=== PATIENT | male | born 1935 | race African-American/Black ===

== ENCOUNTER 2017-03-22 22:56 | Inpatient (IN) ==
[2017-03-22] MEDS ORDERED: CATAPRES PO ONE (23:13)
[2017-03-22 23:31] LABS: MANUAL DIFF NEEDED? NO
[2017-03-22 23:40] LABS: BASO% 0.6 % (0.0-0.8); EOS# 0.34 X1000 (0.0-0.7); EOS% 3.4 % (0.0-10.0); HEMATOCRIT 37.2 % (42.0-52.0); HEMOGLOBIN 11.3 g/dL (14.0-18.0); IMM GRAN# 0.06 X1000 (0.0-0.04); IMM GRAN% 0.6 % (0.0-0.5); LYMPH# 2.52 X1000 (1.2-3.4); LYMPH% 25.5 % (20.5-51.1); MCH 27.8 PG (27-31); MCHC 30.4 g/dL (33-37); MCV 91.4 FL (81-99); MONO# 0.71 X1000 (0.11-0.59); MONO% 7.2 % (1.7-9.3); MPV 11.6 FL (7.4-10.4); NEUT% 62.7 % (42.2-75.2); PLT 202 X1000 (130-400); RBC 4.07 XMIL (4.7-6.1)
[2017-03-23] MEDS ORDERED: TORADOL IV ONE (00:18)
[2017-03-23] MEDS ORDERED: LABETALOL IV ONE (00:25)
--- NOTE | 2017-03-23 01:37 | PROVIDER DOCUMENTATION ---
This chart was entered by Brooke Foster Scribe, acting as scribe for Arturo Rodriguez MD. HPI-General Adult - General Chief Complaint: Flank Pain Stated Complaint: LEFT FLANK PAIN Time Seen by Provider: 03/22/17 23:00 Source: patient Allergies/Adverse Reactions: Patient Allergies Allergy/AdvReac Type Severity Reaction Status Date / Time No Known Allergies Allergy Verified 03/22/17 23:07 Home Medications: Home Medication List Medication Instructions Recorded Confirmed Last Taken Type Clonidine HCl [Clonidine HCl] 1 tab PO DAILY 03/22/17 03/23/17 03/21/17 History - History of Present Illness -Gen Adult Nature of Presenting Problems: Patient is an 81 year old male with a history of CHF and renal failure who presents in the ED via EMS with complaints of "left kidney pain." He states he has had pain over his left kidney for the last month that has worsened the last two days, and states he has also had elevated blood pressure. He also states he has chronic lower extremity edema but has had worsening edema of his left leg recently. He reports he also has a history of renal failure, but refused dialysis. He denies urinary changes, fall, and any other symptoms. Location of Pain/Injury: reports: other ("left kidney") Pain Radiation: reports: no radiation Quality of Pain: reports: aching Severity: reports: moderate Onset/Duration: reports: gradual (x1 month) Timing: reports: still present, changing over time, getting worse (x2 days) Context/Activities at Onset: reports: none Modifying Factors: improves with: nothing Associated Symptoms: reports: other (hypertension, edema) Similar Symptoms Previously?: Yes Recently seen or treated by another doctor?: No Review of Systems - Adult - REVIEW OF SYSTEMS - ADULT Constitutional: reports: other (hypertension) Eyes: reports: no symptoms reported Ears, Nose, Mouth & Throat: reports: no symptoms reported Cardiovascular: reports: edema Respiratory: reports: no symptoms reported Gastrointestinal: reports: other ("left kidney pain") Genitourinary: reports: no symptoms reported. denies: see HPI, dysuria, discharge, frequency, flank pain, frequent UTI's, hematuria, hesitency, incontinence, urinary retention, urgency, other Musculoskeletal: reports: no symptoms reported Integumentary: reports: no symptoms reported Neurological: reports: no symptoms reported Psychiatric: reports: no symptoms reported Endocrine: reports: no symptoms reported Hematologic/Lymphatic: reports: no symptoms reported Allergic/Immunologic: reports: no symptoms reported All Other Systems: Reviewed and Negative Past History - Adult - PAST MEDICAL HISTORY-ADULT Review of Records: reports: Nursing Assessment Review, Medications Reviewed Major Childhood Illnesses: reports: denies history Cardiovascular: reports: CHF Respiratory: reports: denies history Obstetrical/Gynecological: reports: denies history Genitourinary: reports: kidney disease, kidney stones Musculoskeletal: reports: denies history Neurological: reports: denies history Psychiatric: reports: denies history Endocrine/Immune: reports: denies history Other Conditions: reports: denies history - PRIOR SURGERIES/PROCEDURES Surgical/Procedure History: reports: none - IMMUNIZATION STATUS Childhood Immunizations: See Nurse Assessment Flu Vaccine: See Nurse Assessment - FAMILY HISTORY Family History: reviewed, not pertinent - SOCIAL HISTORY Smoking: denies Substance Use: none/never Alcohol Use Frequency: never Physical Exam-General - PHYSICAL EXAM-ADULT Initial Vital Signs Reviewed: Yes - CONSTITUTIONAL General Appearance: alert, no apparent distress - EYES Eyes: PERRL/EOMI, pink conjunctivae - HEAD, EARS, NOSE, MOUTH & THROAT HENMT: normocephalic/atraumatic, moist mucous membranes - NECK Neck: non-tender, full range of motion, supple, normal inspection - RESPIRATORY Respiratory: chest non-tender, lungs clear, normal breath sounds, no pleuratic chest pain, no respiratory distress, no accessory muscle use - CARDIOVASCULAR Cardiovascular: normal peripheral pulses, regular rate, rhythm, no gallop, no JVD, no murmur - GASTROINTESTINAL (ABDOMEN) Abdominal Exam: soft, no organomegaly, no pulsatile mass - LYMPHATIC Lymphatic: no adenopathy - MUSCULOSKELETAL Back Exam: normal inspection, no CVA tenderness, no vertebral tenderness Extremity: normal range of motion, non-tender, no calf tenderness, normal capillary refill, pelvis stable, other (3+ edema of right lower extremity) - SKIN Integumentary: normal color, normal turgor, warm/dry - NEUROLOGIC Neurologic: grossly normal, no motor/sensory deficits - PSYCHIATRIC Psych/Mental Status: normal mood/affect, oriented x 3 Progress - PLAN OF CARE/RESULTS Progress/Plan/Lab Results: Vital Signs - 8 hr 03/22/17 22:57 03/22/17 23:03 Temperature 99 F Pulse Rate 90 87 Blood Pressure 241/156 O2 Sat by Pulse Oximetry 99 100 Laboratory Results - last 24 hr 03/22/17 03/22/17 23:27 23:27 WBC 9.90 RBC 4.07 L Hgb 11.3 L Hct 37.2 L MCV 91.4 MCH 27.8 MCHC 30.4 L RDW Std Deviation 14.5 Plt Count 202 MPV 11.6 H Immature Gran % (Auto) 0.6 H Neut % (Auto) 62.7 Lymph % (Auto) 25.5 [place] % (Auto) 7.2 Eos % (Auto) 3.4 Baso % (Auto) 0.6 Immature Gran # (Auto) 0.06 H Neut # (Auto) 6.21 Lymph # (Auto) 2.52 [place] # (Auto) 0.71 H Eos # (Auto) 0.34 Baso # (Auto) 0.06 Estimated GFR/1.73 m2 31 Orders Category Date Time Status NPO Diet 03/22/17 23:[address] ABDOMEN/PELVIS W/O CONTRAST [CT] Stat Exams 03/22/17 23:07 Ordered CBC WITH ELECTRONIC DIFF [HEME] Stat Lab 03/22/17 23:27 Completed COMPREHENSIVE METABOLIC PANEL [CHEM] Stat Lab 03/22/17 23:27 Results LIPASE [CHEM] Stat Lab 03/22/17 23:[address] W/POSS RFLX CULT [URINALYSIS] Stat Lab 03/22/17 23:08 Uncollected Clonidine [Catapres] Med 03/22/17 23:13 Discontinued 0.2 mg PO NOW ONE Ketorolac [Toradol] Med 03/23/17 00:18 Discontinued 30 mg IV NOW ONE Result Diagrams: 03/22/17 23:27 03/23/17 02:20 - CONSULTS/PCP/HOSPITALIST Notification #1 *Consult/PCP/Hospitalist*: [place] Time Discussed: 02:47 Consult Disposition: Admit Departure - Departure Date of Disposition Decision: 03/23/17 Time of Disposition Decision: 02:11 DIAGNOSIS: Flank pain, Renal insufficiency, Hyperkalemia, Uncontrolled hypertension Urinary tract infection Qualifiers: Urinary tract infection type: site unspecified Hematuria presence: with hematuria Qualified Code(s): N39.0 - Urinary tract infection, site not specified Disposition: ADMITTED INPATIENT 09 Certified Medical Emergency: Emergent Condition: Stable - Critical Care Note This patient required my direct & personal management of CC.: No Attestation - Physician/ HARJINDER Attestation Patient care was provided by Advanced Practice Provider:: No The physician spent face to face time with patient:: Yes Advanced Practice Provider documentation review:: Supervising physician onsite and consulted in the evaluation and care of this patient. The physician did have a face to face encounter with the patient. This chart was documented by the indicated scribe, (Brooke Foster Scribe) and accurately reflects the services I performed and decisions made by me, Arturo Rodriguez MD, as attested by the provider's signature.
[2017-03-23 01:43] LABS: ALBUMIN 3.7 g/dL (3.5-5.0); CALCIUM 8.6 mg/dL (8.8-10.2); TOTAL BILIRUBIN 0.3 mg/dL (0.20-1.00); TOTAL PROTEIN 7.9 g/dL (6.3-8.3)
[2017-03-23 01:48] LABS: POTASSIUM 6.9 mmol/L (3.5-5.1)
[2017-03-23] MEDS ORDERED: SODIUM BICARBONATE 8.4% IV PUSH ONE (01:49)
[2017-03-23] MEDS ORDERED: D50W SYRINGE IV ONE (01:51)
[2017-03-23] MEDS ORDERED: HUMULIN R IV ONE (01:52)
[2017-03-23 02:13] LABS: BILIRUBIN URINE NEGATIVE (NEGATIVE); COLOR YELLOW; GLUCOSE URINE NEGATIVE (NEGATIVE); LEUKOCYTES URINE 2+ (NEGATIVE); URINE SOURCE CLEAN CATCH
[2017-03-23 02:15] LABS: URINE CULTURE PL NEEDED? YES; URINE EPITHELIAL CELLS <10 /HPF (<10); URINE RBC 20-40 /HPF (<10); URINE WBC 20-40 /HPF (<10)
--- NOTE | 2017-03-23 02:18 | ED EKG INTERP ---
This chart was entered by Brooke Foster Scribe, acting as scribe for Arturo Rodriguez MD. EKG Interpretation - EKG Time of EKG reading by physician:: 01:53 EKG Read and Signed by:: Arturo Rodriguez (no STEMI) EKG Interpretation (*Must complete 3 of following elements*): Abnormal Rate: 53 Rhythm: sinus bradycardia [place]: normal QRS: normal [place] Interval: normal ST Wave: non-specific ST changes (ST & T wave abnormality, consider lateral ischemia) Comments: poss. left atrial enlargement Attestation - Physician/ HARJINDER Attestation Patient care was provided by Advanced Practice Provider:: No The physician spent face to face time with patient:: Yes Advanced Practice Provider documentation review:: Supervising physician onsite and consulted in the evaluation and care of this patient. The physician did have a face to face encounter with the patient. This chart was documented by the indicated scribe, (Brooke Foster Scribe) and accurately reflects the services I performed and decisions made by me, Arturo Rodriguez MD, as attested by the provider's signature.
[2017-03-23] MEDS ORDERED: ROCEPHIN 1 GM in NS 50 ML IV ONE (02:43)
[2017-03-23 02:45] LABS: CALCIUM 8.1 mg/dL (8.8-10.2)
[2017-03-23 02:47] LABS: POTASSIUM 6.6 mmol/L (3.5-5.1)
[2017-03-23] MEDS ORDERED: NS 1,000 ML IV ONE (02:53)
[2017-03-23] MEDS: KAYEXALATE PO SCH ×5 (04:52→22:03)
--- NOTE | 2017-03-23 05:33 | EKG Report ---
Test Performed on : 03/23/2017 01:53:38 AM Test Reason : pain Blood Pressure : / mmHG Vent. Rate : 053 BPM Atrial Rate : 053 BPM P-R Int : 172 ms QRS Dur : 082 ms QT Int : 434 ms P-R-T Axes : 044 033 146 degrees QTc Int : 407 ms Sinus bradycardia. Possible Left atrial enlargement ST \T\ T wave abnormality, consider lateral ischemia Abnormal ECG No previous ECGs available Unconfirmed Result
[2017-03-23 05:50] LABS: BLOOD URINE 3+ (NEGATIVE); CLARITY SL. CLOUDY (CLEAR); NITRITE URINE NEGATIVE (NEGATIVE); PROTEIN URINE 2+(100 mg/dL) mg/dL (NEGATIVE); SP GRAVITY URINE 1.005; UROBILINOGEN URINE NORMAL
[2017-03-23] MEDS ORDERED: DILAUDID IV ONE (05:54)
--- NOTE | 2017-03-23 07:40 | Diag Imaging Result Doc PS360 ---
EXAM: CT ABDOMEN/PELVIS W/O CONTRAST - 03/22/2017 HISTORY: left flank pain TECHNIQUE: Without contrast CT renal stone search. Dose reduction protocol. COMPARISON: None. FINDINGS: There is no hydronephrosis or perinephric edema identified. There is no renal stone identified. There is a 4.7 cm left renal cyst. The urinary bladder is moderately distended. There is no evidence of bowel obstruction. There is uncomplicated colonic diverticulosis which is most extensive at the sigmoid. The appendix is unremarkable. There is no free air. There are multiple calcified granulomas from old granulomatous disease of the liver and spleen. There is a 1.7 cm hepatic cysts. The adrenal glands, pancreas, and gallbladder are unremarkable. There are some scattered borderline retroperitoneal and inguinal lymph nodes. There are nonspecific hazy mild opacities at the lung bases. There are substantial lumbar spine degenerative changes noted, including apparent spinal stenosis at several levels. Images of pelvis otherwise show enlarged prostate. There is heterotopic bone formation near the anterior left hip. IMPRESSION: No evidence of renal stone or hydronephrosis. Distended urinary bladder. No bowel obstruction. Unremarkable appendix. Uncomplicated colonic diverticulosis. Scattered borderline retroperitoneal and inguinal lymph nodes. Lumbar spine degenerative changes, including apparent multilevel spinal stenosis. The construction project assistant radiologist provided primary results at 1:27 AM on 03/23/2017. Electronically signed by Madhu Clinton 03/23/2017 7:37 AM
[2017-03-23 07:44] LABS: HEMATOCRIT 31.9 % (42.0-52.0); HEMOGLOBIN 9.6 g/dL (14.0-18.0); MCH 27.7 PG (27-31); MCHC 30.1 g/dL (33-37); MCV 92.2 FL (81-99); MPV 11.2 FL (7.4-10.4); RBC 3.46 XMIL (4.7-6.1)
[2017-03-23 08:03] LABS: ALBUMIN 3.4 g/dL (3.5-5.0); CALCIUM 8.1 mg/dL (8.8-10.2); TOTAL BILIRUBIN 0.3 mg/dL (0.20-1.00); TOTAL PROTEIN 6.9 g/dL (6.3-8.3)
[2017-03-23 08:05] LABS: POTASSIUM 6.3 mmol/L (3.5-5.1)
[2017-03-23] MEDS: CATAPRES PO SCH (12:28)
[2017-03-23] MEDS ORDERED: DILAUDID IV PRN (13:15)
[2017-03-23] MEDS ORDERED: SODIUM CHLORIDE 0.9% INJ ONE (13:57)
[2017-03-23] MEDS ORDERED: PHENERGAN IV ONE (13:57)
[2017-03-23] MEDS ORDERED: PHENERGAN IV PRN (14:00)
[2017-03-23] MEDS ORDERED: SODIUM CHLORIDE 0.9% INJ PRN (14:00)
--- NOTE | 2017-03-23 15:50 | HISTORY AND PHYSICAL ---
PRIMARY CARE PHYSICIAN: Dr. Mooney. CHIEF COMPLAINT: Left kidney pain x1 month but worse over the last 2 days. HISTORY OF PRESENTING ILLNESS: This is an 81-year-old male who presents to [facility] ER with complaints of left kidney pain for 1 month that has progressively worsened over the last 2 days. States he has chronic kidney disease. His workup in the ER showed a potassium of 6.9, a creatinine of 2.1 with a BUN of 29. Urinalysis showed 3+ blood, 20-40 microscopic red blood cells, 2+ white blood cells, and 2+ bacteria. An abdomen and pelvis CT was obtained that showed no evidence of a renal stone or hydronephrosis. No bowel obstruction. So, he was admitted to the medical unit for further evaluation and treatment. PAST MEDICAL HISTORY: Congestive heart failure, chronic kidney disease, and hypertension. PAST SURGICAL HISTORY: None. FAMILY HISTORY: Noncontributory. SOCIAL HISTORY: He lives with family. Denies any tobacco, alcohol, or illicit drug use. ALLERGIES: He has no known drug allergies. HOME MEDICATIONS: He takes clonidine 0.1 mg p.o. daily. LABORATORY DATA: White blood cells of 9.90, hemoglobin 11.3, hematocrit 37.2, platelets 202,000. Sodium 137, potassium 6.9, chloride 108, CO2 21, BUN of 29, creatinine 2.1, glucose 97. Lipase of 25. Urinalysis showed 3+ blood, negative nitrites, 2+ white blood cells, 20-40 microscopic red blood cells, and 2+ bacteria. A CT of the abdomen and pelvis showed no evidence of a renal stone or hydronephrosis. No bowel obstruction. An unremarkable appendix. Uncomplicated colonic diverticulosis. REVIEW OF SYSTEMS: He denied any fever, chills, blurred vision, dizziness, chest pain, coughing, shortness of breath. He was positive for left flank pain. Denied any constipation, diarrhea. PHYSICAL EXAMINATION: VITAL SIGNS: On arrival, he had a temperature of 99 degrees, pulse 90, respirations 20, blood pressure 241/156, saturating 100% on room air. He was given clonidine 2 mg x1 dose and labetalol 10 mg IV x1 dose in the emergency room. Currently blood pressure is 166/86. GENERAL: This is an 81-year-old male who is lying in the bed and answers questions appropriately. HEENT: Normocephalic, atraumatic. Pupils are equal, round, reactive to light. Extraocular movements are intact. Oropharynx and nares are clear. NECK: Supple. LUNGS: Clear to auscultation bilaterally with equal lung expansion and chest wall movement. HEART: With regular rate and rhythm. No murmurs, rubs, or gallops. ABDOMEN: Soft, nontender, nondistended. Bowel sounds are present x4 quadrants. EXTREMITIES: No clubbing, cyanosis, or edema. NEUROLOGICAL: The cranial nerves 2 through 12 are grossly intact. ASSESSMENT: 1. Left flank pain. 2. Urinary tract infection with hematuria. 3. Hyperkalemia. 4. Chronic kidney disease stage 3. PLAN: He was admitted to the medical unit at [place]. Placed on telemetry, O2 per protocol, healthy heart diet. We are obtaining a urine culture. Normal saline at 75 mL an hour, Rocephin 1 gram IV q.24. Giving Kayexalate 15 g p.o. q.6 hours. We will recheck a CBC and BMP in the a.m. Dictated by GWENDOLYN Guillory for Matthieu Martin MD cc: GWENDOLYN Guillory MD Dr. Powell
[2017-03-23] MEDS: DILAUDID IV PRN (22:27)
[2017-03-23] MEDS: ZOFRAN IV PRN (22:28)
[2017-03-24] MEDS: DILAUDID IV PRN ×3 (03:30→16:46)
[2017-03-24] MEDS: ROCEPHIN 1 GM in NS 50 ML IV SCH (03:56)
[2017-03-24] MEDS: KAYEXALATE PO SCH ×2 (03:56→08:46)
[2017-03-24] MEDS: ZOFRAN IV PRN ×2 (03:59→08:46)
[2017-03-24 06:16] LABS: MANUAL DIFF NEEDED? NO
[2017-03-24 06:47] LABS: BASO% 0.3 % (0.0-0.8); EOS# 0.14 X1000 (0.0-0.7); EOS% 1.1 % (0.0-10.0); HEMATOCRIT 37.1 % (42.0-52.0); HEMOGLOBIN 11.1 g/dL (14.0-18.0); IMM GRAN# 0.04 X1000 (0.0-0.04); IMM GRAN% 0.3 % (0.0-0.5); LYMPH# 2.73 X1000 (1.2-3.4); LYMPH% 21.4 % (20.5-51.1); MCHC 29.9 g/dL (33-37); MCV 93.7 FL (81-99); MONO# 1.71 X1000 (0.11-0.59); MONO% 13.4 % (1.7-9.3); MPV 11.5 FL (7.4-10.4); NEUT% 63.5 % (42.2-75.2); PLT 167 X1000 (130-400); RBC 3.96 XMIL (4.7-6.1)
[2017-03-24 07:04] LABS: CALCIUM 8.1 mg/dL (8.8-10.2)
[2017-03-24 07:08] LABS: POTASSIUM 6.7 mmol/L (3.5-5.1)
[2017-03-24] MEDS: CATAPRES PO SCH (08:46)
[2017-03-24] MEDS ORDERED: CALCIUM GLUCONATE 4.65 MEQ in NS 50 ML IV ONE (10:40)
[2017-03-24] MEDS ORDERED: VELTASSA PO ONE (10:41)
[2017-03-24] MEDS ORDERED: ALBUTEROL NEB INH ONE ×2 (10:42→11:02)
[2017-03-24] MEDS ORDERED: HUMULIN R (PARKWAY) SUBQ ONE ×2 (10:46→14:30)
[2017-03-24] MEDS ORDERED: D50W SYRINGE IV ONE ×2 (10:47→14:30)
[2017-03-24] MEDS ORDERED: NS 1,000 ML IV ONE ×2 (11:04→15:00)
[2017-03-24] MEDS ORDERED: NS 250 ML ONE (11:42)
--- NOTE | 2017-03-24 12:05 | PROGRESS NOTE ---
DATE: 03/24/2017 SUBJECTIVE: The patient has no focal complaints except he is not happy about the diarrhea he is getting, and we had not been able to maintain IV access, and he is upset about that. He wanted to go home. We had a long discussion about those issues. OBJECTIVE: Blood pressure 165/67, heart rate of 83, respiratory rate 18, temperature 97.5 degrees, 97 2 L. Cardiovascular: Regular rate and rhythm. Pulmonary: Bilateral breath sounds clear to auscultation. GI: Soft, nontender, nondistended. Bowel sounds are positive. LABORATORY DATA: White count 12, hemoglobin and hematocrit 11 and 37. Platelets 167,000. Potassium 6.7. BUN and creatinine of 33 and 2.4. PROBLEM LIST: 1. Acute kidney failure. I think he probably has chronic kidney failure. His GFR is around 26, so I think that puts him right at stage 4, G4, it looks like, although he came in at 31, so he was round about stage 3 at that time; but, in any case, we will give fluids. I suspect he has chronic renal failure. He has got lower extremity edema which may be related to his hypertensive nephropathy. He does have significant proteinuria. We will do a 24-hour urine to evaluate for nephrotic syndrome. 2. Hyperkalemia persists. I do not think he has been taking the Kayexalate as ordered. We will start Veltassa. I do think he needs to take a dose of Kayexalate this morning though, and we discussed that this was really the only treatment he had because he does not want to pursue dialysis we also instituted other measures to get his potassium level down. We will repeat his level this afternoon and follow. I do think he probably needs renal consultation because he needs chronic management of this but, again, he is very adamant about not wanting dialysis. 3. Urinary tract infection. Continue empiric antibiotics. Urine culture is no growth thus far. DISPOSITION: Pending resolution of his renal issues specially his hyperkalemia. cc: Magdy Long MD
--- NOTE | 2017-03-24 13:42 | Diag Imaging Result Doc PS360 ---
EXAM: CHEST-PORTABLE - 03/24/2017 HISTORY: picc TECHNIQUE: Portable chest 12:37 PM with additional image at 12:46 PM COMPARISON: None. FINDINGS: There is a PICC line which enters from the right. On the first image, the tip of the PICC line is at the right atrium. On the second image, the PICC line has been withdrawn mildly, with its tip at the mid superior vena cava. There is mild cardiomegaly. There is mild subsegmental atelectasis at the lung bases. There is no consolidation, pleural effusion, or pneumothorax identified. IMPRESSION: Tip of PICC line at mid superior vena cava. Mild cardiomegaly. Electronically signed by Madhu Clinton 03/24/2017 1:39 PM
--- NOTE | 2017-03-24 17:35 | CONSULTATION ---
DATE OF CONSULTATION: 03/24/2017 REASON FOR CONSULTATION: Chronic kidney disease and hyperkalemia. HISTORY OF PRESENT ILLNESS: Mr. Torres is an 81-year-old man with history of congestive heart failure and hypertension. He says he has been aware of kidney disease for about a year when Dr. Mooney recommended that he come to see us. He declined and has not sought attention for his kidney disease. Otherwise, he came to the hospital because he was having pain in the left flank. This has been going on for probably a month but was more bothersome over the weekend. The pain is in the left flank and was worse with certain changes in position. Not colicky. No nausea or vomiting, chills, fevers, anorexia, change in bowel habits, etc. He came for evaluation and was seen in the emergency room where he was noted to have a creatinine of 2.1. We had no old data in the system. Potassium was 6.9 with a normal anion gap. CT of the abdomen did not demonstrate any kidney abnormalities. He has been treated with Kayexalate and Veltassa to try and manage his potassium. Otherwise, he states he feels fine. He does have lower extremity swelling but this has been a very stable problem. Does have some shortness of breath which he attributes to asbestosis. No change in those symptoms. PAST MEDICAL HISTORY: As above. HOME MEDICATION: Was clonidine 0.1 mg daily. Currently he is receiving Veltassa, ceftriaxone, promethazine, ondansetron, hydromorphone, heparin, clonidine, normal saline. ALLERGIES: None. SOCIAL HISTORY: He lives in [place] with his family. No alcohol or tobacco. FAMILY HISTORY: Negative for renal disease, otherwise noncontributory. REVIEW OF SYSTEMS: Otherwise noncontributory. PHYSICAL EXAMINATION: Vital Signs: Blood pressure 165/67, heart rate 83, respiration 18, afebrile. Generally: He is in no acute distress. Skin: Warm and dry. HEENT: Conjunctivae are pink. Pupils are equal. Oropharynx is clear. Normal tongue, normal dentition. Neck: Supple. Trachea is midline. No jugular venous distention. Heart: Regular with a gallop. No rubs or murmurs. Lungs: Have equal excursion. Equal breath sounds. No dullness, crackles, wheezes, accessory muscle use or retractions. Abdomen: Soft, nontender. Bowel sounds present. Extremities: Have 2+ edema extending to the knee. No clubbing or cyanosis. LABORATORY DATA: Sodium 137, potassium 6.7, chloride 107, bicarbonate 17, BUN 33, creatinine 2.4. Hemoglobin 11.1. IMPRESSION: 1. Chronic kidney disease. Likely he is at his historical baseline. Will complete evaluation with 24 hour urine. 2. Hyperkalemia. He has type 4 renal tubular acidosis pattern. It is likely that he has been living with significant hyperkalemia for extended time. He is tolerating it rather well. I agree with the use of Veltassa and we can continue that as an outpatient if appropriate. Low potassium diet and addition of sodium bicarbonate may also help. cc: Lopez Alcaraz MD
[2017-03-24 19:45] LABS: POTASSIUM 5.5 mmol/L (3.5-5.1)
[2017-03-24] MEDS: HEPARIN SUBQ SCH (20:59)
[2017-03-24] MEDS: SODIUM BICARBONATE PO SCH (21:00)
[2017-03-24] MEDS: APRESOLINE IV PRN (22:20)
[2017-03-25] MEDS ORDERED: NS 1,000 ML ONE (02:31)
[2017-03-25] MEDS: APRESOLINE IV PRN (05:00)
[2017-03-25] MEDS: ROCEPHIN 1 GM in NS 50 ML IV SCH (05:25)
[2017-03-25 06:06] LABS: HEMATOCRIT 34.8 % (42.0-52.0); HEMOGLOBIN 10.3 g/dL (14.0-18.0); MCH 27.5 PG (27-31); MCHC 29.6 g/dL (33-37); MCV 92.8 FL (81-99); MPV 11.8 FL (7.4-10.4); RBC 3.75 XMIL (4.7-6.1)
[2017-03-25 06:35] LABS: CALCIUM 8.3 mg/dL (8.8-10.2); POTASSIUM 4.7 mmol/L (3.5-5.1)
[2017-03-25] MEDS: HEPARIN SUBQ SCH ×2 (08:23→22:24)
[2017-03-25] MEDS: CATAPRES PO SCH ×2 (08:23→22:25)
[2017-03-25] MEDS: SODIUM BICARBONATE PO SCH ×2 (08:24→22:25)
[2017-03-25] MEDS: VELTASSA PO SCH (10:10)
[2017-03-25] MEDS ORDERED: NS 1,000 ML IV SCH (16:50)
[2017-03-25] MEDS ORDERED: ZOFRAN IV PRN (17:31)
[2017-03-25] MEDS ORDERED: LACTULOSE PO PRN (17:44)
[2017-03-25] MEDS ORDERED: LACTULOSE PO ONE (17:44)
[2017-03-25 20:08] LABS: UR CREATININE 90.1 mg/dL (14-26); UR PROTEIN 70.8 mg/dL
[2017-03-25 20:23] LABS: UR CREATININE TOTAL 1351.5 mg/24 (800-1800)
[2017-03-26] MEDS: ROCEPHIN 1 GM in NS 50 ML IV SCH (02:52)
[2017-03-26] MEDS: APRESOLINE IV PRN (03:55)
--- NOTE | 2017-03-26 04:00 | ECHO REPORT ---
ORDER DATE: 03/24/2017 MEASUREMENTS: Left ventricular end-diastolic diameter 4.1, end-systolic diameter 2.5, septal thickness 1.6, posterior wall thickness 1.6, left atrium 4.2, aortic root 3.5. SUMMARY: 1. Technically difficult study due to limited acoustic window quality. 2. Mild sclerosis of trileaflet aortic valve demonstrated with adequate aortic valve opening evident. Peak gradient across the aortic valve is less than 15 mmHg. Mitral, tricuspid, and pulmonic valves are without evidence of structural abnormality. There is trace tricuspid regurgitation. The aortic root is normal in size. 3. Normal left ventricular chamber size with moderate concentric left hypertrophy is demonstrated. Estimated left ejection fraction appears to be at least 70%. No regional wall motion abnormalities are evident. Doppler suggests grade 1 left ventricular diastolic dysfunction. Left atrium is mildly enlarged. Right atrium and right ventricle are normal in size with normal right ventricular systolic function. 4. No pericardial effusion. 5. Appearance of the inferior vena cava suggests normal central venous pressure. CONCLUSIONS: 1. Technically difficult study. 2. Mild aortic valve sclerosis without stenosis. 3. Moderate concentric left hypertrophy with estimated left ejection fraction greater than 70%. 4. Mild left atrial enlargement. 5. Grade 1 left ventricular diastolic dysfunction. cc: MD Magdy Isabel MD
[2017-03-26 06:25] LABS: HEMATOCRIT 32.4 % (42.0-52.0); HEMOGLOBIN 9.7 g/dL (14.0-18.0); MCH 27.4 PG (27-31); MCHC 29.9 g/dL (33-37); MCV 91.5 FL (81-99); RBC 3.54 XMIL (4.7-6.1)
[2017-03-26 06:44] LABS: ALBUMIN 3.3 g/dL (3.5-5.0); CALCIUM 7.9 mg/dL (8.8-10.2); POTASSIUM 4.3 mmol/L (3.5-5.1)
[2017-03-26] MEDS: SODIUM BICARBONATE PO SCH (09:27)
[2017-03-26] MEDS: HEPARIN SUBQ SCH (09:27)
[2017-03-26] MEDS: CATAPRES PO SCH (09:28)
[2017-03-26] MEDS: VELTASSA PO SCH (11:06)
[2017-03-26] MEDS ORDERED: APRESOLINE PO ONE (15:28)
[2017-03-26 16:08] VITALS: BP 208/93
--- NOTE | 2017-03-27 10:21 | DISCHARGE SUMMARY ---
ADMISSION DATE: 03/23/2017 DISCHARGE DATE: 03/26/2017 DISCHARGE DIAGNOSES: 1. Acute kidney injury. 2. Accelerated hypertension, uncontrolled, malignant. 3. Persistent hyperkalemia. 4. Chronic renal failure, stage 3. 5. Urinary tract infection with nonspecific culture. HOSPITAL COURSE: Briefly, this is an 81-year-old male presenting with left flank pain. He had a creatinine of 2.1 and a potassium of 6.9. Abdominal pelvic CT did not show renal stone or hydronephrosis. He was placed on O2, IV fluids, Rocephin, and he was given Kayexalate every 6 hours. On 03/24/2017, he got a little bit upset about the amount of diarrhea he was having, various complaints. We explained that we needed to watch him until his potassium level at least stabilized and we knew how his kidney function was going to progress. We did a 24-hour urine and 24-hour creatinine. He was placed on veltassa in addition to Kayexalate. The following day, his potassium improved. It went down to 5.5, then 4.7, on the day of discharge 4.3. His creatinine has stayed stable for 3 days, 2.2, and his hemoglobin and hematocrit has hovered between 9 and 32 and up to 10 and 34. Clinically, he stabilized and his urine test did not show significant proteinuria. GFR has hovered around 29-30. Dr. Alcaraz was consulted and made some recommendations that he would need to be followed as an outpatient, but I think his normal level of renal function creatinine is around 2.2. hyperkalemia, Dr. Alcaraz felt was related to possible RTA, type 4. Recommended a low potassium diet and sodium bicarbonate. He has been stable here. My plan was not to necessarily discharge him on veltassa or sodium bicarbonate. We will touch base with Dr. Alcaraz. DISCHARGE MEDICATIONS: 1. Clonidine 0.1 b.i.d., it has been a medication before for him and I encouraged compliance. 2. Hydralazine 25 t.i.d., because his blood pressures have been 180s, sometimes down to the 160s, but I think he has longstanding hypertension. DISCHARGE CONDITION: Stable. PLAN: Please follow up with Dr. Mooney and Dr. Alcaraz. He was given WALDEMAR hose for his lower extremity edema. We will continue to follow. Greater than 32 minute discharge. cc: Magdy Long MD
== END 2017-03-26 18:05 | disposition home or self-care (01) ==
LOC: P.ED 22:56 → SUATTDRO 03-23 02:59 → P.MEDSURG 03-23 02:59
PROVIDERS: ATTEND Internal Medicine

== ENCOUNTER 2018-12-01 12:46 | Inpatient (IN) ==
[2018-12-01] MEDS ORDERED: LASIX IV ONE (13:24)
[2018-12-01] MEDS ORDERED: LABETALOL IV ONE (13:24)
[2018-12-01] MEDS ORDERED: DUONEB (A & A) INH ONE (13:25)
[2018-12-01] MEDS ORDERED: LABETALOL ONE (13:41)
--- NOTE | 2018-12-01 13:55 | Diag Imaging Result Doc PS360 ---
EXAM: CHEST-PORTABLE HISTORY: DYSPNEA TECHNIQUE: Portable chest single view COMPARISON: 03/24/2017 FINDINGS: The lungs are well expanded. The heart is mildly enlarged. The vessels are not distended. There are no infiltrates. No effusion identified. Prominent arthritis to each shoulder. IMPRESSION: Cardiomegaly, but no definite congestive failure. Electronically signed by Brandon Childs 12/01/2018 1:53 PM
[2018-12-01 14:16] LABS: BASO# 0.04 X1000 (0.0-0.2); BASO% 0.4 % (0.0-0.8); EOS% 3.8 % (0.0-10.0); HEMATOCRIT 37.9 % (42.0-52.0); HEMOGLOBIN 11.7 g/dL (14.0-18.0); IMM GRAN# 0.03 X1000 (0.0-0.04); IMM GRAN% 0.3 % (0.0-0.5); LYMPH# 3.56 X1000 (1.2-3.4); LYMPH% 33.6 % (20.5-51.1); MCH 28.9 PG (27-31); MCHC 30.9 g/dL (33-37); MCV 93.6 FL (81-99); MONO% 7.5 % (1.7-9.3); MPV 11.4 FL (7.4-10.4); NEUT# 5.78 X1000 (1.4-6.5); NEUT% 54.4 % (42.2-75.2); PLT 211 X1000 (130-400); RBC 4.05 XMIL (4.7-6.1); WBC 10.61 X1000 (4.8-10.8)
[2018-12-01 14:23] LABS: BILIRUBIN URINE NEGATIVE (NEGATIVE); BLOOD URINE 3+ (NEGATIVE); CLARITY VERY CLOUDY (CLEAR); COLOR YELLOW; GLUCOSE URINE NEGATIVE (NEGATIVE); KETONE URINE NEGATIVE (NEGATIVE); LEUKOCYTES URINE 2+ (NEGATIVE); NITRITE URINE NEGATIVE (NEGATIVE); PROTEIN URINE 2+(100 mg/dL) mg/dL (NEGATIVE); SP GRAVITY URINE 1.005; UROBILINOGEN URINE NORMAL
[2018-12-01 14:26] LABS: URINE SOURCE CLEAN CATCH
[2018-12-01 14:29] LABS: ALBUMIN 3.8 g/dL (3.5-5.0); CALCIUM 7.9 mg/dL (8.8-10.2); POTASSIUM 5.6 mmol/L (3.5-5.1); TOTAL BILIRUBIN 0.2 mg/dL (0.20-1.00); TOTAL PROTEIN 7.5 g/dL (6.3-8.3)
[2018-12-01 14:29] LABS: URINE EPITHELIAL CELLS <10 /HPF (<10); URINE WBC TNTC /HPF (<10)
[2018-12-01 14:30] LABS: URINE BACTERIA 4+ /HFP; URINE CAST NONE SEEN /LPF; URINE CRYSTAL NONE SEEN /HPF; URINE YEAST NONE SEEN /HPF
[2018-12-01 14:59] LABS: BE -7.1 mmoll (-3.0-3.0); BLOOD TYPE ARTERIAL; HCO3-(ACT) 19.3 mmoll (20.0-26.0); METHB 1.3 % (0.0-1.5); O2(CT) 15.8 mL/dL (15.0-23.0); O2HB 93.9 % (95.0-99.0); PCO2(98.6) 38 mmHg (35-45); PO2(98.6) 77 mmHg (60-100); SAMPLE BLOOD; SAO2 97.1 % (95.0-100.0); THB 11.9 g/dL (11.5-17.4)
[2018-12-01 15:30] LABS: ALLEN TEST YES; MODALITY ROOM AIR
[2018-12-01] MEDS ORDERED: ZOSYN 2.25 GM in NS 50 ML IV ONE (15:34)
--- NOTE | 2018-12-01 16:34 | Extremity Venous Study ---
EXAM: Venous U/S Bilateral Legs - 12/01/2018 HISTORY: DYSPNEA/CP LOWER EXTREMITY EDEMA RT>LT TECHNIQUE: Bilateral lower extremity Doppler venous ultrasound COMPARISON: None. FINDINGS: The deep veins of the bilateral lower extremities demonstrate flow and compressibility. There are no filling defects identified. IMPRESSION: No evidence of deep venous thrombosis in either lower extremity. Electronically signed by Madhu Clinton 12/01/2018 4:31 PM
--- NOTE | 2018-12-01 16:54 | EKG Report ---
Test Performed on : 12/01/2018 2:58:42 PM Test Reason : CP Blood Pressure : / mmHG Vent. Rate : 077 BPM Atrial Rate : 077 BPM P-R Int : 168 ms QRS Dur : 086 ms QT Int : 388 ms P-R-T Axes : 041 018 165 degrees QTc Int : 439 ms Normal sinus rhythm. Possible Left atrial enlargement ST & T wave abnormality, consider inferolateral ischemia Abnormal ECG When compared with ECG of 01-DEC-2018 13:11, (Unconfirmed) No significant change was found Unconfirmed Result
[2018-12-01] MEDS ORDERED: APRESOLINE IV ONE (17:23)
[2018-12-01] MEDS ORDERED: ZOFRAN IV PRN (18:35)
[2018-12-01] MEDS ORDERED: KAYEXALATE PO ONE (18:40)
[2018-12-01] MEDS ORDERED: DUONEB (A & A) INH PRN (18:43)
[2018-12-01] MEDS ORDERED: NITROGLYCERIN 50 MG/D5W 50 MG/250 ML IV.SOLN ONE (18:47)
--- NOTE | 2018-12-01 19:05 | PROVIDER DOCUMENTATION ---
This chart was entered by Samantha Carr Scribe, acting as scribe for Walter Duvall DO. HPI-Respiratory General - General Chief Complaint: Shortness of Breath Stated Complaint: SOB Time Seen by Provider: 12/01/18 13:17 Source: patient Allergies/Adverse Reactions: Patient Allergies Allergy/AdvReac Type Severity Reaction Status Date / Time No Known Allergies Allergy Verified 03/22/17 23:07 Home Medications: Home Medication List Medication Instructions Recorded Confirmed Last Taken Type Clonidine [Catapres] 0.1 mg PO BID #60 tablet 03/26/17 Unknown Rx Hydralazine [Apresoline] 25 mg PO TID #90 tablet 03/26/17 Unknown Rx - History of Present Illness-Resp Nature of Presenting Problem: Patient is a 82 year old male who presents with shortness of breath and chest tightness. Patient states history of HTN and pulmonary fibrosis. Reports he ran out of HTN medication months ago. Denies fever. Quality of Pain: reports: tightness Severity in ED: reports: mild Onset/Duration: reports: gradual Timing: reports: still present, getting worse Current Respiratory Medication Therapy: Initiated see nurses note Associated Symptoms: reports: chest pain/soreness (chest tightness), shortness of breath Similar Symptoms Previously?: Yes Recently seen or treated by another doctor?: No Review of Systems - Adult - REVIEW OF SYSTEMS - ADULT Constitutional: reports: no symptoms reported. denies: chills, fever, fatique Eyes: reports: no symptoms reported Ears, Nose, Mouth & Throat: reports: no symptoms reported Cardiovascular: reports: see HPI, chest pain (tightness). denies: heart murmur, orthopnea Respiratory: reports: see HPI, shortness of breath. denies: cough, wheezing Gastrointestinal: reports: no symptoms reported Genitourinary: reports: no symptoms reported Musculoskeletal: reports: no symptoms reported Integumentary: reports: no symptoms reported Neurological: reports: no symptoms reported Psychiatric: reports: no symptoms reported Endocrine: reports: no symptoms reported Hematologic/Lymphatic: reports: no symptoms reported Allergic/Immunologic: reports: no symptoms reported All Other Systems: Reviewed and Negative Past History - Adult - PAST MEDICAL HISTORY-ADULT Review of Records: reports: Nursing Assessment Review, Medications Reviewed, Social history reviewed & non-contributory. Major Childhood Illnesses: reports: denies history Cardiovascular: reports: CHF, HTN Respiratory: reports: denies history Gastrointestinal: reports: denies history Obstetrical/Gynecological: reports: denies history Genitourinary: reports: kidney disease, kidney stones Musculoskeletal: reports: denies history Neurological: reports: denies history Psychiatric: reports: denies history Endocrine/Immune: reports: denies history Other Conditions: reports: denies history - PRIOR SURGERIES/PROCEDURES Surgical/Procedure History: reports: none - IMMUNIZATION STATUS Childhood Immunizations: See Nurse Assessment Flu Vaccine: See Nurse Assessment - FAMILY HISTORY Family History: reviewed, not pertinent - SOCIAL HISTORY Smoking: denies Substance Use: denies Living Situation: family Physical Exam-General - PHYSICAL EXAM-ADULT Initial Vital Signs Reviewed: Yes - CONSTITUTIONAL General Appearance: alert, no apparent distress. negative: lethargic, slow to respond - EYES Eyes: PERRL/EOMI, pink conjunctivae. negative: sclera injected - HEAD, EARS, NOSE, MOUTH & THROAT HENMT: TMs normal, pharynx normal, other (upper dentures present. poor lower dentition. mallampati score 4.). negative: pharyngeal erythema - NECK Neck: other (degenerative changes present to c spine. decreased ROM to c spine.) . negative: lymphadenopathy, tender midline - RESPIRATORY Respiratory: chest non-tender, decreased breath sounds (bilateral), crackles (bilateral bases.), wheezing. negative: respiratory distress - CARDIOVASCULAR Cardiovascular: JVD, tachycardia, PMI displaced laterally, other (distant heart sounds.). negative: systolic murmur - GASTROINTESTINAL (ABDOMEN) Abdominal Exam: normal bowel sounds, soft, tenderness (epigastric and LLQ), hepatomegaly. negative: guarding, rigid, hernia - MUSCULOSKELETAL Back Exam: vertebral tenderness (L4, L5 and S1.). negative: lordosis, swelling Extremity: non-tender, calf tenderness, tenderness (bilateral SI joints.), other (2 + pitting edema to bilateral lower extremities. calf measurements of 47 cm on right and 45 cm on left. decreased ROM to bilateral lower extremities due to degenerative changes to large joints.). negative: deformity, erythema - SKIN Integumentary: normal color, normal turgor, warm/dry. negative: diaphoresis, ecchymosis, erythema, jaundice, rash - NEUROLOGIC Neurologic: grossly normal, no motor/sensory deficits. negative: aphasia, facial droop - PSYCHIATRIC Psych/Mental Status: normal mood/affect, oriented x 3. negative: anxious - HEART Score HEART Score: History: Highly Suspicious HEART Score: ECG: Significant ST-Deviation HEART Score: Age: > or = 65 Years HEART Score: Risk Factors for Atherosclerotic Disease: 1 or 2 Risk Factors HEART Score: Troponin: 1-3x Normal Limit Total HEART Score:: 8 Progress - PLAN OF CARE/RESULTS Progress/Plan/Lab Results: Vital Signs - 8 hr 12/01/18 13:35 12/01/18 14:27 12/01/18 16:14 Temperature Pulse Rate 88 78 99 H Respiratory Rate 22 17 Blood Pressure 189/91 208/93 O2 Sat by Pulse Oximetry 97 94 L 12/01/18 17:09 12/01/18 17:48 12/01/18 19:43 Temperature Pulse Rate 102 H 79 66 Respiratory Rate 18 11 L Blood Pressure 184/90 197/102 211/107 O2 Sat by Pulse Oximetry 95 97 99 12/01/18 20:06 12/01/18 20:07 Temperature 98.5 F Pulse Rate 67 78 Respiratory Rate 20 23 Blood Pressure 216/95 163/90 O2 Sat by Pulse Oximetry 97 97 Laboratory Results - last 24 hr 12/01/18 12/01/18 12/01/18 13:45 14:00 14:00 WBC 10.61 RBC 4.05 L Hgb 11.7 L Hct 37.9 L MCV 93.6 MCH 28.9 MCHC 30.9 L RDW Std Deviation 13.0 Plt Count 211 MPV 11.4 H Immature Gran % (Auto) 0.3 Neut % (Auto) 54.4 Lymph % (Auto) 33.6 [place] % (Auto) 7.5 Eos % (Auto) 3.8 Baso % (Auto) 0.4 Immature Gran # (Auto) 0.03 Neut # (Auto) 5.78 Lymph # (Auto) 3.56 H [place] # (Auto) 0.80 H Eos # (Auto) 0.40 Baso # (Auto) 0.04 D-Dimer, Quantitative Specimen Type Sample Site pH pCO2 pO2 HCO3 Base Excess Oxyhemoglobin ABG O2 Sat (Calculated) ABG O2 Saturation ABG Carboxyhemoglobin ABG Methemoglobin Stephen Test A-a O2 Difference Total Hemoglobin Lactate Blood Gas Modality FiO2 % Sodium Potassium Chloride Carbon Dioxide Anion Gap BUN Creatinine Estimated GFR/1.73 m2 BUN/Creatinine Ratio Glucose Calculated Osmolality Calcium Total Bilirubin AST ALT Alkaline Phosphatase Creatine Kinase 134 Troponin T Lqg-L-Ismiunahmbl Pept Total Protein Albumin Globulin Albumin/Globulin Ratio Urine Source CLEAN CATCH Urine Color YELLOW Urine Clarity VERY CLOUDY A Urine pH 7.0 Ur Specific [place] 1.005 Urine Protein 2+(100 mg/dL) A Urine Ketones NEGATIVE Urine Blood 3+ A Urine Nitrite NEGATIVE Urine Bilirubin NEGATIVE Urine Urobilinogen NORMAL Urine Microscopic RBC 10-20 A Urine WBC 2+ A Urine Microscopic WBC TNTC A Ur Epithelial Cells <10 Urine Crystals NONE SEEN Urine Bacteria 4+ Urine Casts NONE SEEN Urine Yeast NONE SEEN Urine Glucose NEGATIVE 12/01/18 12/01/18 12/01/18 14:00 14:00 14:00 WBC RBC Hgb Hct MCV MCH MCHC RDW Std Deviation Plt Count MPV Immature Gran % (Auto) Neut % (Auto) Lymph % (Auto) [place] % (Auto) Eos % (Auto) Baso % (Auto) Immature Gran # (Auto) Neut # (Auto) Lymph # (Auto) [place] # (Auto) Eos # (Auto) Baso # (Auto) D-Dimer, Quantitative 1.34 H Specimen Type Sample Site pH pCO2 pO2 HCO3 Base Excess Oxyhemoglobin ABG O2 Sat (Calculated) ABG O2 Saturation ABG Carboxyhemoglobin ABG Methemoglobin Stephen Test A-a O2 Difference Total Hemoglobin Lactate Blood Gas Modality FiO2 % Sodium 139 Potassium 5.6 H Chloride 109 H Carbon Dioxide 18 L Anion Gap 12 BUN 32 H Creatinine 3.0 H Estimated GFR/1.73 m2 20 BUN/Creatinine Ratio 11 Glucose 120 H Calculated Osmolality 286 Calcium 7.9 L Total Bilirubin 0.20 AST 12 ALT 7 L Alkaline Phosphatase 89 Creatine Kinase Troponin T 0.069 Jpe-N-Ritdjfmjlis Pept Total Protein 7.5 Albumin 3.8 Globulin 4.0 Albumin/Globulin Ratio 1.0 Urine Source Urine Color Urine Clarity Urine pH Ur Specific [place] Urine Protein Urine Ketones Urine Blood Urine Nitrite Urine Bilirubin Urine Urobilinogen Urine Microscopic RBC Urine WBC Urine Microscopic WBC Ur Epithelial Cells Urine Crystals Urine Bacteria Urine Casts Urine Yeast Urine Glucose 12/01/18 12/01/18 12/01/18 14:00 14:44 16:12 WBC RBC Hgb Hct MCV MCH MCHC RDW Std Deviation Plt Count MPV Immature Gran % (Auto) Neut % (Auto) Lymph % (Auto) [place] % (Auto) Eos % (Auto) Baso % (Auto) Immature Gran # (Auto) Neut # (Auto) Lymph # (Auto) [place] # (Auto) Eos # (Auto) Baso # (Auto) D-Dimer, Quantitative Specimen Type ARTERIAL Sample Site R RADIAL pH 7.30 L pCO2 38 pO2 77 HCO3 19.3 L Base Excess -7.1 L Oxyhemoglobin 93.9 L ABG O2 Sat (Calculated) 15.8 ABG O2 Saturation 97.1 ABG Carboxyhemoglobin 1.90 ABG Methemoglobin 1.3 Stephen Test YES A-a O2 Difference 25.0 Total Hemoglobin 11.9 Lactate 1.30 Blood Gas Modality ROOM AIR FiO2 % 21.0 Sodium Potassium Chloride Carbon Dioxide Anion Gap BUN Creatinine Estimated GFR/1.73 m2 BUN/Creatinine Ratio Glucose Calculated Osmolality Calcium Total Bilirubin AST ALT Alkaline Phosphatase Creatine Kinase Troponin T 0.102 H Zej-I-Gvbbejxsqee Pept 6 Total Protein Albumin Globulin Albumin/Globulin Ratio Urine Source Urine Color Urine Clarity Urine pH Ur Specific [place] Urine Protein Urine Ketones Urine Blood Urine Nitrite Urine Bilirubin Urine Urobilinogen Urine Microscopic RBC Urine WBC Urine Microscopic WBC Ur Epithelial Cells Urine Crystals Urine Bacteria Urine Casts Urine Yeast Urine Glucose 12/01/18 18:57 WBC RBC Hgb Hct MCV MCH MCHC RDW Std Deviation Plt Count MPV Immature Gran % (Auto) Neut % (Auto) Lymph % (Auto) [place] % (Auto) Eos % (Auto) Baso % (Auto) Immature Gran # (Auto) Neut # (Auto) Lymph # (Auto) [place] # (Auto) Eos # (Auto) Baso # (Auto) D-Dimer, Quantitative Specimen Type Sample Site pH pCO2 pO2 HCO3 Base Excess Oxyhemoglobin ABG O2 Sat (Calculated) ABG O2 Saturation ABG Carboxyhemoglobin ABG Methemoglobin Stephen Test A-a O2 Difference Total Hemoglobin Lactate Blood Gas Modality FiO2 % Sodium Potassium Chloride Carbon Dioxide Anion Gap BUN Creatinine Estimated GFR/1.73 m2 BUN/Creatinine Ratio Glucose Calculated Osmolality Calcium Total Bilirubin AST ALT Alkaline Phosphatase Creatine Kinase Troponin T 0.159 H D Txn-O-Dhqjfhhxgbb Pept Total Protein Albumin Globulin Albumin/Globulin Ratio Urine Source Urine Color Urine Clarity Urine pH Ur Specific [place] Urine Protein Urine Ketones Urine Blood Urine Nitrite Urine Bilirubin Urine Urobilinogen Urine Microscopic RBC Urine WBC Urine Microscopic WBC Ur Epithelial Cells Urine Crystals Urine Bacteria Urine Casts Urine Yeast Urine Glucose Orders Category Date Time Status Admit - [facility] Routine AdmDCTranf 12/01/18 18:34 Active Activity - Up with Assistance ORDERED Care 12/01/18 18:35 Active Cardiac Monitoring DIRECTED Care 12/01/18 13:26 Active DVT/PE Risk Assess/Protocol [QM] ORDERED Care 12/01/18 18:35 Active Intake and Output-Strict ORDERED Care 12/01/18 18:35 Active Resuscitation Status Routine Care 12/01/18 18:04 Ordered Vital Signs Order Q 4-HR ASSESS Care 12/01/18 18:36 Active Z-Document. for Tele Applied ORDERED Care 12/01/18 18:35 Active Renal Diet Diet 12/01/18 18:36 Active CHEST-PORTABLE [RAD] Stat Exams 12/01/18 13:[address] THORAX W/O CONTRAST [CT] Routine Exams 12/01/18 19:05 Completed ABG [RESP] Routine Lab 12/01/18 14:44 Completed ABG [RESP] Routine Lab 12/02/18 06:00 Uncollected BLOOD CULTURE [BLDCUL] Stat Lab 12/01/18 16:39 Ordered CBC WITH DIFF [HEME] DAILY Lab 12/02/18 06:00 Ordered CBC WITH DIFF [HEME] DAILY Lab 12/03/18 06:00 Ordered CBC WITH DIFF [HEME] DAILY Lab 12/04/18 06:00 Ordered CBC WITH DIFF [HEME] DAILY Lab 12/05/18 06:00 Ordered CBC WITH ELECTRONIC DIFF [HEME] Stat Lab 12/01/18 14:00 Completed CK PROFILE [SP CHEM] Stat Lab 12/01/18 14:00 Completed COMPREHENSIVE METABOLIC PANEL [CHEM] Stat Lab 12/01/18 14:00 Completed D-DIMER [COAG] Stat Lab 12/01/18 14:00 Completed PRO B-NATRIURETIC PEPTIDE Stat Lab 12/01/18 14:00 Completed RENAL PROFILE [CHEM] DAILY Lab 12/02/18 06:00 Ordered RENAL PROFILE [CHEM] DAILY Lab 12/03/18 06:00 Ordered RENAL PROFILE [CHEM] DAILY Lab 12/04/18 06:00 Ordered RENAL PROFILE [CHEM] DAILY Lab 12/05/18 06:00 Ordered TROPONIN T Q4H Lab 12/01/18 18:57 Completed TROPONIN T Q4H Lab 12/01/18 22:35 Ordered TROPONIN T Q4H Lab 12/02/18 02:35 Ordered TROPONIN T Stat Lab 12/01/18 14:00 Completed TROPONIN T Stat Lab 12/01/18 16:12 Completed UA NIMS W/REFLEX CULT PL [URINALYSIS] Stat Lab 12/01/18 13:45 Completed URINE CULTURE [RM] Routine Lab 12/01/18 14:30 Ordered 0.9% Sodium Chloride Inj [Ns] 500 ml Med 12/01/18 19:57 Discontinued .ROUTE As directed 0.9% Sodium Chloride Inj [Ns] 500 ml Med 12/01/18 19:58 Active IV 40 mls/hr Acetaminophen [Tylenol] Med 12/01/18 18:35 Active 650 mg PO Q6H PRN PRN Albuterol 2.5MG/Ipratrop 0.5MG [Duoneb (A & A)] Med 12/01/18 13:25 Discontinued 3 ml INH NOW ONE Albuterol 2.5MG/Ipratrop 0.5MG [Duoneb (A & A)] Med 12/01/18 18:43 Active 3 ml INH Q2H PRN PRN Albuterol 2.5MG/Ipratrop 0.5MG [Duoneb (A & A)] Med 12/01/18 19:30 Active 3 ml INH RTQ4H Furosemide [Lasix] Med 12/01/18 13:24 Discontinued 40 mg IV NOW ONE Heparin Med 12/01/18 19:00 Active 5,000 unit SUBQ Q12H Hydralazine [Apresoline] Med 12/01/18 17:23 Discontinued 10 mg IV NOW ONE Labetalol Med 12/01/18 13:41 Discontinued 100 mg .ROUTE .STK-MED ONE Labetalol Med 12/01/18 13:24 Discontinued 20 mg IV NOW ONE Nitroglycerin 50 mg/D5w Med 12/01/18 18:47 Discontinued 50 mg in 250 ml .ROUTE As directed Nitroglycerin 50 mg/D5w Med 12/01/18 18:00 Active 50 mg in 250 ml IV 10 microgm/min Omeprazole [Prilosec] Med 12/02/18 07:00 Active 40 mg PO DAILY@0700 Ondansetron [Zofran] Med 12/01/18 18:35 Active 4 mg IV Q4H PRN PRN Piperacillin/Tazobactam [Zosyn] 2.25 gm Med 12/01/18 15:34 Discontinued 0.9% Sodium Chloride Inj [Ns] 50 ml IV NOW Piperacillin/Tazobactam [Zosyn] 2.25 gm Med 12/01/18 18:30 Active 0.9% Sodium Chloride Inj [Ns] 50 ml IV Q6H Sodium Polystyrene [Kayexalate] Med 12/01/18 18:40 Discontinued 30 gm PO NOW ONE Aerosol Treatments Routine Oth 12/01/18 13:25 Completed Aerosol Treatments Routine Oth 12/01/18 18:43 Active Aerosol Treatments Stat Oth 12/01/18 13:25 Completed Aerosol Treatments Stat Oth 12/01/18 18:43 Active Telemetry [OM.EQ] Routine Oth 12/01/18 18:35 Active EKG [EKG] Stat Ther 12/01/18 14:36 Draft Echo Spec/Color Doppler Routine Ther 12/01/18 18:35 Ordered Venous U/S Bilateral Legs Stat Ther 12/01/18 14:45 Completed Transfer/Admit Order [TRANSFER] Routine Transfer 12/01/18 18:03 Ordered Result Diagrams: 12/01/18 14:00 12/01/18 14:00 - REASSESSMENT Reassessment #1 Status: improving (W/O CP /P AT THIS TIME) - EKG 1 Time of EKG reading by physician:: 13:11 EKG Read and Signed by:: Walter Duvall EKG Interpretation (*Must complete 3 of following elements*): Abnormal (ST & T wave abnormality, consider inferolateral ischemia) Rate: 98 Rhythm: normal sinus rhythm [place] Interval: normal Comments: possible left atrial enlargement; 2 Time of EKG reading by physician:: 14:58 EKG Read and Signed by:: Walter Duvall EKG Interpretation (*Must complete 3 of following elements*): Abnormal (ST & T wave abnormality, consider inferolateral ischemia) Rate: 77 Rhythm: normal sinus rhythm FL Interval: normal Comments: possible left atrial enlargement; - XRAY 1 XRAY Study: Chest Impression: See EMR Report ( EXAM: CHEST-PORTABLE HISTORY: DYSPNEA TECHNIQUE: Portable chest single view COMPARISON: 03/24/2017 FINDINGS: The lungs are well expanded. The heart is mildly enlarged. The vessels are not distended. There are no infiltrates. No effusion identified. Prominent arthritis to each shoulder. IMPRESSION: Cardiomegaly, but no definite congestive failure. Electronically signed by Brandon Childs 12/01/2018 1:53 PM 12/01/18 1353 Interpreting Physician: Brandon Childs MD Dictated Date/Time: 12/01/18 1352 cc: Walter Duvall DO; Hebert Doe MD) - ULTRASOUND (By Radiology) 1 US Study: Lower Ext (bilateral) Impression: Normal (per US tech), See EMR Report Departure - Departure Date of Disposition Decision: 12/01/18 Time of Disposition Decision: 17:52 DIAGNOSIS: Hypertensive crisis without congestive heart failure, Hyperkalemia, Edema, peripheral Renal failure (ARF), acute on chronic Qualifiers: Acute renal failure type: unspecified Chronic kidney disease stage: stage 3 (moderate) Qualified Code(s): N17.9 - Acute kidney failure, unspecified; N18.3 - Chronic kidney disease, stage 3 (moderate) Chest pain due to myocardial ischemia Qualifiers: Ischemic chest pain type: stable angina pectoris Qualified Code(s): I20.8 - Other forms of angina pectoris UTI (urinary tract infection) Qualifiers: Urinary tract infection type: acute cystitis Disposition: ADMITTED INPATIENT 09 Certified Medical Emergency: Emergent Condition: Stable - Critical Care Note This patient required my direct & personal management of CC.: Yes Total Time (mins): 120 (EVAL/TREATMENT/ADMISSION) Critical Care Statement: This patient required my direct personal management to treat or rule out processes, the absence of which, could potentiallly result in sudden, clinically significant life or limb threatening deterioration. Attestation - Physician/ HARJINDER Attestation Patient care was provided by Advanced Practice Provider:: No The physician spent face to face time with patient:: Yes Advanced Practice Provider documentation review:: Supervising physician onsite and consulted in the evaluation and care of this patient. The physician did have a face to face encounter with the patient. This chart was documented by the indicated scribe, (Samantha Carr Scribe) and accurately reflects the services I performed and decisions made by me, Wlater Duvall DO, as attested by the provider's signature.
[2018-12-01] MEDS: HEPARIN SUBQ SCH (19:51)
[2018-12-01] MEDS: NITROGLYCERIN 50 MG/D5W 50 MG/250 ML IV.SOLN IV SCH ×4 (19:53→22:04)
--- NOTE | 2018-12-01 19:53 | Diag Imaging Result Doc PS360 ---
EXAM: CT THORAX W/O CONTRAST - 12/01/2018 HISTORY: chest pain TECHNIQUE: CT thorax without contrast. No contrast administered per request the referring provider. COMPARISON: 11/01/2013 CT thorax with contrast FINDINGS: Lungs appear clear. There is no pleural effusion or pneumothorax identified. There is stable borderline cardiomegaly. There are calcified mediastinal lymph nodes from old granulomatous disease similar to prior. There are mildly prominent bilateral axillary lymph nodes similar to prior. Included sections of upper abdomen show calcified granulomas in the liver and spleen from old granulomatous disease similar to prior. There is thoracic spondylosis noted. IMPRESSION: No discrete evidence of acute disease. This exam was performed using automated exposure control, adjustment of mA or kV according to patient size, and/or use of iterative reconstruction technique. Electronically signed by Madhu Clinton 12/01/2018 7:51 PM
[2018-12-01] MEDS ORDERED: NS 500 ML ONE (19:57)
[2018-12-01] MEDS ORDERED: NS 500 ML IV ONE (19:58)
[2018-12-01] MEDS: DUONEB (A & A) INH SCH ×2 (20:10→23:09)
[2018-12-01] MEDS: ZOSYN 2.25 GM in NS 50 ML IV SCH (20:10)
--- NOTE | 2018-12-01 22:06 | ED EKG INTERP ---
This chart was entered by Petrona Jimenez Scribe, acting as scribe for Ranjith Almanza MD. EKG Interpretation - EKG Time of EKG reading by physician:: 20:36 EKG Read and Signed by:: Ranjith Almanza EKG Interpretation (*Must complete 3 of following elements*): Abnormal Rate: 84 Rhythm: NSR [place]: normal QRS: other (possible L atrial enlargement) [place] Interval: normal ST Wave: non-specific ST changes (consider inferolateral ischemia) Attestation - Physician/ HARJINDER Attestation Patient care was provided by Advanced Practice Provider:: No The physician spent face to face time with patient:: Yes Advanced Practice Provider documentation review:: Supervising physician onsite and consulted in the evaluation and care of this patient. The physician did have a face to face encounter with the patient. This chart was documented by the indicated scribe, (Petrona Jimenez Scribe) and accurately reflects the services I performed and decisions made by me, Ranjith Almanza MD, as attested by the provider's signature.
[2018-12-01] MEDS ORDERED: DUONEB (A & A) INH SCH (23:54)
[2018-12-01] MEDS ORDERED: NS 1,000 ML IV ONE (23:54)
[2018-12-01] MEDS ORDERED: CATAPRES PO SCH (23:54)
[2018-12-02] MEDS: ZOSYN 2.25 GM in NS 50 ML IV SCH (01:34)
[2018-12-02] MEDS ORDERED: ROCEPHIN 1 GM in NS 50 ML IV SCH (02:30)
[2018-12-02] MEDS ORDERED: ASPIRIN PO ONE (02:41)
[2018-12-02] MEDS ORDERED: APRESOLINE PO SCH ×2 (02:45→09:00)
--- NOTE | 2018-12-02 03:16 | HISTORY AND PHYSICAL ---
ADDENDUM The patient is an 82-year-old male with past medical history of hypertensive heart and kidney disease. He comes in primarily because of chest pain today and states that he also wants to get imaging studies done of his chest to see if he has asbestosis, which he believes he has been exposed to. Admits to having chronic history of dyspnea, which he thinks may be due to asbestosis. His blood pressure was greater than 200 systolic, and he was started on nitroglycerin and labetalol at [facility], where he was initially seen. However, his troponin levels were mildly positive and continued to slowly increase and as a result of that, he was transferred here for cardiology followup. Currently, the patient is chest pain-free. He says he only sees physicians when he needs to see them, when he has any symptoms, and he does admit that he is not compliant with his medication. Otherwise, no other cardiorespiratory complaints. PHYSICAL EXAMINATION: VITAL SIGNS: His blood pressure at this time is 158/108 heart rate 93, respirations 19, temp is 98.3. HEENT: Notable for periorbital edema. No JVD. CARDIORESPIRATORY: Normal. 1+ pitting edema. LABS AND IMAGING: The patient's lab work does confirm that he does have BUN and creatinine of 332 and 3.0, consistent with CKD stage 4. His urinalysis, however, confirms a urinary tract infection even though he is asymptomatic, per the patient. CT scan her chest was done and did not show any evidence of findings suggestive of asbestosis, although some granulomas were noted, ? beryllium exposure. Doppler studies were done, and these were also negative. For now, patient will be started on hydralazine. Continue with nitroglycerin and Norvasc for blood pressure control. Echocardiogram will be ordered to assess LV function. The patient would benefit from both Cardiology and Nephrology consultations. Goal will be to wean the patient off IV nitroglycerin, probably transition to p.o. long-acting nitroglycerin. cc: Renae Mike MD
[2018-12-02] MEDS: LASIX IV SCH ×2 (04:40→15:09)
[2018-12-02 05:07] LABS: ALLEN TEST YES; BE -6.1 mmoll (-3.0-3.0); BLOOD TYPE ARTERIAL; HCO3-(ACT) 20.2 mmoll (20.0-26.0); O2(CT) 14.2 mL/dL (15.0-23.0); O2HB 96.4 % (95.0-99.0); PCO2(98.6) 34 mmHg (35-45); PO2(98.6) 98 mmHg (60-100); SAMPLE BLOOD; SAO2 98.5 % (95.0-100.0); THB 10.4 g/dL (11.5-17.4); pH(98.6) 7.35 (7.35-7.45)
[2018-12-02] MEDS: NORVASC PO SCH ×2 (05:09→20:01)
[2018-12-02 05:13] LABS: MODALITY ROOM AIR
[2018-12-02 06:16] LABS: BASO# 0.03 X1000 (0.0-0.2); BASO% 0.3 % (0.0-0.8); HEMATOCRIT 32.8 % (42.0-52.0); HEMOGLOBIN 10.1 g/dL (14.0-18.0); IMM GRAN# 0.03 X1000 (0.0-0.04); IMM GRAN% 0.3 % (0.0-0.5); LYMPH# 2.69 X1000 (1.2-3.4); LYMPH% 25.9 % (20.5-51.1); MCH 28.4 PG (27-31); MCHC 30.8 g/dL (33-37); MCV 92.1 FL (81-99); MONO# 0.99 X1000 (0.11-0.59); MONO% 9.5 % (1.7-9.3); MPV 11.7 FL (7.4-10.4); NEUT# 6.56 X1000 (1.4-6.5); PLT 214 X1000 (130-400); RBC 3.56 XMIL (4.7-6.1)
[2018-12-02] MEDS: HEPARIN SUBQ SCH ×2 (06:18→18:41)
[2018-12-02] MEDS: PRILOSEC PO SCH (06:19)
[2018-12-02 07:14] LABS: ALBUMIN 3.1 g/dL (3.5-5.0); CALCIUM 7.9 mg/dL (8.8-10.2); PHOSPHORUS 3.6 mg/dL (2.7-4.5)
--- NOTE | 2018-12-02 07:57 | EKG Report ---
Test Performed on : 12/01/2018 10:14:23 PM Test Reason : Elevated Troponin Blood Pressure : / mmHG Vent. Rate : 093 BPM Atrial Rate : 093 BPM P-R Int : 168 ms QRS Dur : 086 ms QT Int : 360 ms P-R-T Axes : 050 015 126 degrees QTc Int : 447 ms Normal sinus rhythm. Possible Left atrial enlargement ST & T wave abnormality, consider lateral ischemia Abnormal ECG When compared with ECG of 01-DEC-2018 20:36, (Unconfirmed) No significant change was found Confirmed by Ranjith Almanza MD ([id number]) on 12/09/2018 10:32:49 AM
--- NOTE | 2018-12-02 08:01 | EKG Report ---
Test Performed on : 12/02/2018 07:46:39 AM Test Reason : chest pain,elveated troponin Blood Pressure : / mmHG Vent. Rate : 078 BPM Atrial Rate : 078 BPM P-R Int : 180 ms QRS Dur : 088 ms QT Int : 368 ms P-R-T Axes : 057 041 169 degrees QTc Int : 419 ms Normal sinus rhythm. Possible Left atrial enlargement ST & T wave abnormality, consider inferolateral ischemia Abnormal ECG When compared with ECG of 01-DEC-2018 22:14, (Unconfirmed) Inverted T waves have replaced nonspecific T wave abnormality in Inferior leads Confirmed by Easton CEJA, Gamal Resendiz ([id number]) on 12/03/2018 9:05:48 AM
[2018-12-02] MEDS ORDERED: ALBUTEROL NEB INH ONE (09:13)
[2018-12-02] MEDS ORDERED: SODIUM BICARBONATE 8.4% IV PUSH ONE (09:14)
[2018-12-02 09:15] LABS: INR 1.02; PROTIME 14.2 Seconds (11.0-16.0)
[2018-12-02] MEDS ORDERED: D50W SYRINGE IV ONE (09:15)
[2018-12-02] MEDS ORDERED: HUMULIN R IV ONE (09:15)
[2018-12-02 09:16] LABS: PTT 32.3 Seconds (22.3-41.8)
[2018-12-02] MEDS ORDERED: KAYEXALATE PO ONE (09:16)
--- NOTE | 2018-12-02 09:16 | EKG Report ---
Test Performed on : 12/01/2018 1:11:57 PM Test Reason : ER Blood Pressure : / mmHG Vent. Rate : 098 BPM Atrial Rate : 098 BPM P-R Int : 176 ms QRS Dur : 088 ms QT Int : 354 ms P-R-T Axes : 051 023 170 degrees QTc Int : 451 ms Normal sinus rhythm. Possible Left atrial enlargement ST & T wave abnormality, consider inferolateral ischemia Abnormal ECG When compared with ECG of 23-MAR-2017 01:53, Vent. rate has increased BY 45 BPM Unconfirmed Result
--- NOTE | 2018-12-02 09:36 | EKG Report ---
Test Performed on : 12/01/2018 8:36:39 PM Test Reason : CP Blood Pressure : / mmHG Vent. Rate : 084 BPM Atrial Rate : 084 BPM P-R Int : 178 ms QRS Dur : 078 ms QT Int : 384 ms P-R-T Axes : 054 035 154 degrees QTc Int : 453 ms Normal sinus rhythm. Possible Left atrial enlargement ST & T wave abnormality, consider inferolateral ischemia Abnormal ECG When compared with ECG of 01-DEC-2018 14:58, (Unconfirmed) No significant change was found Confirmed by Ranjith Almanza MD ([id number]) on 12/09/2018 10:33:01 AM
--- NOTE | 2018-12-02 09:46 | HISTORY AND PHYSICAL ---
PRIMARY CARE PROVIDER: Dr. Hebert Doe, though the patient states he has not seen him in several months. CHIEF COMPLAINT: Predominantly chest pain but the patient also reports shortness of breath. HISTORY OF PRESENT ILLNESS: Mr. Torres is an 82-year-old, male with a past medical history of hypertensive heart and kidney disease. He presented to the ER today for chest pain and shortness of breath. The patient states that he has been chronically short of breath for quite some time. 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 He believes that he has been exposed to this and this is the cause of some of his chronic history of dyspnea. He states that over the past few days, his shortness of breath did worsen. He also reported that yesterday, he began having chest pain that was tight in nature. It was in his left chest and nonradiating. He did report that this came on at rest and did worsen with exertion. Other than the dyspnea, he denied any other symptoms associated with his chest pain. The patient also reports chronic edema in his bilateral lower extremities, though states this is actually better than what it normally is at this time. He denies any headache, dizziness, cough, abdominal pain, or worsening abdominal swelling. He denies any nausea, vomiting, diarrhea, or constipation. He denies any dysuria. Other than the edema as previously mentioned in his bilateral lower extremities, he denies any other pain, numbness, or tingling. The patient does state that he has not seen Dr. Hebert Doe in several months. He reports that he has never seen a medical front desk coordinator or project manager finance outpatient, only while he has been in the hospital what I assume was February 2018 which was his previous admission at our facility. He states that he has been noncompliant with medications and has not taken his previously prescribed clonidine and hydralazine in a few months. Upon evaluation at [facility] initially in the ER, the patient did have initial vital signs of temperature 98.3 degrees, heart rate 105, respirations 20, blood pressure is 235/102, and oxygen saturation was 98% on room air. They did attempt to improve his blood pressure initially with medications of Apresoline, and labetalol IV push, though did ultimately place the patient on a nitroglycerin drip. Chemistry did reveal some hyperkalemia with potassium of 5.6. He also did have elevated creatinine of 3.0 with what looks to be a previous baseline of 2.2. He has a GFR of 20. He also did have elevated troponins which did increase with repeat draws, though looking at the patient's EKGs when compared with previous from his admission in 2017, there does not appear to be any acute EKG changes at this time. He does have findings of a urinary tract infection. The patient is asymptomatic. His D-dimer was elevated at 1.34. They did perform a CT of the thorax without contrast which showed no discrete evidence of acute disease. They did perform a venous ultrasound of bilateral lower extremities which showed no evidence of deep venous thrombosis in either lower extremity. Given that the patient's enzymes were increasing and that he would benefit from a nephrology consult as well, he was transferred to [facility] for admission. REVIEW OF SYSTEMS: A 14 point review of systems was conducted with the patient. All were negative except for pertinent positives mentioned above the HPI. PAST MEDICAL HISTORY: 1. Hypertensive heart disease. 2. Chronic kidney disease. PAST SURGICAL HISTORY: The patient denied any previous surgeries. FAMILY HISTORY: His mother had a history of diabetes mellitus. He does not know of his father having any medical problems. He does have 3 sisters who had diabetes mellitus and a brother who had lung disease, though was a smoker. SOCIAL HISTORY: The patient lives alone but does have family close by that can help him when needed. He denies any past or present tobacco, alcohol, or illicit drug use. 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 The patient does, at this time, believe that he has lung disease secondary to asbestos exposure. ALLERGIES: The patient has no known allergies. HOME MEDICATIONS: The patient states he has not taken his previously prescribed medicines in a few months ago, though he previously took clonidine and hydralazine. DIAGNOSTIC DATA/LABORATORY RESULTS: White blood cell count 10.61, hemoglobin 11.5, hematocrit 37.9, platelet count is 211,000. D-dimer 1.34. Sodium 139, potassium 5.6, chloride 109, serum bicarb is 18, BUN 32, creatinine 3.0, with a GFR of 20, glucose 120, calcium 7.9. Liver function tests within normal limits. CK 134, troponin 0.069 with subsequent repeats that were elevated, lastly being 0.159. ProBNP is 6. ABGs: PH 7.3, pCO2 38, PO2 77, HC03 is 19.3, with a base excess of -7.1, oxyhemoglobin of 93.9, and O2 saturation of 97.1. This was drawn on room air. Urinalysis obtained via clean catch was positive for protein, blood, 2+ white blood cells, and too numerous to count microscopic white blood cells, and 4+ bacteria. It was negative for ketones, nitrites, and yeast. Chest x-ray showed cardiomegaly but no definite congestive heart failure. CT of thorax without contrast showed no discrete evidence of acute disease. There were mildly prominent bilateral axillary lymph nodes, similar to prior, included in sections of the upper abdomen. It showed calcified granulomas in the liver and spleen from other granulomatous disease, similar to prior. There were also calcified mediastinal lymph nodes from old granulomatous disease, similar to prior as well. EKG showed a normal sinus rhythm with possible left atrial enlargement. No ST and T-wave abnormality. At a rate of 77 with a QTc of 439, though when compared to EKG in February of 2017, there did not appear to be any acute ST changes noted. Bilateral lower extremity venous ultrasound showed no evidence of deep venous thrombosis in either lower extremity. PHYSICAL EXAMINATION: VITAL SIGNS: Temperature 98.9 degrees, heart rate 91, respirations 22, blood pressure is 201/96, with an oxygen saturation of 97%. GENERAL: Mr. Torres is an 82-year-old, male who was resting in the inpatient bed. He was in no acute distress. He was awake, alert, and able to answer questions appropriately. HEENT: Head is atraumatic, normocephalic. Pupils are equal, round, reactive to light, were 3 mm bilaterally and brisk. Oral mucosa is moist. Oropharynx is clear. NECK: Supple. Trachea midline. No overt JVD noted. CARDIOVASCULAR: Patient has S1-S2 present. No murmurs, gallops, rubs appreciated, with a regular rate and rhythm. PULMONARY: Patient has symmetrical chest expansion bilaterally. Lung sounds are clear to auscultation in bilateral full lugo. ABDOMEN: Slightly protuberant, though was soft, nontender upon palpation. Bowel sounds are present in all 4 quadrants, were normoactive. EXTREMITIES: No cyanosis noted. The patient does have edema noted to bilateral lower extremities from the knees down. This is approximately 1 to 2+ pitting edema noted. Pulse, motor, and sensory are intact in all extremities. Radial and pedal pulses were 2+ bilaterally. INTEGUMENTARY: The patient's skin color is normal for his race. It is dry and intact. NEUROLOGICAL: The patient is alert and oriented to person, place, time, and situation. He is able to move all extremities. There are no focal neurological deficits noted at this time. ASSESSMENT: 1. Hypertensive urgency. For this, the patient was previously placed on a nitroglycerin drip at [facility]. We are going to go ahead and implement oral antihypertensives now of hydralazine and Norvasc. We will try to wean him off the nitroglycerin drip. His blood pressure upon arrival to [facility] looked as though it had increased some from the last few previous readings before transfer, though it is beginning to come back down with readings in the 170s and high 160s at this time. We will continue to monitor closely. 2. Chest pain. At this time, the patient is not reporting any active chest pain. He states this subsided in the emergency room at [facility] after being given medications. He states he has not had any further episodes. The patient does not have any acute electrocardiogram changes. He does have troponins that are elevated and have increased in subsequent draws. We will continue with further orders of serial cardiac enzymes. Repeat electrocardiogram as well as an echocardiogram. He did receive an aspirin upon arrival to [facility]. We have placed a cardiology consult Dr. Rubio, and we will await their evaluation and further recommendations for management. 3. Dyspnea. The patient states this has been ongoing for quite some time, though over the last few days, he states this did worsen. CT of the thorax without contrast did not show any acute findings, though his D-dimer was slightly elevated at 1.34. According to the Wells score for pulmonary embolism, his risk score was 1.5 which gives him a low probability for pulmonary embolism. The patient is not able to receive a contrasted study due to his renal function, though if further suspicion exists, possibly a V/Q scan could be performed. As previously mentioned, his venous Doppler of bilateral lower extremities was negative for any deep venous thromboses. At this time, the patient does not appear to be in any acute distress. He is maintaining adequate oxygen saturation on room air. We will continue to follow. 4. Acute on chronic kidney disease. The patient previously had a baseline of what appeared to be a creatinine of 2.2. This is increased at this time at 3. He also does have some hyperkalemia noted as well. He was given Lasix as well as Kayexalate in the emergency room at [facility] previously. We are going to repeat some labs this morning to re- evaluate his potassium level as well as renal function. We have placed a consult with Dr. Alcaraz. We will await his evaluation and further recommendations for management. We will avoid nephrotoxic medications and renally dose medicines as necessary. 5. Urinary tract infection. The patient is asymptomatic, though given his acute kidney injury, we will go ahead and place him with coverage of Rocephin 1 g intravenous every 24 hours. We have placed orders for a urine culture and we are awaiting those results at this time. 6. Deep vein thrombosis prophylaxis will be provided with heparin 5000 units subcutaneously every 12 hours. Further orders and recommendations pending hospital course, diagnostic studies, and physician evaluation. Dictated by GWENDOLYN Allen for Renae Mike MD cc: Renae Mike [facility]
[2018-12-02 09:52] LABS: CK INDEX 4.2 (0.0-2.5); CK-MB 8.67 ng/mL (0.0-5.0)
[2018-12-02] MEDS ORDERED: LABETALOL IV PRN (10:39)
--- NOTE | 2018-12-02 11:32 | EKG Report ---
Test Performed on : 12/02/2018 09:43:39 AM Test Reason : TACHYCARDIA Blood Pressure : / mmHG Vent. Rate : 110 BPM Atrial Rate : 110 BPM P-R Int : 164 ms QRS Dur : 090 ms QT Int : 378 ms P-R-T Axes : 054 023 130 degrees QTc Int : 511 ms Sinus tachycardia. Possible Left atrial enlargement Marked ST abnormality, possible inferolateral subendocardial injury Abnormal ECG When compared with ECG of 02-DEC-2018 07:46, (Unconfirmed) ST now depressed in Anterior leads T wave inversion no longer evident in Inferior leads QT has lengthened Confirmed by Easton CEJA, Gamal Resendiz ([id number]) on 12/03/2018 9:05:56 AM
[2018-12-02] MEDS ORDERED: LOPRESSOR PO SCH (11:45)
[2018-12-02] MEDS: APRESOLINE PO SCH ×2 (12:16→18:37)
--- NOTE | 2018-12-02 12:21 | CARDIOLOGY CONSULTATION ---
DATE: 12/02/2018 REASON FOR CONSULTATION: Cardiology was consulted for chest pain, abnormal cardiac enzymes, has accelerated hypertension, chronic venous insufficiency. HISTORY OF PRESENT ILLNESS: Mr. Torres is an 82-year-old, Afro-Malawian gentleman, who has been noncompliant with his medications. He has not been taking any medicines for the last 2 to 3 months. He had been diagnosed to have asbestosis many years back. He comes with complaints of having chest pain, which he describes as tightness in his upper chest. However, this has been going off and on for the last 3 to 4 months. He initially attributed his chest pain to asbestosis, and he says he ran out of his medications. For the last few months, he has not been taking his medications. Again, as far as history is concerned, he says he is not sure as to how many months he has not been taking his medicines. Does not complain of palpitations. When he came to the emergency room, he was having shortness of breath as well. Denies any palpitations denies syncope. When he came in, he was noted to have a blood pressure of 235/102, was given labetalol, Apresoline, and started on IV nitroglycerin drip. He has hyperkalemia with potassium of 6, BUN was elevated with a creatinine of 3.0, proBNP was 6. At the time of my examination, patient does not complain of any chest pain. REVIEW OF SYSTEM: General: A 14-point review of systems was done. GI system: There is no history of nausea. There is no vomiting. There is no history of hematemesis or melena. Central nervous system: No focal weakness to suggest a CVA or TIA. system: There is no dysuria or hematuria. PAST MEDICAL HISTORY: 1. Hypertension. 2. Chronic renal insufficiency. 3. History of asbestosis. PAST SURGICAL HISTORY: No significant surgery in the past. SOCIAL HISTORY: Patient lives alone. Has family. There is no history of alcohol abuse. Does not smoke. HOME MEDICATIONS: The patient has not been taking any medications in the last 2 to 3 months. PHYSICAL EXAMINATION: Vital Signs: On examination, currently his blood pressure was 175/67. First and second heart sounds were heard. There was no murmur. Respiratory System: Normal air entry. There are no crepitations. Abdomen: Soft, nontender. There was no guarding or rigidity. Bowel sounds were heard. Extremities: Examination of his extremities revealed bilateral pedal edema, worse on the right than left. LABORATORY EXAMINATION: Revealed sodium 139, potassium 6.0. BUN 34, creatinine 3.0. Cardiac enzymes: Troponin 0.243, 0.208. CK-MB of 8.67. IMAGING STUDIES: 1. Chest CT revealed cardiomegaly, calcified granuloma. 2. EKG revealed normal sinus rhythm, left ventricular hypertrophy with nonspecific ST-T changes. ASSESSMENT AND PLAN: Mr. Francisco J Torres is an 82-year-old, Afro-[place]ian gentleman with history of hypertension, chronic renal insufficiency. Has been noncompliant with medications. Comes in with complaints of chest pain and shortness of breath and, as noted, to have accelerated hypertension. We will make the following medication changes: 1. He has not been taking his medicines for at least 2 to 3 months. We will increase his hydralazine to 100 mg 3 times a day and add beta-blockers 50 mg twice a day. In addition to aspirin 81 mg a day, he has also been started on Norvasc 5 mg twice a day. Would recommend continuing the same. We will discontinue the IV nitroglycerin drip. We will get an echocardiogram to assess cardiac and valvular function. We will get serial cardiac enzymes as far as cardiac enzymes are abnormal; however, he has chronic renal insufficiency and accelerated hypertension. This could be related to the renal insufficiency as well. Thank you for the consult. We will follow hospital course. cc: Quique Teixeira MD
[2018-12-02 12:27] LABS: CALCIUM 8.4 mg/dL (8.8-10.2); CREATININE 3.2 mg/dL (0.7-1.2); POTASSIUM 4.8 mmol/L (3.5-5.1)
--- NOTE | 2018-12-02 13:31 | PROGRESS NOTE ---
DATE: 12/02/2018 SUBJECTIVE: Patient has no major complaints. OBJECTIVE: Blood pressure 178/98, heart rate 96, respiratory rate of 22, temperature 99.1 degrees, 98% on room air. Cardiovascular: Regular rate and rhythm. Pulmonary: Bilateral breath sounds clear to auscultation. GI: Soft, nontender, nondistended. Bowel sounds were positive. Laboratory Data: White count 10, hemoglobin and hematocrit 10 and 32, platelets 214,000. PH 7.35, pCO2 34, PaO2 98. BUN and creatinine of 34 and 3.2. Troponin is up to 0.208. PROBLEM LIST: 1. Malignant hypertension with elevated troponin. We are adjusting his antihypertensives. He is on Norvasc. Cardiology beat me to it but they put him on Lopressor and then hydralazine, and he is getting Lasix for diuresis. 2. Pulmonary edema in the setting of renal insufficiency. We will continue diuretics and follow closely. Unable to get a Poe due to prostate issues. 3. Elevated troponins which may be related to demand ischemia, renal failure versus true coronary artery disease. Cardiology is following. He has got renal insufficiency which will make intervention and catheterization difficult. He is also noncompliant with his medications so echocardiogram will be obtained, noninvasive imaging per cardiology. 4. Putative urinary tract infection. He is on Rocephin. We will continue that for the time- being. 5. Acute on chronic renal failure, which his kidney function right now is at stage IV. We will continue to monitor. Nephrology actually has already been consulted. Waiting on their input. Because of urinary retention issues, we are going to get an opinion from urology as well. cc: Magdy Long MD
[2018-12-02] MEDS ORDERED: XYLOCAINE 2% VISCOUS MISC ONE (14:03)
[2018-12-02] MEDS ORDERED: LOPRESSOR PO ONE (14:07)
[2018-12-02] MEDS ORDERED: XYLOCAINE 2% JELLY UROJECT TOP ONE (14:12)
[2018-12-02] MEDS: TYLENOL PO PRN (15:18)
[2018-12-02] MEDS ORDERED: STERILE WATER INJ. ONE (15:48)
[2018-12-02] MEDS ORDERED: DIPRIVAN 1% ONE (16:10)
[2018-12-02] MEDS ORDERED: VANCOMYCIN IV PER PHARMACY MISC SCH (16:15)
[2018-12-02] MEDS ORDERED: FENTANYL ONE (16:38)
[2018-12-02] MEDS: MAXIPIME 1 GM in NS 50 ML IV SCH (16:50)
[2018-12-02 17:30] LABS: CK INDEX 3.1 (0.0-2.5); CK-MB 8.98 ng/mL (0.0-5.0)
[2018-12-02] MEDS ORDERED: DILAUDID ONE (17:58)
[2018-12-02] MEDS ORDERED: DECADRON ONE (18:37)
[2018-12-02] MEDS ORDERED: ZOFRAN ONE (18:37)
[2018-12-02 18:43] LABS: URINE SOURCE CATH
[2018-12-02 18:51] LABS: BILIRUBIN URINE NEGATIVE (NEGATIVE); BLOOD URINE MODERATE (NEGATIVE); COLOR ORANGE; GLUCOSE URINE NEGATIVE (NEGATIVE); KETONE URINE NEGATIVE (NEGATIVE); LEUKOCYTES URINE LARGE (NEGATIVE); NITRITE URINE NEGATIVE (NEGATIVE); PH URINE 6.5; PROTEIN URINE 30 mg/dL (NEGATIVE); TURBIDITY URINE TURBID (CLEAR); UROBILINOGEN URINE NORMAL (NORMAL)
--- NOTE | 2018-12-02 18:51 | NEPHROLOGY CONSULTATION ---
DATE: 12/02/2018 REASON FOR CONSULTATION: Chronic kidney disease. HISTORY OF PRESENT ILLNESS: Mr. Torres is an 82-year-old man with known chronic kidney disease. Baseline creatinine approximately 2.5 in 2017. He has not seen nephrology as an outpatient. He states he went to the emergency room because of left-sided chest discomfort and shortness of breath that he attributes to asbestosis. 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 Ultimately, he went to the ER to have x-rayed, again stating he had chest discomfort. He was evaluated and examined and ultimately admitted to the hospital. He required ICU care because his blood pressure was markedly elevated on admission. He was treated with Lopressor and hydralazine with improvement. In this context, his creatinine was elevated at 3.2. He had no thrombocytopenia. He does have anemia, but no other findings consistent with microangiopathic hemolytic anemia. LVH has not been checked. He is feeling well. Shortness of breath is improved. PAST MEDICAL HISTORY: As above. HOME MEDICATIONS: Include hydralazine, clonidine. ALLERGIES: None. SOCIAL HISTORY: Denies current alcohol or tobacco. Lives alone. FAMILY HISTORY: Otherwise noncontributory. REVIEW OF SYSTEMS: Noncontributory. PHYSICAL EXAMINATION: Vital Signs: Blood pressure 189/73, heart rate 98, respiration 18, afebrile. General: Elderly man, in no acute distress. Skin: Warm and dry. HEENT: Conjunctivae are pink. Pupils are equal. Oropharynx is clear. Tongue is somewhat enlarged. Neck: Supple. Trachea is midline. Neck veins are not appreciated. No hepatojugular reflux. Heart: Regular. PMI is nondisplaced. Lungs: Have equal breath sounds. A few scattered crackles. Abdomen: Soft, nontender. Bowel sounds present. Extremities: Minimal edema. No clubbing or cyanosis. IMPRESSION AND PLAN: Kidney failure, likely chronic kidney disease. We will have him undergo a renal ultrasound. Urine electrolytes and urine protein will be repeated. He did have blood and protein and white cells and bacteriuria on his initial urine. Otherwise, we will check LDH. cc: Lopez Alcaraz MD
[2018-12-02 18:52] LABS: UR EPITHELIAL CELLS >10 /HPF (<10); URINE BACTERIA NEGATIVE /HPF; URINE RBC 20-40 /HPF (<10); URINE WBC TNTC /HPF (<10)
[2018-12-02 18:57] LABS: URINE CASTS NONE SEEN; URINE YEAST NONE SEEN
[2018-12-02 19:09] LABS: UR CREAT RANDOM 30.6 mg/dL (14-26); UR PROT RANDOM 69.8 mg/dL
[2018-12-02] MEDS ORDERED: VANCOMYCIN 2,000 MG in NS 500 ML IV ONE (20:00)
[2018-12-02] MEDS: LOPRESSOR PO SCH (20:00)
--- NOTE | 2018-12-02 20:18 | CONSULTATION ---
DATE OF CONSULTATION: 12/02/2018 ATTENDING PHYSICIAN: Jacquelin. REFERRING PHYSICIAN: Jaceyist. HISTORY OF PRESENT ILLNESS: This 82-year-old male was admitted with chest pains and increasing shortness of breath. He states he has a history of exposure to asbestos. The patient has accelerated hypertension and is being monitored in the intensive care unit. He had significant peripheral edema, and Lasix was started. His bladder scans showed residuals of 500 to 1000 mL. Several attempts were made by the ICU staff to place a Poe catheter without success. PAST MEDICAL HISTORY: Hypertension, chronic kidney disease, history of congestive heart failure, and asbestos exposure. CURRENT MEDICATIONS: Documented on the chart. PAST SURGICAL HISTORY: Negative. SOCIAL HISTORY: He denies tobacco or alcohol use. He lives by himself. ALLERGIES: No known drug allergies. REVIEW OF SYSTEMS: He denies any history of kidney stones, problems with infections, previous urologic surgery, or hematuria while at home. He states he has blood coming from his penis at this time. PHYSICAL EXAMINATION: General: An obese, age apparent, normally developed black male, oriented in all ways and cooperative. HEENT: Normal for age. Lungs: Clear. Cardiovascular: Regular rate and rhythm. Abdomen: Obese, soft. The bladder appears palpable in the suprapubic area. Genitourinary: Uncircumcised male with blood at the meatus. Both testes are down. Scrotal exam is normal. Foreskin retracts. Rectal: Deferred. Extremities: There is 2+ pitting edema from the mid thighs to his feet. LABORATORIES: Laboratory evaluation has a white count of 10.4, hemoglobin of 10.1, hematocrit 32.8 and platelets of 214,000. Serum electrolytes have a sodium of 143, a potassium of 4.8, chloride 108, bicarb 21, BUN 34, creatinine 3.2. 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 PLAN: The patient was prepped and draped sterilely for Poe catheter insertion, and 20 mL of 2% viscous lidocaine was placed in the urethra. The lidocaine was held for 5 minutes. A 16-Dominican coude catheter was then passed through the patient's urethra but would not advance. The coude catheter was removed, and a 0.035 ZIPwire was passed through the patient's urethra but did not feel like it went into the bladder. A 16-Dominican Councill tip catheter was passed over the Glidewire and would not advance through the prostate. The Poe catheter and wire were removed. The patient will need a cystoscopic exam under sedation in an attempt to incise the stricture and place a Poe catheter. The planned procedure, benefits versus risks, possible complications, including, but not limited to, bleeding, infection, not being able to place the catheter through the urethra, and need for further surgery were discussed. He seems to understand and desires to proceed. cc: Joe Rose MD
--- NOTE | 2018-12-02 20:24 | OPERATIVE NOTE ---
PROCEDURE DATE: 12/02/2018 SURGEON: Joe Rose MD. PREOPERATIVE DIAGNOSIS: Inability to place a Poe catheter at bedside, probably due urethral stricture. POSTOPERATIVE DIAGNOSES: 1. Inability to place a Poe catheter at bedside, probably due urethral stricture. 2. Complete obstruction of the proximal bulbar urethra with probable false passage. ANESTHESIA: IV sedation initially, changed to general endotracheal. FINDINGS: Cystoscopic exam: Urethra greater than 21-Croatian to the proximal bulb area. There was complete obstruction at this area with blood clot. Rectal exam reveals a prostate of about 80 to 90 g, firm, but smooth and symmetric. INDICATION FOR PROCEDURE: This 82-year-old male was admitted with probable congestive heart failure and chest pains, with inability to place a Poe catheter at bedside. DESCRIPTION OF PROCEDURE: After informed consent was obtained from the patient and him receiving his routine IV antibiotics, he was taken to the main OR cystoscopy room and placed in the supine position. IV sedation was achieved. He was then prepped and draped in the usual sterile fashion for cystoscopic exam. The patient had some emesis, and a general endotracheal tube was placed. He was then prepped and draped in the usual sterile fashion for cystoscopic exam. A 21-Croatian cystoscope was passed through the patient's urethra but could not be advanced through the prostate. A 0.038 Dequan-coated guidewire was passed through the cystoscope, and attempts were made to probe the proximal bulbar area to see if the wire would advance into the bladder. This was attempted for over 30 minutes. It was decided that a suprapubic tube had to be placed. The top part of the drape was removed, and the area between the umbilicus and the pubic bone was prepped with DuraPrep. A 20-gauge spinal needle was then passed through the patient's skin 2 fingerbreadths above the pubic bone just to the right of midline and easily found the bladder. This was left in place. A stab incision was made in the midline with an 11-blade. The Klaudia suprapubic tube introducer was then passed through this stab incision parallel to the spinal needle and right into the bladder. When the trocar was removed, a large amount of fluid returned, and a 16-Croatian Poe catheter was passed through the sheath and into the bladder. There was 10 mL of sterile water placed in the balloon. The sheath and the Poe were pulled back. The sheath was removed. The Poe continued to drain a large amount of yellow urine. The Poe was sutured to the skin with 0 silk. The Poe was placed to gravity drain. He tolerated the procedure well. Estimated blood loss 3 mL. He was extubated and taken to the recovery room in good condition. cc: Joe Rose MD
[2018-12-02 21:46] LABS: CK-MB 8.05 ng/mL (0.0-5.0)
[2018-12-03] MEDS: LASIX IV SCH (03:19)
[2018-12-03] MEDS: MAXIPIME 1 GM in NS 50 ML IV SCH ×2 (03:19→15:15)
[2018-12-03 04:53] LABS: BASO# 0.01 X1000 (0.0-0.2); BASO% 0.1 % (0.0-0.8); HEMATOCRIT 35.3 % (42.0-52.0); HEMOGLOBIN 10.9 g/dL (14.0-18.0); IMM GRAN# 0.04 X1000 (0.0-0.04); IMM GRAN% 0.2 % (0.0-0.5); MCH 28.8 PG (27-31); MCHC 30.9 g/dL (33-37); MCV 93.4 FL (81-99); MONO# 0.68 X1000 (0.11-0.59); MPV 10.9 FL (7.4-10.4); NEUT# 15.28 X1000 (1.4-6.5); NEUT% 88.7 % (42.2-75.2); PLT 198 X1000 (130-400); RBC 3.78 XMIL (4.7-6.1); RDW 13.2 % (11.5-14.5); WBC 17.21 X1000 (4.8-10.8)
[2018-12-03 06:13] LABS: ALBUMIN 3.3 g/dL (3.5-5.0); CALCIUM 7.5 mg/dL (8.8-10.2); CREATININE 3.4 mg/dL (0.7-1.2); PHOSPHORUS 5.5 mg/dL (2.7-4.5); POTASSIUM 6.2 mmol/L (3.5-5.1)
[2018-12-03] MEDS: PRILOSEC PO SCH (06:13)
[2018-12-03] MEDS: HEPARIN SUBQ SCH ×2 (06:13→18:15)
[2018-12-03 06:22] LABS: LYMPHS 10 % (21-51); MONO 4 % (1-9); SEGS 86 % (42-75)
[2018-12-03] MEDS ORDERED: HUMULIN R IV ONE (06:26)
[2018-12-03] MEDS ORDERED: SODIUM BICARBONATE 8.4% IV PUSH ONE (06:26)
[2018-12-03] MEDS ORDERED: CALCIUM GLUCONATE 1 GM in NS 50 ML IV ONE (06:26)
[2018-12-03] MEDS ORDERED: D50W SYRINGE IV ONE (06:26)
[2018-12-03] MEDS ORDERED: ALBUTEROL 0.5% INH CONC FOR HYPERKALEMIA INH ONE (06:26)
--- NOTE | 2018-12-03 07:56 | ECHO REPORT ---
ORDER DATE: 12/02/2018 INTERPRETING PHYSICIAN: Dr. Hull CLINICAL INDICATIONS: 82-year-old male with chest pain, elevation of troponin, possible myocardial infarction. M-MODE MEASUREMENTS: Left ventricle end diastole: 4.4 cm. Left ventricle end systole: 2.4 cm. Posterior wall: 1.9 cm. Interventricular septum: 2.0 cm. Left atrium: 3.7 cm. Aortic diameter: 3.6 cm. SUMMARY OF 2-DIMENSIONAL IMAGING: The left ventricular function is normal. Ejection fraction 70%. There is moderate to severe concentric LVH. The aortic valve shows a mild degree of sclerosis of the cusp. There is no stenosis. Maximum gradient 11 mmHg. Mean gradient is 6 mmHg. The mitral valve opens normally. Color flow mapping of the mitral valve indicates trivial degree of regurgitation. Pulse wave Doppler of mitral inflow shows reversal of the E/A ratio. Tissue Doppler of septal and lateral mitral annulus averages 6 cm per second. There is impaired left ventricular relaxation. The pulmonic valve shows no significant abnormality. The tricuspid valve shows a mild degree of regurgitation. The pulmonary systolic pressure is estimated at 25 mmHg. The pulmonary venous flow is normal. There is no pericardial effusion. There is no mass and no thrombus. SUMMARY: 1. This echocardiographic study was difficult. The parasternal views were limited. The wall thickness of the left ventricle is increased moderately. I believe the degree of hypertrophy of the left ventricle is probably moderate to severe. The wall thickness is about 1.8 cm on most of the measurements. 2. Preserved left ventricular systolic function, ejection fraction 70%. 3. Suspect diastolic dysfunction. 4. Normal pulmonary pressure. This study would be consistent with long-term hypertension or chronic renal disease. Clinical correction recommended. cc: True Hull MD [facility]
[2018-12-03] MEDS: NORVASC PO SCH ×2 (08:28→21:31)
[2018-12-03] MEDS: LOPRESSOR PO SCH ×2 (08:28→21:31)
[2018-12-03] MEDS: ASPIRIN PO SCH (08:28)
[2018-12-03] MEDS: APRESOLINE PO SCH ×3 (08:28→16:52)
[2018-12-03] MEDS ORDERED: LOKELMA POWDER PACKET PO SCH (09:00)
[2018-12-03 09:33] LABS: UR CREAT RANDOM 61.4 mg/dL (14-26)
[2018-12-03] MEDS: LOKELMA POWDER PACKET PO SCH ×2 (10:36→15:11)
--- NOTE | 2018-12-03 13:09 | PROGRESS NOTE ---
DATE: 12/03/2018 SUBJECTIVE: The patient has no major complaints. He feels better. He has been having obstructive symptoms previously. OBJECTIVE: Vital Signs: His last blood pressure says 88/68, prior to that it was 156/61, heart rate is 78, respiratory rate is 20, temperature is 99.8 degrees, his T-max was 101.3 degrees. Cardiovascular: Regular rate and rhythm. Pulmonary: Bilateral breath sounds clear to auscultation. Gastrointestinal: Soft, nontender, and nondistended. Bowel sounds are positive. LABORATORY DATA: White count is up to 17, hemoglobin and hematocrit 10 and 35, platelets 198,000. Creatinine at 3.4. PROBLEM LIST: 1. Malignant hypertension. He is on multiple antihypertensives. There has been some issues with compliance. His blood pressure is improved. Cardiology is following. He is on hydralazine and metoprolol and seems to be doing better. 2. Gram-negative renee urinary tract infection. We will continue treatment. We him on cefepime and vancomycin, which the vancomycin we will have to be careful with because of his renal insufficiency, but I think we could consider stopping it because we have a probably clear etiology for his fevers, which is urinary tract infection with urinary retention. 3. Acute on chronic renal failure. We are going to continue to follow. I do not see that we have done imaging of his kidneys, so we will continue to follow closely. 4. Stage IV kidney dysfunction, but he had severe urinary retention which may be contributing. That may start to improve as he is getting better. I think he is probably stable for the floor. We will continue to monitor. DISPOSITION: I think he is stable for step-down. We will continue to follow. cc: Magdy Long MD
--- NOTE | 2018-12-03 13:15 | NEPHROLOGY PROGRESS NOTE ---
DATE: 12/03/2018 SUBJECTIVE: He states he feels much better after his suprapubic catheter was placed. No shortness of breath, nausea or vomiting. OBJECTIVE: Vital Signs: Blood pressure 185/73, heart rate 92, respirations 27, temperature 99.0 degrees. Intake 1.7 L; output 3.3 L. General: On physical examination, no acute distress. Skin: Warm and dry. Neck: Neck veins are flat. No hepatojugular reflux. Heart: Regular. No gallops. Lungs: Equal. No crackles or wheezes. Abdomen: Soft, nontender. Bowel sounds present. Extremities: No edema, clubbing or cyanosis. IMPRESSION: 1. Chronic kidney disease. Creatinine is 3.4 today. Minimal change. Excellent urine output following suprapubic catheter placement. Observe. He may actually be dry and need fluids. 2. Hyperkalemia. Potassium 6.2 today. Will dose with Lokelma. cc: Lopez Alcaraz MD
--- NOTE | 2018-12-03 16:47 | Diag Imaging Result Doc PS360 ---
EXAM: US RENAL 2 (RETROPER) COMPLETE INDICATION: kinjal/arf TECHNIQUE: COMPARISON: None. FINDINGS: The renal echotexture is increased bilaterally, which is a nonspecific indicator of medical renal disease. No hydronephrosis is appreciated. No solid renal mass is identified. There is a 5.1 cm simple cyst associated with the left kidney. The right kidney measures 11.2 cm and the left kidney measures 12.6 cm in the greatest longitudinal axes. Right renal cortex measures 1 cm in the left renal cortex measures 1.1 cm in thickness. The patient has a suprapubic catheter and the bladder is nondistended. IMPRESSION: Bilateral increased renal cortical echotexture, which is a nonspecific indicator of medical renal disease and a simple left renal cyst. Electronically signed by Uzair Fortune 12/03/2018 4:44 PM
[2018-12-04] MEDS: MAXIPIME 1 GM in NS 50 ML IV SCH ×2 (04:30→16:29)
[2018-12-04 05:45] LABS: BASO# 0.03 X1000 (0.0-0.2); BASO% 0.2 % (0.0-0.8); EOS# 0.26 X1000 (0.0-0.7); EOS% 1.9 % (0.0-10.0); HEMOGLOBIN 10.6 g/dL (14.0-18.0); IMM GRAN# 0.05 X1000 (0.0-0.04); IMM GRAN% 0.4 % (0.0-0.5); LYMPH# 2.58 X1000 (1.2-3.4); MCH 28.7 PG (27-31); MCHC 30.3 g/dL (33-37); MCV 94.9 FL (81-99); MONO# 1.53 X1000 (0.11-0.59); MONO% 11.3 % (1.7-9.3); MPV 10.8 FL (7.4-10.4); NEUT# 9.13 X1000 (1.4-6.5); NEUT% 67.2 % (42.2-75.2); PLT 213 X1000 (130-400); RBC 3.69 XMIL (4.7-6.1); RDW 13.5 % (11.5-14.5); WBC 13.58 X1000 (4.8-10.8)
[2018-12-04] MEDS: PRILOSEC PO SCH (06:15)
[2018-12-04 06:16] LABS: ALBUMIN 3.1 g/dL (3.5-5.0); CALCIUM 7.6 mg/dL (8.8-10.2); CREATININE 3.7 mg/dL (0.7-1.2); PHOSPHORUS 5.6 mg/dL (2.7-4.5)
[2018-12-04] MEDS: LOPRESSOR PO SCH ×2 (08:24→21:16)
[2018-12-04] MEDS: NORVASC PO SCH ×2 (08:24→21:16)
[2018-12-04] MEDS: ASPIRIN PO SCH (08:24)
[2018-12-04] MEDS: HEPARIN SUBQ SCH ×2 (08:25→21:16)
[2018-12-04] MEDS: APRESOLINE PO SCH ×3 (08:25→16:28)
[2018-12-04] MEDS ORDERED: LASIX IV SCH (09:00)
--- NOTE | 2018-12-04 14:36 | PROGRESS NOTE ---
DATE: 12/04/2018 SUBJECTIVE: Patient has no major complaints. He is sitting up in bed. He is smiling and feels pretty well. OBJECTIVE: Blood pressure 149/80, heart rate of 55, respiratory rate of 17, temperature 97.6 degrees, 100% on 2 L.Cardiovascular: Regular rate and rhythm. Pulmonary: Bilateral breath sounds. Clear to auscultation, somewhat diminished at the bases. GI: Soft, nontender, nondistended. Bowel sounds are positive. LABORATORY DATA: White count 13 which is down from 17, hemoglobin and hematocrit 10, 35, platelets 213,000. Creatinine at 3.7, BUN of 44, which is a bit of a rise. PROBLEM LIST: 1. Malignant hypertension. That is improved on current medications. Continue to follow. 2. Klebsiella oxytoca urinary tract infection associated with urinary retention. He is on cefepime and that seems to be stable. It is sensitive to Rocephin, Levaquin, it is resistant to cefazolin so he will need a 3rd generation cephalosporin. Bactrim is a possibility but I am reluctant to use that with his renal insufficiency and potential for hyperkalemia. 3. Acute on chronic renal failure, renal is following. He is getting a 24 hour urine. Continue to monitor. 4. Severe urinary retention. His renal ultrasound I do not think there was any hydronephrosis which is good but he does have chronic renal disease based on that, the thinning of the cortices. DISPOSITION: Pending his clinical status. He is status post a suprapubic catheter. Unsure if we could try to switch his Lasix to p.o. and see what, he has got lower extremity swelling but I am not entirely sure that may not be related to his kidney dysfunction and various other things. Disposition pending clinical status, probably okay to go to the floor soon. cc: Magdy Long MD
--- NOTE | 2018-12-04 20:17 | NEPHROLOGY PROGRESS NOTE ---
DATE: 12/04/2018 SUBJECTIVE: No new complaints today. No nausea, vomiting, shortness of breath etc. OBJECTIVE: Vital Signs: Blood pressure 149/80, heart rate 55, respirations 17, afebrile. Intake 1.6 L, output 1.4 L. General: No acute distress. Skin: Warm and dry. Conjunctivae are pink. Neck: Veins are not appreciated. Heart: Regular. Lungs: Equal. No crackles. Abdomen: Soft, nontender. Bowel sounds present. Extremities: No edema, clubbing or cyanosis. IMPRESSION: Chronic kidney disease stage 4. No improvement following suprapubic catheter placement, in fact his creatinine is rising modestly. He is not receiving any overtly nephrotoxic medications. He appeared euvolemic so I will stop his furosemide today and observe his renal function over the next 48 hours. cc: Lopez Alcaraz MD
[2018-12-05] MEDS: MAXIPIME 1 GM in NS 50 ML IV SCH ×2 (04:46→16:39)
[2018-12-05 05:43] LABS: BASO# 0.03 X1000 (0.0-0.2); BASO% 0.3 % (0.0-0.8); EOS# 0.34 X1000 (0.0-0.7); EOS% 2.9 % (0.0-10.0); HEMATOCRIT 35.5 % (42.0-52.0); HEMOGLOBIN 10.8 g/dL (14.0-18.0); IMM GRAN# 0.04 X1000 (0.0-0.04); IMM GRAN% 0.3 % (0.0-0.5); LYMPH# 2.29 X1000 (1.2-3.4); LYMPH% 19.4 % (20.5-51.1); MCH 28.4 PG (27-31); MCHC 30.4 g/dL (33-37); MCV 93.4 FL (81-99); MONO# 1.47 X1000 (0.11-0.59); MONO% 12.5 % (1.7-9.3); MPV 11.2 FL (7.4-10.4); NEUT# 7.61 X1000 (1.4-6.5); NEUT% 64.6 % (42.2-75.2); PLT 218 X1000 (130-400); RDW 13.3 % (11.5-14.5); WBC 11.78 X1000 (4.8-10.8)
[2018-12-05 06:15] LABS: ALBUMIN 3.1 g/dL (3.5-5.0); CALCIUM 7.6 mg/dL (8.8-10.2); CREATININE 3.5 mg/dL (0.7-1.2); PHOSPHORUS 3.9 mg/dL (2.7-4.5); POTASSIUM 4.8 mmol/L (3.5-5.1)
[2018-12-05] MEDS: PRILOSEC PO SCH (06:37)
[2018-12-05] MEDS: HEPARIN SUBQ SCH ×2 (08:22→21:43)
[2018-12-05] MEDS: APRESOLINE PO SCH ×3 (08:22→16:38)
[2018-12-05] MEDS: ASPIRIN PO SCH (08:22)
[2018-12-05] MEDS: LOPRESSOR PO SCH ×2 (08:22→21:42)
[2018-12-05] MEDS: NORVASC PO SCH ×2 (08:22→21:42)
[2018-12-05] MEDS ORDERED: LASIX PO SCH (09:00)
--- NOTE | 2018-12-05 13:32 | PROGRESS NOTE ---
DATE: 12/05/2018 SUBJECTIVE: He looks well. He is sitting up in bed. No major complaints, although he is weak. Per the nursing staff, he has difficulty getting up and around. We discussed about his catheter. It was suprapubic, which is a more permanent catheter that he would go home with, and I do not think he understood that, so I am going to communicate with him a bit about that, and he was aware, or he understood that this would likely be more permanent until the swelling in his urethra had diminished, and Dr. Rose would have to work with him as an outpatient to get that coordinated. OBJECTIVE: Vital Signs: Blood pressure 151/59, heart rate 62, respiratory 23, temperature 99.6 degrees. Cardiovascular: Regular rate and rhythm. Pulmonary: Bilateral breath sounds, clear to auscultation. GI: Soft, nontender, nondistended. Bowel sounds were positive. Extremity: No clubbing or cyanosis. Lymphatic: No peripheral edema. Neurological: Nonfocal. His peripheral edema was 1+. LABORATORY DATA: White count is 11, hemoglobin and hematocrit 10 and 35, platelets 218,000. Creatinine at 3.5, which has kind of fluctuated. With his GFR, from my standpoint, he is a stage 4 and that is kind of where he is at. I do not think it is going to improve very much from where it is at. There was some hope, I think, that once the obstructive uropathy had resolved, but I think at this point this is likely his new baseline. ASSESSMENT: 1. Malignant hypertension. He is controlled on his current regimen. 2. Klebsiella oxytoca urinary tract infection. He is on cefepime, which I think we can probably switch him to Rocephin or something in that genre. His Klebsiella here is sensitive to multiple oral options. 3. Stage 4 kidney disease. Nephrology is following. We are stopping Lasix and we are going to continue to monitor. 4. Severe urinary retention with possible urethral false lumen. We will continue to monitor. Urology has placed a suprapubic catheter, and they will continue to follow and decide about long-term usage of the Poe. DISPOSITION: Pending clinical status, but I think he should be okay for the floor. We will start to work with physical therapy as well. cc: Magdy Long MD
[2018-12-05] MEDS: LACTULOSE PO SCH ×2 (13:40→21:43)
[2018-12-05] MEDS: MIRALAX PO SCH (13:41)
--- NOTE | 2018-12-05 15:20 | Diag Imaging Result Doc PS360 ---
EXAM: KUB ABDOMEN INDICATION: swelling TECHNIQUE: 2 views COMPARISON: None. FINDINGS: There is a fair amount stool throughout the colon, especially in the ascending colon suggesting possible constipation. There are nonspecific colonic gas patterns. There is no obstructive pattern. There is no evidence of large volume free abdominal gas. IMPRESSION: Suggestion of constipation. Electronically signed by Uzair Fortune 12/05/2018 3:17 PM
[2018-12-05] MEDS ORDERED: VANCOMYCIN 1,600 MG in NS 250 ML IV SCH (20:00)
[2018-12-05] MEDS: TYLENOL PO PRN (21:42)
[2018-12-06] MEDS ORDERED: NORCO-7.5 PO ONE (04:03)
[2018-12-06] MEDS: MAXIPIME 1 GM in NS 50 ML IV SCH ×2 (06:26→16:59)
[2018-12-06] MEDS: PRILOSEC PO SCH (06:26)
[2018-12-06 07:56] LABS: BASO# 0.04 X1000 (0.0-0.2); BASO% 0.3 % (0.0-0.8); EOS# 0.11 X1000 (0.0-0.7); EOS% 0.8 % (0.0-10.0); HEMATOCRIT 35.2 % (42.0-52.0); HEMOGLOBIN 10.9 g/dL (14.0-18.0); IMM GRAN# 0.05 X1000 (0.0-0.04); IMM GRAN% 0.4 % (0.0-0.5); LYMPH# 2.57 X1000 (1.2-3.4); LYMPH% 19.1 % (20.5-51.1); MCH 28.8 PG (27-31); MCV 92.9 FL (81-99); MONO# 1.94 X1000 (0.11-0.59); MONO% 14.4 % (1.7-9.3); MPV 10.8 FL (7.4-10.4); NEUT# 8.72 X1000 (1.4-6.5); PLT 215 X1000 (130-400); RBC 3.79 XMIL (4.7-6.1); RDW 13.4 % (11.5-14.5); WBC 13.43 X1000 (4.8-10.8)
[2018-12-06 08:07] LABS: CALCIUM 7.7 mg/dL (8.8-10.2); CREATININE 2.9 mg/dL (0.7-1.2); POTASSIUM 4.6 mmol/L (3.5-5.1)
[2018-12-06] MEDS: ASPIRIN PO SCH (08:59)
[2018-12-06] MEDS: HEPARIN SUBQ SCH ×2 (08:59→20:55)
[2018-12-06] MEDS: LACTULOSE PO SCH ×2 (08:59→20:55)
[2018-12-06] MEDS: NORVASC PO SCH ×2 (08:59→20:55)
[2018-12-06] MEDS: LOPRESSOR PO SCH ×3 (08:59→21:16)
[2018-12-06] MEDS: APRESOLINE PO SCH ×3 (09:00→16:59)
[2018-12-06] MEDS: MIRALAX PO SCH ×2 (09:00→20:59)
[2018-12-06] MEDS ORDERED: FLEET MINERAL OIL ENEMA PR ONE (12:19)
--- NOTE | 2018-12-06 12:31 | NEPHROLOGY PROGRESS NOTE ---
DATE: 12/06/2018 TIME SEEN: 0740. SUBJECTIVE: Mr. Torres is resting quietly in bed. Head of the bed is elevated. He states that he is hurting all over, feels that he is having" kidney pain". OBJECTIVE: His most recent vital signs, his temperature 98.1, blood pressure 160/62, heart rate 52, respirations are 17. He is on room air. Last recorded saturation 98%. He has had 720 in. He has had 1900 out to his suprapubic catheter. Labs: His sodium is 136, potassium 4.6, chloride is 105, CO2 20, BUN 49, creatinine 2.9, glucose is 93, his anion gap is 11, his calcium is 7.7. Previous hemoglobin 10.8. White count 13.43, hemoglobin 10.9, hematocrit 35.2, with a platelet count of 215,000. Physical Examination: General: This is an 82-year-old, white male. He is resting quietly in bed. Head of the bed is elevated. He appears in no acute distress, though he is uncomfortable. HEENT: Normocephalic and atraumatic. Conjunctivae are pale. He has ABDON. Mucous membranes are dry. Neck: Supple. Trachea midline. Unable to appreciate any JVD in the upright position. Cardiovascular: Regular rate and rhythm without gallop. Lungs: Diminished breath sounds with poor inspiratory effort. He remains on room air. Abdomen: Large, round, soft, nontender. Positive bowel sounds. Genitourinary: Patient has a suprapubic catheter currently in place. He has a dressing that is dry and intact. Adequate urine output to Poe catheter. Extremities: Have no edema. No clubbing or cyanosis. ASSESSMENT AND PLAN: 1. Chronic kidney disease stage 4. Patient is actually at his routine historical baseline of 2.5 to 2.9. This has improved over the weekend. Adequate urine output is documented. No indications for intervention. Suprapubic catheter remains in place. Lasix remains on hold. 2. Electrolytes and acid-base balance. These are acceptable. 3. Anemia. This is in target. 4. Elevated white blood cells with leukocytosis. Patient remains on Maxipime renally dosed. I would like to thank you for allowing us to follow with this patient. Dictated by GWENDOLYN Bender for Lopez Alcaraz MD Face to face encounter, data reviewed, discussed with Randall Jenkins on 12/06/18. I agree with the above assessment and plan of care. cc: GWENDOLYN Bender MD [facility]
[2018-12-06] MEDS: SENOKOT PO SCH (12:50)
[2018-12-06] MEDS: NORCO-7.5 PO PRN ×2 (12:50→21:19)
--- NOTE | 2018-12-06 12:53 | PROGRESS NOTE ---
DATE: 12/06/2018 SUBJECTIVE: Patient has no major complaints. OBJECTIVE: Vitals: Blood pressure is 157/62, heart rate of 56, respiratory rate of 18, temperature 97.9 degrees. General: He is complaining of pain in his back. He said he had a bowel movement yesterday, but nothing was recorded. Cardiovascular: Regular rate and rhythm. Pulmonary: Decreased at the bases. GI: Soft. He was distended from my standpoint. Bowel sounds positive though. Lymphatics: He still has some trace peripheral edema. LABORATORY DATA: White count is 13, hemoglobin and hematocrit 10 and 35, platelets 215,000. Basic was normal, except for creatinine of 2.9, BUN of 49, but that is an improvement. PROBLEM LIST: 1. Malignant hypertension is controlled on his current medications. 2. Klebsiella oxytoca urinary tract infection. He is on cefepime, renally dosed. 3. Acute on chronic renal failure. His kidney function has improved with the cessation of Lasix. We will continue to follow. Dr. Alcaraz is following. 4. Constipation. We will continue medications and follow closely. 5. Severe urinary retention status post suprapubic catheter. Appreciate Dr. Rose input. We will continue to monitor urine function. DISPOSITION: I think he probably will need rehab, so we will continue to follow closely. He is not too excited about it, but I do not think he has much option. He did not do too well with physical therapy. So hopefully should be ready in the next day or two. cc: Magdy Long MD
[2018-12-07] MEDS: PRILOSEC PO SCH (06:00)
[2018-12-07] MEDS: NORCO-7.5 PO PRN (06:01)
[2018-12-07] MEDS: MAXIPIME 1 GM in NS 50 ML IV SCH ×2 (06:02→17:17)
[2018-12-07 07:37] LABS: CALCIUM 8.6 mg/dL (8.8-10.2); CREATININE 2.9 mg/dL (0.7-1.2); PHOSPHORUS 4.4 mg/dL (2.7-4.5); POTASSIUM 5.1 mmol/L (3.5-5.1)
[2018-12-07 08:49] LABS: BASO# 0.05 X1000 (0.0-0.2); BASO% 0.3 % (0.0-0.8); EOS# 0.08 X1000 (0.0-0.7); EOS% 0.5 % (0.0-10.0); HEMATOCRIT 38.8 % (42.0-52.0); IMM GRAN# 0.07 X1000 (0.0-0.04); IMM GRAN% 0.5 % (0.0-0.5); LYMPH# 2.69 X1000 (1.2-3.4); LYMPH% 18.4 % (20.5-51.1); MCH 29.1 PG (27-31); MCHC 30.9 g/dL (33-37); MCV 93.9 FL (81-99); MONO% 11.6 % (1.7-9.3); MPV 10.9 FL (7.4-10.4); NEUT# 10.05 X1000 (1.4-6.5); NEUT% 68.7 % (42.2-75.2); PLT 263 X1000 (130-400); RBC 4.13 XMIL (4.7-6.1); RDW 13.5 % (11.5-14.5); WBC 14.64 X1000 (4.8-10.8)
[2018-12-07 08:57] LABS: EOS 1 % (1-10); LYMPHS 19 % (21-51); MONO 10 % (1-9); SEGS 70 % (42-75)
[2018-12-07 08:58] LABS: LARGE PLATELETS 1+
[2018-12-07] MEDS: MIRALAX PO SCH ×2 (09:51→22:46)
[2018-12-07] MEDS: LACTULOSE PO SCH ×2 (09:52→22:46)
[2018-12-07] MEDS: NORVASC PO SCH ×2 (09:52→22:47)
[2018-12-07] MEDS: SENOKOT PO SCH (09:52)
[2018-12-07] MEDS: HEPARIN SUBQ SCH ×2 (09:52→22:46)
[2018-12-07] MEDS: LOPRESSOR PO SCH ×2 (09:52→22:46)
[2018-12-07] MEDS: ASPIRIN PO SCH (09:52)
[2018-12-07] MEDS: APRESOLINE PO SCH ×4 (09:52→18:20)
[2018-12-07] MEDS ORDERED: DULCOLAX PR ONE (13:30)
[2018-12-07] MEDS ORDERED: SORBITOL PO ONE (13:30)
--- NOTE | 2018-12-07 14:37 | Diag Imaging Result Doc PS360 ---
EXAM: ABDOMEN FLAT/UPRIGHT HISTORY: constipation/abdominal pain TECHNIQUE: Portable flat and upright, two views COMPARISON: 12/05/2018 FINDINGS: No bowel obstruction. Significant decrease in the amount of stool in colon. Mild scoliosis with degenerative spine changes. No organomegaly. IMPRESSION: No constipation on the current study. Electronically signed by Brandon Childs 12/07/2018 2:35 PM
[2018-12-07 16:10] LABS: URINE SOURCE CATH
[2018-12-07 16:22] LABS: BILIRUBIN URINE NEGATIVE (NEGATIVE); BLOOD URINE MODERATE (NEGATIVE); COLOR YELLOW; GLUCOSE URINE NEGATIVE (NEGATIVE); KETONE URINE TRACE mg/dL (NEGATIVE); LEUKOCYTES URINE SMALL (NEGATIVE); NITRITE URINE NEGATIVE (NEGATIVE); PROTEIN URINE 300 mg/dL (NEGATIVE); SP GRAVITY URINE 1.015; TURBIDITY URINE HAZY (CLEAR); UROBILINOGEN URINE NORMAL (NORMAL)
[2018-12-07 16:24] LABS: UR EPITHELIAL CELLS >10 /HPF (<10); URINE BACTERIA NEGATIVE /HPF; URINE RBC TNTC /HPF (<10); URINE WBC 20-40 /HPF (<10)
[2018-12-07 16:34] LABS: URINE YEAST NONE SEEN
--- NOTE | 2018-12-07 18:17 | PROGRESS NOTE ---
DATE: 12/07/2018 SUBJECTIVE: The patient states that he has been having abdominal pain. He states that he has not had a bowel movement in 3 days. OBJECTIVE: Vital Signs: Temperature 98.1, blood pressure 149/53, heart rate 53, respirations 18. O2 sats 98% on room air. Urine output 2 L. General: This is a chronically ill-appearing elderly male lying in bed in no acute distress. Heart: S1, S2 normal. Bradycardic. Lungs: Clear to auscultation bilaterally. Abdomen: Positive bowel sounds. Soft, nontender, nondistended. Extremities: 2-3+ edema. Neurologic: The patient is alert and oriented x 4. LABS: White blood cell count 14.6, hemoglobin 12, hematocrit 38, platelets 263,000. Sodium 136, potassium 5.1, chloride 105, CO2 15, BUN 50, creatinine 2.9, glucose 94, calcium 8.6. ASSESSMENT AND PLAN: 1. Urinary tract infection secondary to Klebsiella oxytoca. Will continue on cefepime. The urinalysis done today shows some mild improvement. 2. Acute kidney injury on chronic kidney disease. The patient's urine immunoelectrophoresis indicates that there is a Bence Blanca protein present. The patient will be seen by Dr. Gamboa today. 3. Constipation. Will start the patient on scheduled laxative therapy. 4. Leukocytosis. We will continue to monitor for improvement. Continue with IV cefepime. 5. Metabolic acidosis. Management as per the notched blade loader. 6. Protein calorie malnutrition. We will continue to encourage the patient to eat more. 7. Hypertension. Continue on the current antihypertensive regimen. 8. DVT prophylaxis. Continue on heparin. 9. Disposition. Continue with physical therapy. cc: Dora Tadeo MD [facility]
--- NOTE | 2018-12-07 20:34 | NEPHROLOGY PROGRESS NOTE ---
DATE: 12/07/2018 DATE AND TIME: Date seen 12/07/2018. Time seen is 0625. SUBJECTIVE: Mr. Torres is resting quietly in bed. He is on the side of the bed. Complains of some abdominal discomfort. States that he is constipated. OBJECTIVE: Vital Signs: His most recent vital signs: Temperature 98.5, blood pressure 165/60, heart rate 64, respirations 18. He is on room air. Last recorded saturation 97%. He has had 780 in. He has had 2 L out to Poe catheter. LABORATORY DATA: Sodium 136, potassium 5.1, chloride 105, CO2 15, BUN 50, creatinine 2.9, glucose 94, anion gap is 16, calcium 8.6, phosphorus 4.4, albumin is 3. White count 4.64, hemoglobin 12, hematocrit 38.8, with a platelet count of 263,000. Patient has an immunoelectrophoresis showing that he has positive monoclonal bands present in the beta region consistent with paraprotein. 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 Blood cultures are negative after 5 days. Urine indicates Klebsiella oxytoca. PHYSICAL EXAMINATION: General: This is an 82-year-old male who appears in moderate distress secondary to abdominal discomfort due to constipation. HEENT: Normocephalic, atraumatic. Conjunctiva is pale pink. He has ABDON. Mucous membranes are dry. Neck: Supple. Trachea midline. No evidence of JVD. Cardiovascular: He is regular rate and rhythm. He is without murmur or gallop. Lungs: Clear to auscultation bilaterally. Equal excursion. He is on room air. Abdomen: Slightly tender to palpation. Suprapubic catheter remains dry and intact with Poe catheter attached. Adequate urine out. Extremities: He has trace pretibial edema. No clubbing or cyanosis. Neurologic: Alert and oriented x 3. ASSESSMENT AND PLAN: 1. Chronic kidney disease stage 4. Patient's creatinine remains stable at his historical baseline of 2.5 to 2.9, 2.9 today with adequate urine output documented. 2. Electrolytes and acid-base balance. These are acceptable. 3. Anemia. This is close to target. 4. Elevated white count with leukocytosis. Patient remains on renal dosed Maxipime. 5. Positive SPEP for monoclonal bands. We will consult Dr. Cristel Evangelista who is on-call today to follow and monitor, to evaluate and treat. I would like to thank you for allowing us to follow with this patient. Dictated by GWENDOLYN Bender for Lopez Alcaraz MD Face to face encounter, data reviewed, discussed with Randall Jenkins on 12/07/18. I agree with the above assessment and plan of care. cc: GWENDOLYN Bender MD [facility]
--- NOTE | 2018-12-07 21:50 | HEMO/ONC CONSULTATION ---
DATE: 12/07/2018 REQUESTING PHYSICIAN: Hospitalist Service REASON FOR CONSULTATION: Positive Bence protein on SIRISHA. HISTORY OF PRESENT ILLNESS: Mr. Torres is an 82-year-old, male who initially presented with a hypertensive urgency and was admitted to the hospital for further evaluation and treatment. He also had chest pain, dyspnea on admission. During his workup, immunoelectrophoresis was completed which does show him to have monoclonal band of the lambda specificity present consistent with a Bence-Blanca protein. He has also had a serum immunoelectrophoresis completed, which shows an M spike of 0.24 and also a monoclonal band of IgA lambda specificity present. We have been asked to evaluate the patient further. PAST MEDICAL HISTORY: 1. Hypertensive heart disease. 2. Chronic kidney disease. PAST SURGICAL HISTORY: Patient has denied any previous surgeries. FAMILY HISTORY: Negative for any multiple myeloma. Positive for diabetes mellitus and lung disease. SOCIAL HISTORY: Patient lives alone but has family support. He denies any past or present tobacco, alcohol or illicit drug use. REVIEW OF SYSTEMS: As per HPI. All else is negative or noncontributory. Twelve-point review of systems has been completed. PHYSICAL EXAMINATION: Vital Signs: Temperature 97.6 degrees, heart rate 56, respirations 18, blood pressure 168/94, O2 saturation 98% on room air. General: This is an male, resting comfortably in his hospital bed. There is no one at bedside. He is in no acute distress. Head: Normocephalic, atraumatic. Eyes: Pupils equal, round, reactive. Ears, nose, throat, neck, mouth: Oral mucosa is normal. Cardiovascular: S1, S2 heard. Bradycardia but regular rhythm. Respiratory: Chest is essentially clear with no respiratory effort. Gastrointestinal: Abdomen is soft. Positive bowel sounds. Musculoskeletal: No bony abnormalities. Extremities: Patient has trace bilateral lower extremity edema. Neurologic: Patient is alert. LABS AND STUDIES: White blood cells today are 14.64, hemoglobin 12.0, hematocrit 38.8, platelet count 263,000, sodium 136, potassium 5.1, chloride 105, CO2 15, BUN 50, creatinine 2.9, glucose 94, urine immunoelectrophoresis and serum immunoelectrophoresis as per HPI. ASSESSMENT AND PLAN: 1. Monoclonal gammopathy of undetermined significance. 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 Creatinine though up some is still close to his baseline. Calcium is not elevated. We reviewed the labs as per above. Recommend repeat MGUS panel in 6 months. 2. Malignant hypertension with elevated troponin. Management per Cardiology and Dr. Long's team. 3. Pulmonary edema in the setting of renal insufficiency. He is on diuretics, and the primary team continues to follow closely. 4. Urinary tract infection. Also he has a Poe in. Urology is involved now. He is on IV antibiotics. 5. Acute on chronic renal failure. He is followed by Dr. Alcaraz. Nephrology has been consulted. Thank you for consulting us on Mr. Torres. We will continue to follow along and adjust our treatment plan per his hospital course. Dictated by BRITANY Zhang for Cristel Evangelista MD cc: Cristel Evangelista MD I have seen and examined the patient and the above note reflects my history, physical examination, assessment and plan. Cristel Evangelista MD [facility]ITALClarence
[2018-12-08] MEDS: MAXIPIME 1 GM in NS 50 ML IV SCH ×2 (04:49→17:43)
[2018-12-08] MEDS: PRILOSEC PO SCH (06:25)
[2018-12-08] MEDS: NORCO-7.5 PO PRN (06:30)
[2018-12-08 08:01] LABS: BASO# 0.03 X1000 (0.0-0.2); BASO% 0.2 % (0.0-0.8); EOS# 0.19 X1000 (0.0-0.7); EOS% 1.5 % (0.0-10.0); HEMATOCRIT 35.5 % (42.0-52.0); HEMOGLOBIN 10.8 g/dL (14.0-18.0); IMM GRAN# 0.07 X1000 (0.0-0.04); IMM GRAN% 0.6 % (0.0-0.5); LYMPH# 2.42 X1000 (1.2-3.4); LYMPH% 19.6 % (20.5-51.1); MCH 28.3 PG (27-31); MCHC 30.4 g/dL (33-37); MCV 93.2 FL (81-99); MONO# 1.31 X1000 (0.11-0.59); MONO% 10.6 % (1.7-9.3); MPV 11.1 FL (7.4-10.4); NEUT# 8.31 X1000 (1.4-6.5); NEUT% 67.5 % (42.2-75.2); PLT 272 X1000 (130-400); RBC 3.81 XMIL (4.7-6.1); RDW 13.5 % (11.5-14.5); WBC 12.33 X1000 (4.8-10.8)
--- NOTE | 2018-12-08 08:08 | Diag Imaging Result Doc PS360 ---
EXAM: CHEST-PORTABLE INDICATION: dyspnea TECHNIQUE: One view COMPARISON: 12/01/2018 FINDINGS: The lungs are grossly clear. There is no discrete pleural fluid collection or pneumothorax. The heart is mildly prominent similar to the previous study. Central vasculature is unremarkable. IMPRESSION: Mild cardiomegaly. No definite acute pathology by plain radiograph. Electronically signed by Uzair Fortune 12/08/2018 8:06 AM
[2018-12-08 08:20] LABS: ALBUMIN 2.8 g/dL (3.5-5.0); CALCIUM 8.4 mg/dL (8.8-10.2); CREATININE 2.8 mg/dL (0.7-1.2); PHOSPHORUS 3.9 mg/dL (2.7-4.5)
[2018-12-08] MEDS: LACTULOSE PO SCH ×2 (09:34→22:12)
[2018-12-08] MEDS: MIRALAX PO SCH ×2 (09:34→22:12)
[2018-12-08] MEDS: NORVASC PO SCH ×2 (09:35→22:12)
[2018-12-08] MEDS: ASPIRIN PO SCH (09:35)
[2018-12-08] MEDS: HEPARIN SUBQ SCH ×3 (09:35→22:12)
[2018-12-08] MEDS: APRESOLINE PO SCH ×3 (09:35→17:43)
[2018-12-08] MEDS: LOPRESSOR PO SCH ×2 (09:36→22:12)
[2018-12-08] MEDS: SENOKOT PO SCH (09:36)
--- NOTE | 2018-12-08 14:59 | NEPHROLOGY PROGRESS NOTE ---
DATE: 12/08/2018 DATE AND TIME OF EXAM: 12/08/2018 at 0850 hours. SUBJECTIVE: Mr. Torres is sitting up on the side of the bed. States that he is having some abdominal discomfort. He states that his constipation is feeling slightly better. Denies chest pain or increased work of breathing. OBJECTIVE: His most recent vital signs: Temperature 98.3 degrees, blood pressure 155/59, heart rate 55, respirations 18. He is on room air. Last recorded saturation 96%. He has had 350 in;he has had 1700 out to his suprapubic Poe catheter. General: This is an 82-year-old male. He is resting quietly on the side of the bed. He is in no acute distress, although he appears chronically ill. Skin: Warm and dry. HEENT: Normocephalic, atraumatic. Conjunctiva is pale pink. He has ABDON. Mucous membranes are moist. Neck: Supple. Trachea midline. No evidence of JVD in the upright position. Cardiovascular: Regular rate and rhythm. He is without murmur or gallop. Lungs: Clear to auscultation anterior. Equal excursion on room air. Abdomen: Soft, slightly tender on palpation. Suprapubic catheter remains in place. Dressing around this insertion site is dry and intact. Adequate urine out to Poe bag. Extremities: Have trace pretibial edema. No clubbing or cyanosis. Neurological: Alert and oriented x3. LABS: His most recent labs: Sodium is 138, potassium 5, chloride 107, CO2 18. BUN is 55, creatinine is 2.8, glucose is 96. The patient's anion gap is 13. Previous calcium of 8.4, phosphorus of 3.9 with an albumin of 2.8. White count 12.33, hemoglobin 10.8, hematocrit 35.5 with a platelet count of 272. ASSESSMENT AND PLAN: 1. Chronic kidney disease stage IV. Patient is close to his baseline creatinine of 2.5. He is at 2.8 today. Adequate urine output noted. 2. Electrolytes and acid-base balance: These are acceptable. 3. Anemia: This is close to target. 4. Elevated white count with leukocytosis. He remains on renal dosed Maxipime. 5. Positive SPEP for monoclonal bands indicating positive Bence Blanca protein on immunofixation electrophoresis. Dr. Evangelista has been consulted. Positive monoclonal gammopathy of undetermined significance. Patient did have an MGUS spike, along with a spike in his renal status. We have discussed following the patient in 2 weeks after discharge with possible renal biopsy. I would like to thank you for allowing us to follow with this patient. Dictated by GWENDOLYN Bender for Lopez Alcaraz MD cc: GWENDOLYN Bender MD
--- NOTE | 2018-12-08 15:14 | INFECTIOUS DISEASE CONSULT REP ---
DATE: 12/08/2018 CONCLUSION: The patient has a Klebsiella urinary tract infection. I think this is responsible for the patient's bilateral costovertebral angle pain, and also it may have contributed to worsening of his renal function. RECOMMENDATIONS: I agree with treating the patient with cefepime. The dose has been reduced because of the patient's end-stage renal disease. When the patient is discharged, I think he could be sent home on Levaquin. I plan on treating the patient for 2 weeks for his urinary tract infection. I am also going to order a repeat urine culture now to see if the Klebsiella is still present in the urine or not. DISCUSSION: The patient about 8 days ago started having bilateral costovertebral angle pain. He also was short of breath, and he was having difficulty passing his stool. He had difficulty passing his urine. An attempt was made to put a Poe catheter in, but that did not go in, and subsequently he had a suprapubic catheter put in. Laboratory studies thus far show a CBC with a white count of 12,330, hemoglobin 10.8 and platelet count 272,000. Creatinine is 2.8. GFR is 26. The renal ultrasound showed findings compatible with medical renal disease. PAST MEDICAL HISTORY/REVIEW OF SYSTEMS: Eyes and ears: He denies trouble hearing or seeing. Neck: No stiffness. Respiratory: The patient has been short of breath in the past 8 days, but before that he was not complaining of shortness of breath. 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 GI: Since he has been ill for the past 8 days, he has had a decreased frequency of passing his stool. Bones/joints/muscles: No joint swelling or muscle aching. Neurologic: No seizures. No recent loss of motor or sensory function. PREVIOUS HOSPITALIZATIONS AND OPERATIONS: The patient was admitted once for hypertension and another time because of a urinary tract infection. MEDICAL DISEASES: Positive for obesity, hypertension, and now for end-stage renal disease. Infectious disease history is positive for urinary tract infection, but not pneumonia. FAMILY HISTORY: Positive for diabetes mellitus, hypertension and myocardial infarction. SOCIAL HISTORY: [place] He is . He lives alone. Does not have any pets at home. He does not smoke cigarettes, drink alcoholic beverages or abuse drugs. ALLERGIES: Has no known drug allergies. HOME MEDICATIONS: The only 2 listed are Catapres and Apresoline. PHYSICAL EXAMINATION: Vital Signs: Temperature is 98.3 degrees, pulse 65, respirations 22, blood pressure 183/64. Patient weighs 238 pounds. General: This is an obese, elderly male. He is in no acute distress. Head/eyes/ears/nose/throat: He can hear my spoken words and see near objects. Does not have any white coating on his tongue. Neck: No meningismus. Lungs: Clear to auscultation. Cardiovascular: Heart rate is regular. Abdomen: Soft and nontender. The patient has a suprapubic catheter in place. There is no drainage coming from around the catheter. Neurologic: The patient is awake. He can move his extremities. There is no tremor. No seizures. No recent loss of motor or sensory function. cc: Sandip Marquez MD
--- NOTE | 2018-12-08 18:18 | PROGRESS NOTE ---
DATE: 12/08/2018 SUBJECTIVE: The patient is resting comfortably in bed. He states that he finally had a bowel movement today. He states that he is willing to work with physical therapy today. OBJECTIVE: Vital Signs: Temperature 98 degrees, blood pressure 146/54, heart rate 54, respirations 20, O2 saturation is 99% on room air. Urine output 1.7 L. General: This is a chronically ill-appearing, elderly male lying in bed, in no acute distress. Heart: S1, S2 normal. Regular rate and rhythm. Lungs: Clear to auscultation bilaterally. No wheezing. No rales. No rhonchi. Abdomen: Positive bowel sounds. Slightly distended, soft, nontender. Extremities: There is 3+ edema. Neurologic: The patient is alert and oriented x4. LABS: White blood cell count 12, hemoglobin 10, hematocrit 35, platelets 272,000. Sodium 138, potassium 5, chloride 107, CO2 18, BUN 55, creatinine 2.8, glucose 96, albumin 2.9. Chest x-ray shows mild cardiomegaly. ASSESSMENT AND PLAN: 1. Urinary tract infection secondary to Klebsiella oxytoca. The patient has been seen by Dr. Marquez. We will continue with cefepime. A repeat urine culture is currently pending. 2. Acute kidney injury on chronic kidney disease. This appears to be stable. Nephrology is following. 3. Urinary retention, status post suprapubic catheter placement. Stable. 4. Monoclonal gammopathy of undetermined significance. The patient will be following up with Dr. Evangelista in 6 months for repeat blood work. 5. Hypertension. Continue on the current antihypertensive regimen. 6. Constipation. Improved. Continue with scheduled laxative therapy. 7. Chronic diastolic CHF. Stable. 8. Deep vein thrombosis prophylaxis. Continue on heparin. 9. Disposition. Will likely be able to discharge the patient home in the next 24 to 48 hours. cc: Dora Tadeo MD MTDD
[2018-12-09] MEDS: PRILOSEC PO SCH (06:46)
[2018-12-09] MEDS: MAXIPIME 1 GM in NS 50 ML IV SCH ×2 (06:46→14:30)
[2018-12-09 08:05] LABS: BASO# 0.04 X1000 (0.0-0.2); BASO% 0.3 % (0.0-0.8); EOS# 0.25 X1000 (0.0-0.7); EOS% 2.1 % (0.0-10.0); HEMATOCRIT 34.7 % (42.0-52.0); HEMOGLOBIN 10.6 g/dL (14.0-18.0); IMM GRAN# 0.07 X1000 (0.0-0.04); IMM GRAN% 0.6 % (0.0-0.5); LYMPH# 2.32 X1000 (1.2-3.4); LYMPH% 19.4 % (20.5-51.1); MCH 28.2 PG (27-31); MCHC 30.5 g/dL (33-37); MCV 92.3 FL (81-99); MONO# 1.35 X1000 (0.11-0.59); MONO% 11.3 % (1.7-9.3); MPV 10.8 FL (7.4-10.4); NEUT# 7.94 X1000 (1.4-6.5); NEUT% 66.3 % (42.2-75.2); PLT 300 X1000 (130-400); RBC 3.76 XMIL (4.7-6.1); RDW 13.3 % (11.5-14.5); WBC 11.97 X1000 (4.8-10.8)
[2018-12-09 08:46] LABS: ALBUMIN 2.9 g/dL (3.5-5.0); CREATININE 2.9 mg/dL (0.7-1.2); PHOSPHORUS 3.8 mg/dL (2.7-4.5); POTASSIUM 5.1 mmol/L (3.5-5.1)
[2018-12-09] MEDS: APRESOLINE PO SCH ×3 (08:50→20:04)
[2018-12-09] MEDS: ASPIRIN PO SCH (08:51)
[2018-12-09] MEDS: LOPRESSOR PO SCH ×2 (08:51→22:06)
[2018-12-09] MEDS: NORVASC PO SCH ×2 (08:52→22:06)
[2018-12-09] MEDS: SENOKOT PO SCH (08:52)
[2018-12-09] MEDS: LACTULOSE PO SCH ×2 (08:57→22:05)
[2018-12-09] MEDS: MIRALAX PO SCH ×2 (08:58→22:06)
[2018-12-09] MEDS: HEPARIN SUBQ SCH ×2 (09:00→22:05)
--- NOTE | 2018-12-09 12:45 | Diag Imaging Result Doc PS360 ---
EXAM: CT ABDOMEN/PELVIS W/O CONTRAST HISTORY: abdominal pain TECHNIQUE: CT abdomen and pelvis without contrast COMPARISON: 03/23/2017 FINDINGS: There are large calcified subcarinal lymph nodes. No pleural effusions. There are many scattered hepatic and splenic granuloma. Small hepatic cyst. Spleen is not enlarged. There is sludge within the gallbladder. No calcified stones. No adjacent inflammation. Normal pancreas and adrenal glands. There is cortical thinning to each kidney and there is a 5.0 cm left renal cyst. No renal stones. No hydronephrosis. No aortic aneurysm. Moderate atherosclerosis. There is scoliosis with severe degenerative spine changes. No bowel obstruction. The prostate is enlarged measuring 6.3 cm in transverse diameter. There is a suprapubic catheter. Urinary bladder wall is thickened. The urinary bladder is not distended. Mildly enlarged pelvic lymph nodes. No ascites. Old injury to the left pelvis. IMPRESSION: 1.There is at least sludge within the gallbladder 2.Left renal cyst and there is renal cortical thinning 3.Suprapubic catheter with thickening of the wall of urinary bladder 4.Enlarged prostate 5.Mildly prominent pelvic nodes similar to the prior study This exam was performed using automated exposure control, adjustment of mA or kV according to patient size, and/or use of iterative reconstruction technique. Electronically signed by Bradnon Childs 12/09/2018 12:43 PM
--- NOTE | 2018-12-09 13:51 | PROGRESS NOTE ---
DATE: 12/09/2018 SUBJECTIVE: The patient continues to complain of abdominal bloating. He states that he had a bowel movement yesterday, but he is still complaining of pain. OBJECTIVE: Vital Signs: Temperature 98.1 degrees, blood pressure 151/63, heart rate 54, respirations 20, O2 saturation 97% on room air. General: This is a chronically ill-appearing, elderly male, lying in bed in no acute distress. Heart: S1, S2. Normal. Regular rate and rhythm. Lungs: Equal air entry bilaterally. No wheezing. No rales. No rhonchi. Abdomen: Positive bowel sounds. Soft. Mildly distended, nontender. Extremities: 2+ to 3+ edema. Neurologic: The patient is alert and oriented x3. No focal neurologic deficits noted. LABS: Creatinine 2.9. Sodium 138, potassium 5.1, chloride 108, CO2 18, glucose 106, phosphorus 3.8. White blood cell count 11, hemoglobin 10, hematocrit 34, platelets 300. ASSESSMENT AND PLAN: 1. Urinary tract infection secondary to Klebsiella. The repeat urine culture is showing no growth. Will defer to Dr. Marquez regarding antibiotic discontinuation. 2. Acute kidney injury on chronic kidney disease. Stable. The patient will follow up as outpatient for further workup. 3. Urinary retention status post suprapubic catheter placement. Stable. The patient will follow up with Dr. Rose as outpatient. 4. Monoclonal gammopathy of undetermined significance. The patient will be following up with Dr. Evangelista as outpatient for further assessment. 5. Constipation. The patient had a bowel movement yesterday. Continue with scheduled laxative therapy. 6. Abdominal pain: We will consult Gastroenterology. 7. Hypertension. Stable. 8. Chronic diastolic congestive heart failure. Stable. 9. Anemia. Stable. 10. Deep vein thrombosis prophylaxis. Continue on heparin. 11. Disposition: The patient will be discharged home once medically stable. cc: Dora Tadeo MD [facility]
[2018-12-09] MEDS ORDERED: GOLYTELY PO ONE (14:00)
--- NOTE | 2018-12-09 16:09 | NEPHROLOGY PROGRESS NOTE ---
DATE: 12/09/2018 SUBJECTIVE: Patient is sitting up in bed. He states he will try to eat a little breakfast. OBJECTIVE: Vital Signs: Temperature 98.4 degrees, pulse 54, respiratory rate 18, blood pressure 158/59. Intake 238 mL. Output 1.3 L. General: This is an elderly gentleman sitting up in bed. He is in no acute distress. HEENT: Normocephalic, atraumatic. ABDON. Neck: Supple without JVD. Cardiovascular: Regular rate and rhythm. No murmur or gallop. Pulmonary: He is clear bilaterally. Abdomen: Soft, with positive bowel sounds. He has a suprapubic catheter noted, with adequate urine output. Extremities: No clubbing, cyanosis. Trace edema. Integumentary: Skin is warm and dry. Neurologic: Grossly nonfocal. Lab Data: WBC of 11.9 hemoglobin 10.6. Sodium 138, potassium 5.1, CO2 18, creatinine 2.9 (2.8, 2.9, 2.9, 3.5). ASSESSMENT AND PLAN: 1. Chronic kidney disease stage 4. The patient had some acute renal injury during hospitalization. His creatinine is close to his historical baseline at 2.5. He has no indications for intervention other than his current treatment plan. We will continue to monitor him in the hospital and we will see him as an outpatient for followup. 2. Positive SPEP for monoclonal bands. Followed by Hematology/Oncology. Again, we will follow with the patient as an outpatient, dependent on their decisions. Dictated by GWENDOLYN Geronimo for Lopez Alcaraz MD cc: Lopez Alcaraz MD
--- NOTE | 2018-12-09 16:17 | GASTROENTEROLOGY CONSULTATION ---
DATE: 12/09/2018 ATTENDING PHYSICIAN: Dr. Tadeo. PRIMARY CARE DOCTOR: Dr. Hebert Doe. REASON FOR CONSULTATION: Abdominal pain and constipation. HISTORY OF PRESENT ILLNESS: Mr. Torres is an 82-year-old male, who was admitted on 12/01/2018 for chest pain and shortness of breath. On initial workup, he was noted to have mildly elevated troponins and was diagnosed with a UTI. He was treated for hypertensive urgency and UTI. During the course of hospital stay, he developed abdominal pain in the periumbilical region going to the left upper and lower quadrant. He has never had a colonoscopy or EGD done in the past. According to the patient, he got constipated in the hospital, was given lactulose with partial relief. Despite the use of laxatives, he has difficulty moving his bowels, and he feels like blocked in his colon. He has never had a colonoscopy in the past. The last 1 was 2 days ago. He continues on lactulose twice a day and MiraLAX twice a day and Jenny-Colace. Gastroenterology was consulted for further management. PAST MEDICAL HISTORY: Hypertensive heart disease. Chronic kidney disease with UTI. 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 PAST SURGICAL HISTORY: He has a suprapubic catheter placement. He has never had a colonoscopy done in the past. FAMILY HISTORY: Mother had history of diabetes mellitus. He has 3 sisters with diverticulitis and brother with lung disease, though he was a smoker. SOCIAL HISTORY: Patient lives alone. He denies history of any tobacco or illicit drugs. 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 ALLERGIES: No known drug allergies. MEDICATIONS IN THE HOSPITAL: Tylenol, albuterol/ipratropium, amlodipine, aspirin, heparin, hydralazine, hydrocodone/acetaminophen, labetalol, lactulose 30 mL p.o. b.i.d., cefepime 1 g every 12 hours, metoprolol 100 mg p.o. b.i.d., omeprazole 40 mg daily, Zofran 4 mg IV every 4 hours as needed, MiraLAX 17 g p.o. b.i.d., Senokot 2 tablets p.o. daily. I just switched him to a clear liquid diet. REVIEW OF SYSTEMS: Denies any fevers, rigors, or chills. His chest pain is getting better. His shortness of breath is getting better. Denies any nausea, vomiting, or vomiting blood. He does complain of constipation and abdominal discomfort and bloating. He does have history of arthritis. Denies any neurologic complaints. PHYSICAL EXAMINATION: Vital signs: Temperature of 98.1 degrees, pulse rate of 54, respiratory rate of 20, blood pressure 150/60, saturating 97% on room air. Body weight of 238 pounds, BMI of 34.1 kg/m2. General Appearance: Obese, lying in bed, in no acute distress. HEENT: Pale conjunctivae. No icterus. Pupils equal, react to light. Neck: Supple. Abdomen: Distended. There was some discomfort in the pelvic region, left lower quadrant. No rebound. Extremities: No cyanosis, clubbing. Neurologic: Neuro-jimenez, alert, awake and oriented x3. LABS: Hemoglobin and hematocrit is 10.2 and 34, white count of 11.97, platelet count of 300, MCV of 92.3. Sodium of 138, potassium 5.1, chloride 101, bicarbonate of 18, anion gap 12. BUN of 62, creatinine of 2.9, glucose of 106, calcium is 8, phosphorus 3.0, albumin of 2.9. Urinalysis: Small leukocytes. Moderate amount of blood. Positive protein. Urine electrophoresis showed monoclonal band of lambda, spasticity present consistent with Bence Blanca protein. Urine culture: No growth. Blood culture x2 negative after 5 days from 12/01/2018. Urine culture initially showed Klebsiella oxytoca resistant to ampicillin, cefazolin and Zosyn. IMAGING: He had a chest x-ray done yesterday which showed mild cardiomegaly. No definite acute pathology on plain radiograph. He had abdominal x-ray done on 12/07 which showed significant decreased amount of stool in the colon, mild scoliosis with degenerative spine changes, no organomegaly. He had a renal ultrasound done a few days ago that showed bilateral increased renal cortical echotexture nonspecific continued on medical renal disease and a simple left renal cyst measuring 5.[address] of the abdomen and pelvis done on 03/22/2017 showed lumbar degenerative changes, scattered borderline retroperitoneal inguinal lymph nodes, uncomplicated colonic diverticulosis. IMPRESSION AND PLAN: 1. Abdominal pain and worsening constipation. In this regard, we will put him on a clear liquid diet. We will start him on GoLYTELY. Will schedule him for colonoscopy tomorrow with Dr. Palacio. The risks, benefits, indications, and alternatives were discussed with the patient. All questions answered. 2. Diverticulosis in the colon. Patient will continue to avoid excessive corn, nuts, and seeds in diet. He will be on a high fiber diet. 3. Urinary tract infection with Klebsiella oxytoca. He was seen by Dr. Marquez and he is on cefepime twice a day. 4. Acute kidney injury on chronic kidney disease. Nephrology is following. Urinary retention status post suprapubic catheter placement. Dr. Rose is following. Monoclonal gammopathy of undetermined significance is followed by Dr. Cristel Evangelista. 5. Hypertension the patient is being treated by the primary care team. 6. Constipation. We will continue MiraLAX 17 g p.o. b.i.d. and lactulose 30 mL p.o. b.i.d. 7. Chronic diastolic congestive heart failure. Being managed by primary team. 8. Deep vein thrombosis prophylaxis with heparin. 9. Gastrointestinal prophylaxis with Prilosec once daily. 10. Obesity. Patient counseled to lose weight. 11. Chronic back pain and degenerative disk disease, aware. 12. Primary care team has ordered a CT scan of the abdomen and pelvis. We will follow the results. The above plans discussed with the patient, and all questions were answered. Please call us with any further questions. cc: MD Hebert García MD Katherine Takundwa, MD MTDD
--- NOTE | 2018-12-09 18:32 | INFECTIOUS DISEASE PROGRESS NO ---
DATE: 12/09/2018 PRESENT ILLNESS: The patient has a Klebsiella urinary tract infection. It may be responsible for the patient's costovertebral angle pain on both sides that he has been getting recently, and it also may be contributing to worsening of his renal function. MEDICATIONS: The patient is on cefepime at a reduced dose because of the patient's end-stage renal disease. PHYSICAL EXAMINATION: Vital Signs: Temperature is 98.1 degrees, pulse 54, respirations 20, blood pressure 151/63. General: This is an obese, elderly male. He is in no acute distress. Head, Eyes, Ears, Nose, Throat: He can hear my spoken words and see near objects. He does not have any drainage coming from his nose or ears. Neck: He can move his neck without having pain. Lungs: Clear to auscultation. Cardiovascular: Heart rate is regular. Abdomen: Abdomen and flanks soft and nontender. The patient does have a suprapubic tube in place also. Neurologic: The patient is awake. He can move his extremities. There is no tremor. LAB AND X-RAY: The patient's creatinine is 2.9. GFR is 25. A repeat urine culture is sterile. The patient's urine culture on 12/01/2018 grew Klebsiella. Blood culture on 12/01/2018 was negative. The patient recently had a repeat urine culture which is sterile. ASSESSMENT AND PLAN: Patient has urinary tract infection. It may be contributing to his costovertebral angle pain and worsening renal function. My plan is to continue cefepime in its reduced dose. COMORBIDITIES: He is elderly and he has end-stage renal disease. cc: Sandip Marquez MD
[2018-12-10] MEDS: FLEET MINERAL OIL ENEMA PR SCH ×4 (01:22→23:10)
[2018-12-10] MEDS: MAXIPIME 1 GM in NS 50 ML IV SCH ×2 (03:12→14:03)
[2018-12-10] MEDS: PRILOSEC PO SCH (06:16)
[2018-12-10] MEDS: APRESOLINE PO SCH ×3 (08:39→17:26)
[2018-12-10] MEDS: ASPIRIN PO SCH (08:40)
[2018-12-10] MEDS: LACTULOSE PO SCH ×2 (08:40→22:59)
[2018-12-10] MEDS: NORVASC PO SCH ×2 (08:40→22:59)
[2018-12-10] MEDS: SENOKOT PO SCH (08:40)
[2018-12-10] MEDS: LOPRESSOR PO SCH ×2 (08:40→22:59)
[2018-12-10] MEDS: HEPARIN SUBQ SCH ×2 (08:41→22:58)
[2018-12-10] MEDS: MIRALAX PO SCH ×2 (08:42→22:59)
[2018-12-10 10:53] LABS: ALBUMIN 3.1 g/dL (3.5-5.0); CALCIUM 8.6 mg/dL (8.8-10.2); PHOSPHORUS 3.7 mg/dL (2.7-4.5); POTASSIUM 5.3 mmol/L (3.5-5.1)
[2018-12-10] MEDS: TYLENOL PO PRN (13:28)
[2018-12-10] MEDS ORDERED: SORBITOL PO ONE (14:17)
--- NOTE | 2018-12-10 16:08 | PROGRESS NOTE ---
DATE: 12/10/2018 SUBJECTIVE: The patient is resting comfortably in bed. He states that he could not tolerate the colonoscopy prep and he was given an enema instead. He reports that he has not had a bowel movement yet. OBJECTIVE: Vital Signs: Temperature 98 degrees, blood pressure 155/64, heart rate 60, respirations 18, O2 saturation 98% on room air. General: This is a morbidly obese male lying in bed in no acute distress. Heart: S1, S2 normal. Bradycardic. Lungs: Clear to auscultation bilaterally. Abdomen: Positive bowel sounds, mildly distended, nontender. Extremities: 2+ edema. Neuro: The patient is alert and oriented x4. LABS: Sodium 139, potassium 5.3, chloride 108, CO2 18, BUN 59, creatinine 3, glucose 121, albumin 3.1. ASSESSMENT AND PLAN: 1. Urinary tract infection secondary to Klebsiella. Continue on the current antibiotic regimen as directed by Dr. Marquez. 2. Chronic kidney disease. Stable. 3. Urinary retention status post suprapubic catheter placement. Stable. 4. Constipation. The patient's colonoscopy was canceled since the patient could not tolerate the prep. Will continue with laxative therapy. GI is following. 5. Hypertension. Stable. 6. Chronic diastolic congestive heart failure. Stable. 7. Anemia. Stable. 8. Deep vein thrombosis prophylaxis. 9. Monoclonal gammopathy of undetermined significance. The patient will follow up with Hematology and Nephrology as outpatient. 10. Hyperkalemia. Monitor. 11. Metabolic acidosis. Monitor. 12. Deep vein thrombosis prophylaxis. Continue on heparin. 13. Disposition. The patient will be discharged home with home health once medically stable. cc: Dora Tadeo MD [facility]
--- NOTE | 2018-12-10 18:59 | INFECTIOUS DISEASE PROGRESS NO ---
DATE: 12/10/2018 PRESENT ILLNESS: The patient has a symptomatic Klebsiella urinary tract infection which may be contributing to his costovertebral angle pain and also his worsening renal function. MEDICATIONS: The patient is receiving cefepime at a reduced dose because of the patient's end- stage renal disease. PHYSICAL EXAMINATION: Vital Signs: Temperature is 99 degrees, pulse 60, respirations 18, blood pressure 155/64. General: This is an obese, elderly male. He is in no acute distress. Head, Eyes, Ears, Nose, Throat: He can hear my spoken words and see near objects. He does not have any white patches on his tongue. Neck: He does not have any pain when he moves his neck. Lungs: Clear to auscultation. Cardiovascular: Heart rate is regular. Abdomen: Abdomen and flanks are soft and nontender. The patient has a suprapubic catheter in place, also. Neurologic: The patient is awake. He can ambulate. There is no tremor. Extremities: He does have bilateral leg edema. LAB AND X-RAY: Creatinine is 3. GFR is 24. ASSESSMENT AND PLAN: Patient has Klebsiella urinary tract infection. Hopefully, he will be discharged soon. I have, through the computer, gotten a prescription for Levaquin 250 mg daily for 10 days, and also I have requested the patient come to my office in 10 days. The patient will be examined and then his urine culture will be repeated after he has been off his antibiotic for about a week. If he has a return of the same infection, he may require Levaquin, but for a longer period of time. COMORBIDITIES: The patient is elderly and he has end-stage renal disease. cc: Sandip Marquez MD
--- NOTE | 2018-12-10 20:45 | NEPHROLOGY PROGRESS NOTE ---
DATE: 12/10/2018 SUBJECTIVE: Patient states that he has been unable to take the GoLYTELY. Apparently he is to have a colonoscopy either this or Thursday. OBJECTIVE: Vital Signs: Temperature 99 degrees, pulse 60, respiratory rate 18, blood pressure 155/64, intake 1.1 L, output 2.4 L via Poe catheter. General: Elderly gentleman resting in bed. He is awake and alert, no acute distress. HEENT: Normocephalic, atraumatic. ABDON. Neck: Supple without JVD. Cardiovascular: Regular rate and rhythm. Pulmonary: Clear bilaterally. Abdomen: Soft, positive bowel sounds. : Poe catheter. Extremities: No clubbing, cyanosis, trace edema. Integument: Skin is warm and dry. LAB DATA: Pending. ASSESSMENT AND PLAN: 1. Chronic kidney disease. Again his renal function has been stable over several days. He has no indications for intervention otherwise. He can be discharged at the discretion of the primary, will continue follow. 2. Positive SPEP with monoclonal bands. We were considering renal biopsy on the patient as an outpatient. However if he remains in the hospital over the weekend and Thursday we will go ahead and do that here so we can have some definitive information prior to discharge. 3. Abdominal pain. Patient is to undergo colonoscopy per GI. 4. Electrolytes, acid-base balance. These have been stable. Dictated by GWENDOLYN Geronimo for Lopez Alcaraz MD cc: Lopez Alcaraz MD
--- NOTE | 2018-12-10 21:31 | PROVIDER PROGRESS NOTE ---
Progress Note SUBJECTIVE: No acute overnight events. Patient could not tolerate prep overnight and only drank a small amount. He denies CP, SOB, BM, rectal bleeding. He is amendable to trying to do colonoscopy again with Miralax prep on Thursday. OBJECTIVE: Last Vital Signs Temp 98.2 F 12/10/18 20:00 Pulse 57 L 12/10/18 20:00 Resp 20 12/10/18 20:00 BP 153/54 12/10/18 20:00 Pulse Ox 98 12/10/18 20:00 Height 5 ft 10 in Weight 238 lb GEN: awake, alert, HAD HEENT: anicteric, MMM NECK: supple, no jvd CV: RRR, no murmurs ABD: mild distension, soft, NT, NABS with suprapubic catheter EXT: no cce NEURO: nonfocal 12/10/18 10:13 Sodium 139 Potassium 5.3 H Chloride 108 H Carbon Dioxide 18 L BUN 59 H Creatinine 3.0 H CTAP 12/09/2018 IMPRESSION: 1.There is at least sludge within the gallbladder 2.Left renal cyst and there is renal cortical thinning 3.Suprapubic catheter with thickening of the wall of urinary bladder 4.Enlarged prostate 5.Mildly prominent pelvic nodes similar to the prior study IMPRESSION AND PLAN: Mr. Francisco J Torres is a 82 year old man with HTN, chronic back pain, dCHF, admitted with UTI, MAGGIE on CKD, and constipation. He denies abdominal pain currently. #Constipation - will plan on Miralax prep on Thursday with plans on colonoscopy on Thursday - continue bowel regimen, mineral oil enemas - full liquid diet tomorrow - clears on Thursday #Anemia: noted #UTI: on abx per ID #MAGGIE on CKD: s/p suprapubic catheter; urology following #MGUS: noted #dCHF: defer mgmt to primary team Will follow with you. Please call with questions
[2018-12-11] MEDS: MAXIPIME 1 GM in NS 50 ML IV SCH ×2 (02:10→15:47)
[2018-12-11] MEDS: PRILOSEC PO SCH (06:25)
[2018-12-11] MEDS: FLEET MINERAL OIL ENEMA PR SCH ×3 (08:05→23:04)
[2018-12-11 08:40] LABS: ALBUMIN 3.2 g/dL (3.5-5.0); CALCIUM 8.7 mg/dL (8.8-10.2); PHOSPHORUS 3.9 mg/dL (2.7-4.5); POTASSIUM 5.7 mmol/L (3.5-5.1)
[2018-12-11 09:31] LABS: HEMATOCRIT 36.3 % (42.0-52.0); HEMOGLOBIN 11.1 g/dL (14.0-18.0); MCH 28.7 PG (27-31); MCHC 30.6 g/dL (33-37); MCV 93.8 FL (81-99); MPV 10.6 FL (7.4-10.4); RBC 3.87 XMIL (4.7-6.1); RDW 13.2 % (11.5-14.5); WBC 11.88 X1000 (4.8-10.8)
[2018-12-11] MEDS: LOPRESSOR PO SCH ×2 (10:24→23:05)
[2018-12-11] MEDS: MIRALAX PO SCH ×2 (10:24→23:04)
[2018-12-11] MEDS: APRESOLINE PO SCH ×3 (10:24→17:46)
[2018-12-11] MEDS: NORVASC PO SCH ×2 (10:24→23:06)
[2018-12-11] MEDS: LACTULOSE PO SCH ×2 (10:24→23:05)
[2018-12-11] MEDS: SENOKOT PO SCH (10:24)
[2018-12-11] MEDS: ASPIRIN PO SCH (10:25)
[2018-12-11] MEDS: HEPARIN SUBQ SCH ×2 (10:25→23:05)
[2018-12-11] MEDS ORDERED: D50W SYRINGE IV ONE (10:40)
[2018-12-11] MEDS ORDERED: ALBUTEROL 0.5% INH CONC FOR HYPERKALEMIA INH ONE (10:40)
[2018-12-11] MEDS ORDERED: HUMULIN R IV ONE (10:41)
[2018-12-12] MEDS: MAXIPIME 1 GM in NS 50 ML IV SCH ×2 (02:58→15:31)
[2018-12-12] MEDS: PRILOSEC PO SCH (06:04)
[2018-12-12 07:26] LABS: HEMATOCRIT 33.9 % (42.0-52.0); HEMOGLOBIN 10.3 g/dL (14.0-18.0); MCH 29.2 PG (27-31); MCHC 30.4 g/dL (33-37); MPV 10.6 FL (7.4-10.4); RBC 3.53 XMIL (4.7-6.1); RDW 13.4 % (11.5-14.5); WBC 11.56 X1000 (4.8-10.8)
[2018-12-12 07:36] LABS: CALCIUM 8.3 mg/dL (8.8-10.2); PHOSPHORUS 3.7 mg/dL (2.7-4.5); POTASSIUM 5.5 mmol/L (3.5-5.1)
--- NOTE | 2018-12-12 08:37 | PROGRESS NOTE ---
DATE: 12/11/2018 SUBJECTIVE: The patient states that he has finally started having bowel movements. He has no complaints. OBJECTIVE: Vital Signs: Temperature 98 degrees, blood pressure 137/55, heart rate 58, respirations 22, O2 saturation 95% on room air. General: This is a chronically ill-appearing elderly male lying in bed, in no acute distress. Heart: S1, S2 normal. Bradycardic. Lungs: Clear to auscultation bilaterally. No wheezing. No rales. No rhonchi. Abdomen: Positive bowel sounds. Soft, nontender, nondistended. Extremities: 2+ edema bilaterally. Neurologic: The patient is alert and oriented x4. LABORATORY DATA: White blood cell count 11, hemoglobin 11, hematocrit 36, platelets 331,000. Sodium 139, potassium 5.3, chloride 109, CO2 18, BUN 58, creatinine 3, glucose 86. ASSESSMENT AND PLAN: 1. Urinary tract infection secondary to Klebsiella. Continue with antibiotic therapy. 2. Urinary retention status post suprapubic catheter placement. Stable. 3. Constipation. Improved. Continue with laxative therapy. The patient is scheduled to undergo a colonoscopy on Thursday. GI is following. 4. Chronic diastolic congestive heart failure. Stable. 5. Chronic kidney disease stage 4 . Stable. 6. Hyperkalemia. We will continue to monitor. 7. Metabolic acidosis. Stable. 8. Monoclonal gammopathy of undetermined significance. The patient will follow up with Hematology and Nephrology as outpatient. 9. Deep vein thrombosis prophylaxis. Continue on heparin. 10. Continue with physical therapy. cc: Dora Tadeo MD [facility]
[2018-12-12] MEDS: LOPRESSOR PO SCH (08:41)
[2018-12-12] MEDS: NORVASC PO SCH ×2 (08:41→20:22)
[2018-12-12] MEDS: ASPIRIN PO SCH (08:41)
[2018-12-12] MEDS: SENOKOT PO SCH (08:41)
[2018-12-12] MEDS: HEPARIN SUBQ SCH ×2 (08:41→10:23)
[2018-12-12] MEDS: LACTULOSE PO SCH (08:41)
[2018-12-12] MEDS: MIRALAX PO SCH (08:41)
[2018-12-12] MEDS: APRESOLINE PO SCH ×3 (08:41→20:22)
[2018-12-12] MEDS: FLEET MINERAL OIL ENEMA PR SCH (08:42)
--- NOTE | 2018-12-12 10:40 | PROVIDER PROGRESS NOTE ---
Progress Note SUBJECTIVE: No acute overnight events. Patient reports having 3 BMs yesterday. He reports significant improvement in constipation. No N/V/F, CP, SOB. Tolerating full liquids. OBJECTIVE: Last Vital Signs Temp 98.0 F 12/12/18 08:00 Pulse 49 L 12/12/18 08:00 Resp 16 12/12/18 08:00 BP 133/86 12/12/18 08:00 Pulse Ox 97 12/12/18 08:00 Height 5 ft 10 in Weight 238 lb GEN: awake, alert, HAD HEENT: anicteric, MMM NECK: supple, no jvd CV: RRR, no murmurs ABD: mild distension, soft, NT, NABS with suprapubic catheter EXT: no cce NEURO: nonfocal LABS: 12/12/18 12/12/18 07:00 07:00 WBC 11.56 H Hgb 10.3 L Plt Count 301 Sodium 137 Potassium 5.5 H Chloride 108 H Carbon Dioxide 18 L BUN 56 H Creatinine 3.0 H Glucose 97 Calcium 8.3 L Phosphorus 3.7 Albumin 3.0 L IMPRESSION AND PLAN: Mr. Francisco J Torres is a 83 year old man with HTN, chronic back pain, dCHF, admitted with UTI, MAGGIE on CKD, and constipation. He denies abdominal pain currently. Constipation improving. Plan for diagnostic colonoscopy tomorrow. #Constipation - clear liquid diet, Miralax prep today with plans on colonoscopy tomorrow with Dr. Bernal - NPO after MN #Anemia: noted; stable; no overt bleeding #UTI: on abx per ID #MAGGIE on CKD: s/p suprapubic catheter; urology following #MGUS: noted #dCHF: defer mgmt to primary team #Hyperkalemia: correct K #Low bicarb: ? 2/2 to acute renal insufficiency Will follow with you. Please call with questions
[2018-12-12] MEDS: VELTASSA PO SCH (12:40)
--- NOTE | 2018-12-12 14:16 | Diag Imaging Result Doc PS360 ---
EXAM: CHEST-PORTABLE 12/12/2018 HISTORY: dyspnea TECHNIQUE: AP upright portable at 1404 COMMENT: The inspiration is less optimal than on 12/08/2018. Otherwise, there has been no significant change. IMPRESSION: Poor inspiration. Electronically signed by Agus Cormier 12/12/2018 2:13 PM
--- NOTE | 2018-12-12 14:42 | PROGRESS NOTE ---
DATE: 12/12/2018 SUBJECTIVE: The patient is resting comfortably in bed. He states that he has been able to have several good bowel movements. He denies having any nausea or vomiting. OBJECTIVE: Vital Signs: Temperature 98.7 degrees, blood pressure 144/56, heart rate 41, respirations 18, O2 saturation is 100% on room air. Intake 1.3 L, output 1.4 L. General: This is a morbidly obese male lying in bed in no acute distress. Head: Normocephalic, atraumatic. Heart: S1, S2 normal. Bradycardic. Lungs: Clear to auscultation bilaterally. No wheezing. No rales. No rhonchi. Abdomen: Positive bowel sounds. Soft, nontender, nondistended. Extremities: With 2+ edema bilaterally. Neurologic: The patient is alert and oriented x4. LABORATORY DATA: White blood cell count 11, hemoglobin 10, hematocrit 33, platelets 301,000. Sodium 137, potassium 5.5, chloride 108, CO2 of 18, BUN 56, creatinine 3, glucose 97, albumin 3. ASSESSMENT AND PLAN: 1. Urinary tract infection secondary to Klebsiella. Continue on cefepime. 2. Urinary retention status post suprapubic catheter placement. Stable. 3. Hyperkalemia. Will start Veltassa. 4. Metabolic acidosis. Will start sodium bicarbonate and monitor the patient's response. 5. Chronic kidney disease stage 4. Stable. 6. Constipation. Improved. The patient is scheduled to undergo a colonoscopy tomorrow. 7. Chronic diastolic congestive heart failure. Stable. 8. Monoclonal gammopathy of undetermined significance. The patient will undergo further workup as outpatient. 9. Deep vein thrombosis prophylaxis. The patient's heparin is on hold in anticipation of a colonoscopy tomorrow. cc: Dora Tadeo MD [facility]
[2018-12-12] MEDS ORDERED: DULCOLAX PO ONE (15:00)
[2018-12-12] MEDS: SODIUM BICARBONATE PO SCH ×2 (15:30→20:22)
[2018-12-12] MEDS ORDERED: SODIUM BICARBONATE 8.4% IV PUSH ONE (15:53)
[2018-12-12] MEDS ORDERED: ALBUTEROL 0.5% INH CONC FOR HYPERKALEMIA INH ONE (15:53)
[2018-12-12] MEDS ORDERED: D50W SYRINGE IV ONE (15:53)
[2018-12-12] MEDS ORDERED: HUMULIN R IV ONE (15:54)
[2018-12-12] MEDS ORDERED: NS 250 ML IV ONE (15:56)
[2018-12-12] MEDS ORDERED: MIRALAX PO ONE (18:00)
[2018-12-13] MEDS: MAXIPIME 1 GM in NS 50 ML IV SCH ×2 (05:39→16:20)
[2018-12-13] MEDS: PRILOSEC PO SCH (05:43)
[2018-12-13 07:18] LABS: HEMATOCRIT 33.3 % (42.0-52.0); HEMOGLOBIN 10.2 g/dL (14.0-18.0); MCH 29.2 PG (27-31); MCHC 30.6 g/dL (33-37); MCV 95.4 FL (81-99); MPV 10.5 FL (7.4-10.4); RBC 3.49 XMIL (4.7-6.1); RDW 13.6 % (11.5-14.5); WBC 10.35 X1000 (4.8-10.8)
--- NOTE | 2018-12-13 07:18 | EKG Report ---
Test Performed on : 12/12/2018 2:49:52 PM Test Reason : bradycardia Blood Pressure : / mmHG Vent. Rate : 048 BPM Atrial Rate : 048 BPM P-R Int : 170 ms QRS Dur : 086 ms QT Int : 478 ms P-R-T Axes : 048 026 121 degrees QTc Int : 427 ms Sinus bradycardia. with sinus arrhythmia. ST & T wave abnormality, consider lateral ischemia Abnormal ECG When compared with ECG of 02-DEC-2018 09:43, Vent. rate has decreased BY [address] no longer depressed in Inferior leads ST no longer depressed in Anterolateral leads QT has shortened Confirmed by Easton CEJA, Gamal Resendiz ([id number]) on 12/13/2018 9:28:24 AM
[2018-12-13 08:00] LABS: ALBUMIN 3.2 g/dL (3.5-5.0); CALCIUM 8.4 mg/dL (8.8-10.2); PHOSPHORUS 3.3 mg/dL (2.7-4.5); POTASSIUM 5.3 mmol/L (3.5-5.1)
[2018-12-13] MEDS: NORVASC PO SCH ×2 (09:45→22:03)
[2018-12-13] MEDS: SODIUM BICARBONATE PO SCH ×2 (09:45→22:03)
[2018-12-13] MEDS: APRESOLINE PO SCH ×3 (09:45→22:02)
--- NOTE | 2018-12-13 10:16 | PROGRESS NOTE ---
DATE: 12/13/2018 SUBJECTIVE: Mr. Francisco J Torres is an 83-year-old male who had a birthday yesterday. He is resting comfortably in bed. He plans on having a colonoscopy today, and he feels like he has had his bowels cleaned out well. He denies any nausea, vomiting or diarrhea at this time. No abdominal pain. OBJECTIVE: Vital signs: Temperature is 97.9, heart rate 58, respiratory rate 16, blood pressure 153/50. O2 saturation is 99% on room air. General: Mr. Francisco J Torres is an 83-year-old male. He is in no acute distress. He is able to answer questions appropriately. Cardiovascular: S1, S2. Bradycardic rate and rhythm. No rubs, gallops or murmurs. He has 2 to 3+ lower extremity edema bilaterally. Negative for JVD or carotid bruits. Pulmonary: Clear to auscultation with bilateral breath sounds. No accessory muscle use or work of breathing noted. Tolerating room air. GI: Soft, round, nondistended. Positive bowel sounds x4. Neurologic: Alert and oriented x3. Follows commands. Sensory is intact. DIAGNOSTIC DATA: White blood cells 10,000, hemoglobin 10, hematocrit 33, platelet count 284. Sodium is 140, potassium 5.3, BUN is 53, creatinine 3.0, glucose 114, calcium 8.4, albumin 3.2. IMAGING: Last chest x-ray was yesterday. It just showed poor inspiration, otherwise no acute findings. EKG yesterday was sinus bradycardia with sinus arrhythmia and rate was 48 at that time. ASSESSMENT AND PLAN: 1. Hypertensive urgency with hypertensive heart disease on admission, since has resolved. He had developed some bradycardia, so the beta jacob has been held. Other antihypertensives currently are Norvasc 5 mg p.o. twice daily, Apresoline 100 mg p.o. t.i.d. Last night's beta jacob has been held and this morning has been held. Heart rate still in the 50s. 2. Urinary tract infection from Klebsiella oxytoca. Antibiotics include cefepime. White blood cell count is 10,000. Afebrile. 3. Urinary retention with full urethral obstruction from benign prostatic hypertrophy, now with a suprapubic catheter that was placed by Dr. Rose that is currently stable with clear yellow urine output. Kidney function has stabilized as well. 4. Acute kidney injury on chronic kidney disease stage 4. Currently baseline. Creatinine since he has been here has been around 2.9 to 3.0, prior to that was in the 2's. 5. Hyperkalemia. Continue on veltassa. Potassium went from 5.7 yesterday down to 5.3 today. 6. Metabolic acidosis. Continue sodium bicarbonate supplementation. Bicarb is improved to 20, it was 18 yesterday. 7. Constipation. Improved. Colonoscopy is planned for today. 8. Chronic diastolic congestive heart failure. Stable. 9. Monoclonal gammopathy of undetermined significance. Workup will be done as outpatient. 10.DVT prophylaxis. He has been on heparin, but that is on hold due to colonoscopy today. 11.Chronic anemia. Stable. Dictated by GWENDOLYN Rucker for Dora Tadeo MD cc: GWENDOLYN Rucker MD I performed a face to face encounter on the patient. I reviewed all labs on the patient. I agree with the progress note as dictated. The patient should be stable for discharge home tomorrow with home health. THOMAS
[2018-12-13] MEDS ORDERED: DIPRIVAN 1% ONE (11:39)
[2018-12-13 14:28] LABS: INR 1.03; PROTIME 14.3 Seconds (11.0-16.0)
[2018-12-13 14:29] LABS: PTT 31.4 Seconds (22.3-41.8)
[2018-12-13] MEDS: VELTASSA PO SCH (15:00)
[2018-12-13] MEDS: HEPARIN SUBQ SCH (16:20)
--- NOTE | 2018-12-13 16:27 | OPERATIVE NOTE ---
PROCEDURE DATE: 12/13/2018 ATTENDING PHYSICIAN: Dr. Tadeo. PRIMARY CARE DOCTOR: Dr. Hebert Doe. TITLE OF PROCEDURE: Colonoscopy with snare polypectomy of ascending colon polyps. PREOPERATIVE DIAGNOSES: 1. Constipation. 2. Anemia. POSTOPERATIVE DIAGNOSES: 1. Stool throughout the colon, fair prep. 2. Diverticulosis in the descending and sigmoid colon. 3. Internal hemorrhoids grade 2 on retroflexion. 4. Evidence of retained stool in the cecum which could not be cleared so cecum could not be visualized. There was evidence of 2 polyps in the ascending colon measuring about 1 to 2 cm each, removed using snare cautery polypectomy. ESTIMATED BLOOD LOSS: None. COMPLICATIONS: None. ANESTHESIA: Monitored anesthesia care per the anesthesiologist. SPECIMENS: Two ascending colon polyps. DESCRIPTION OF PROCEDURE: After informed consent, the patient explained the risks, benefits, indications, and alternatives to the procedure, the patient was prepared for a colonoscopy. The risks of the procedure, including infection, bleeding, pain, trauma to the surrounding structures, perforation, were explained the patient, among others and he acknowledged and agreed to proceed. The patient was brought to the OR. He was turned in the left lateral position. Rectal exam was performed, which revealed normal rectal tone. No masses felt. No blood on the examining finger. The colonoscope was introduced through anus and traversed all the way to the cecum. Cecum was identified using landmarks like IC valve. The cecal area could not be completely cleared. It had a moderate amount of retained stool which was lavaged. We could not visualize the appendiceal orifice. There was evidence of stool throughout the colon which was lavaged. There was evidence of 2 polyps in the ascending colon, 1 to 2 cm. These were removed using snare cautery polypectomy and retrieved. There was evidence of diverticulosis in the descending and sigmoid colon mild to moderate degree. There was evidence of internal hemorrhoids grade 2 on retroflexion. The air was withdrawn. The patient tolerated the procedure well and will be monitored in the OR in stable condition. RECOMMENDATIONS: 1. Patient will be on a full liquid diet, advance as tolerated. 2. Patient will be started on MiraLAX 17 g p.o. b.i.d. 3. We will hold the patient's aspirin and heparin for 1 day in order to reduce the risk of post polypectomy bleeding. 4. We will see the patient back in the clinic in 4 weeks of discharge to discuss the pathology results. The patient will need repeat a colonoscopy in 1 year with 2 day prep to evaluate the colon for any kind of remnant polyps or lesions. 5. Further recommendations pending the hospital course. cc: MD Hebert García MD
--- NOTE | 2018-12-13 18:44 | INFECTIOUS DISEASE PROGRESS NO ---
DATE: 12/13/2018 PRESENT ILLNESS: The patient has symptomatic Klebsiella urinary tract infection. MEDICATIONS: The patient is receiving cefepime with the dose reduced because of the patient's end- stage renal disease. PHYSICAL EXAMINATION: Vital Signs: Temperature is 98.2 degrees, pulse 64, respirations 19, blood pressure 155/64. General: This is an obese, elderly male. He is in no acute distress. He had returned today from having a colonoscopy. Head/eyes/ears/nose/throat: He can hear my spoken words and see near objects. He does not have any white patches on his tongue. Neck: He does not have any pain when he moves his neck. Lungs: Clear to auscultation. Cardiovascular: Heart rate is irregular. Abdomen: Soft and nontender. The patient does have a suprapubic catheter in place. The site is not draining. Neurologic: Patient is alert after his colonoscopy. He can move his extremities. There is no tremor. LAB AND X-RAY: The creatinine is 3, GFR is 24. CBC shows a white count of 10,350, hemoglobin is 9.9, and platelet count is 284,000. The patient's colonoscopy postoperative diagnosis included diverticulosis and internal hemorrhoids. ASSESSMENT AND PLAN: The patient has a symptomatic Klebsiella urinary tract infection. He will require 7 more days of treatment with Levaquin to complete a 14 day treatment total. COMORBIDITIES: The patient is elderly and he has end-stage renal disease. cc: Sandip Marquez MD
[2018-12-13] MEDS: COREG PO SCH (22:03)
[2018-12-14] MEDS: MAXIPIME 1 GM in NS 50 ML IV SCH ×2 (05:01→15:02)
[2018-12-14] MEDS: PRILOSEC PO SCH (06:53)
[2018-12-14 07:50] LABS: HEMATOCRIT 32.8 % (42.0-52.0); MCH 28.7 PG (27-31); MCHC 30.5 g/dL (33-37); MCV 94.3 FL (81-99); MPV 10.8 FL (7.4-10.4); RBC 3.48 XMIL (4.7-6.1); RDW 13.6 % (11.5-14.5); WBC 10.81 X1000 (4.8-10.8)
[2018-12-14 08:09] LABS: POTASSIUM 5.5 mmol/L (3.5-5.1)
[2018-12-14 08:10] LABS: ALBUMIN 2.9 g/dL (3.5-5.0)
[2018-12-14] MEDS: COREG PO SCH (10:18)
[2018-12-14] MEDS: APRESOLINE PO SCH ×2 (10:18→15:03)
[2018-12-14] MEDS: NORVASC PO SCH (10:18)
[2018-12-14] MEDS: SODIUM BICARBONATE PO SCH (10:19)
[2018-12-14] MEDS: VELTASSA PO SCH (13:25)
--- NOTE | 2018-12-14 13:59 | Diag Imaging Result Doc PS360 ---
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 TECHNIQUE: CT-guided biopsy of the left kidney COMMENT: The risks and benefits the procedure including the possibility of bleeding, infection, reaction to lidocaine were discussed with the patient and he agreed to the procedure. Following sterile preparation the skin posteriorly and administration of 1% lidocaine to the skin and deeper soft tissues, a 18-gauge coaxial Temno core biopsy needle was employed to obtain seven cores from the lower pole of the left kidney. There are no immediate complications. The patient tolerated the procedure well. The specimen is judged to be adequate by Dr. Carrera. IMPRESSION: Successful CT-guided biopsy of the left kidney. Electronically signed by Agus Cormier 12/14/2018 1:57 PM
--- NOTE | 2018-12-14 14:02 | NEPHROLOGY PROGRESS NOTE ---
DATE: 12/14/2018 SUBJECTIVE: He states he is feeling well. He underwent biopsy last evening without consequence. OBJECTIVE: Vital Signs: Blood pressure 161/57, heart rate 59, respiration 18, afebrile. General: Elderly man in no acute distress. Skin: Warm and dry. Conjunctivae are pink. Neck: Neck veins are not distended. Heart: Regular. Lungs: Equal. No crackles. Abdomen: Soft, nontender. Bowel sounds present. Extremities: No edema, clubbing, or cyanosis. IMPRESSION AND PLAN: Chronic kidney disease. His creatinine has been stable since admission. He underwent kidney biopsy yesterday to define the importance of his recently discovered monoclonal band vis-a-vis his kidney function. He does have moderate hyperkalemia but stable in the mid 5's. Moderate metabolic acidosis. No changes. cc: Lopez Alcaraz MD
[2018-12-14 16:23] VITALS: BP 138/74
[2018-12-15] MEDS ORDERED: ASPIRIN PO SCH (09:00)
--- NOTE | 2018-12-15 10:12 | DISCHARGE SUMMARY ---
ADMISSION DATE: 12/01/2018 DISCHARGE DATE: 12/14/2018 DISCHARGE DISPOSITION: Home with home care. DISCHARGE CONDITION: Patient is hemodynamically stable. He has been provided basic metabolic panel slip to get a repeat kidney function done within 5 days. He is going home on suprapubic catheter, and he has home care being set up. DISCHARGE DIAGNOSES: 1. Chest pain and shortness of breath in the setting of acute heart failure with preserved ejection fraction exacerbation. 2. Hypertensive emergency. 3. Bilateral pulmonary edema. 4. Acute kidney injury on chronic kidney disease stage 4, hyperkalemia, metabolic acidosis in the setting of chronic kidney disease. 5. Acute cystitis and urinary retention with Klebsiella oxytoca urinary tract infection. 6. Acute urinary retention and severe urethral stricture because of severe benign prostatic hypertrophy requiring suprapubic catheterization. 7. Monoclonal gammopathy of undetermined significance. 8. Normocytic anemia in the setting of chronic kidney disease requiring colonoscopy with ascending colon polyps and polypectomy. 9. Constipation. OTHER DIAGNOSES: 1. History of essential hypertension. 2. History of medication noncompliance. 3. History of chronic kidney disease. 4. 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 CONSULTATIONS DURING HOSPITALIZATION: 1. Cardiology Dr. Teixeira. 2. Nephrology Dr. Alcaraz. 3. Urology, Dr. Thomas and Dr. Rose. 4. Oncology Dr. Evangelista. 5. Infectious Disease, Dr. Marquez. 6. Gastroenterology, Dr. Bernal. 7. Social Work for home care. DISCHARGE MEDICATIONS: 1. Aspirin 81 mg daily 30 tablets have been prescribed. 2. Carvedilol 3.125 mg b.i.d. 60 tablets have been prescribed. 3. Levofloxacin 250 mg daily 10 tablets have been prescribed. 4. Amlodipine 10 mg daily 60 tablets have been prescribed. 5. Omeprazole 20 mg daily, 30 capsules have been prescribed. 6. Tylenol 650 mg p.o. q.6 hours as needed for pain. 7. Vitromed 8.5 g p.o. daily, 10 packets have been prescribed. Patient has been provided basic metabolic panel slip. VITALS: At the time of discharge, temperature 98.3 degrees, pulse 66, respiratory rate 18, blood pressure 157/49, and saturating 98% on room air. General: Patient does not appear in any acute distress. Oral cavity is moist. Lungs: Air entry bilaterally equal. No wheeze, rhonchi, or crackles. Cardiovascular: S1, S2 normal. Appears regular. Mild systolic murmur heard at base of the heart. No rub or gallop. Lungs: Air entry bilaterally equal. No wheeze, rhonchi, or crackles. Abdomen: Soft, nontender. He has a suprapubic catheter site which is dressed, not soaked. He has bilateral lower extremity edema. He is alert and oriented x3. Suprapubic bag is draining clear urine. LABS AT TIME OF DISCHARGE: Sodium is 140, potassium 5.5, chloride 110, carbon dioxide 20, BUN of 45, and creatinine of 3. His blood sugar is 96. Significant microbiology during hospital admission, urine culture on 12/01/2018 was growing Klebsiella oxytoca sensitive to levofloxacin. Blood culture did not have any growth. Repeat urine culture on 12/07/2018 did not have any growth. SIGNIFICANT IMAGING DURING HOSPITAL ADMISSION: Extremity venous study on 12/01 had no evidence of DVT on any of the lower extremities. Chest x-ray on 12/01 had cardiomegaly without any definite congestive heart failure. Chest CT on 12/01 has no discrete evidence of any acute disease. There were calcified mediastinal lymph nodes from old granulomatous disease. There were bilateral prominent axillary lymph nodes. There were calcified granulomas in the liver and the spleen. Renal ultrasound on 12/03 had bilateral increased renal cortical echo structure suggestive of medical renal disease, and simple left renal cyst. Abdominal x-ray on 12/05 had suggested constipation. Abdomen and pelvis CT on 12/09 for abdominal pain had sludge in the gallbladder, left renal cyst, suprapubic catheter with thickening of urinary bladder, enlarged prostate, and mildly prominent pelvic nodes similar to prior studies. SIGNIFICANT PROCEDURES DURING HOSPITAL ADMISSION: On 12/02/2018, patient underwent suprapubic catheter placement. He initially underwent this procedure as Poe catheter was unable to be passed at bedside due to urethral stricture. There was found to be complete obstruction of proximal bulbar urethra with probable false passage. He underwent a colonoscopy on 12/13/2018 for constipation and anemia. There was stool throughout the colon, diverticulosis in descending and sigmoid colon and internal hemorrhoids grade 2. There was evidence of retained stool in the cecum, which could not be cleared so the cecum could not be visualized. There were 2 polyps in the ascending colon of about 1 to 2 cm, which were removed using cautery snare polypectomy. HOSPITAL COURSE SUMMARY: Mr. Torres is an 83 year old man with past medical history of essential hypertension, medical noncompliance, who initially presented on 12/02/2018 with chief complaints of chest pain and shortness of breath. In the emergency room, he was found to have a hypertensive emergency with systolic blood pressure more than 200. He received intravenous antihypertensive medication, and was started on intravenous nitroglycerin drip. He was also found to have acute kidney injury on chronic kidney disease stage 4. Later on, his antihypertensive medication were changed to oral. He developed bradycardia on higher dose of carvedilol which was adjusted. At the time of discharge, his systolic blood pressure was close to 150 and he was maintaining his blood pressure well on oral antihypertensive medications. Cardiology was consulted since he had elevated troponin which peaked at about 0.24. EKG on admission had normal sinus rhythm. Possible left atrial enlargement and ST-T wave abnormality in inferolateral ischemia, so he underwent echocardiogram. Echocardiogram had suggested ejection fraction of 70%, diastolic dysfunction and moderate left ventricular hypertrophy. There were no regional wall motion abnormality in that limited study. He was just managed conservatively with optimization of his medications. While in the hospital, he also developed urinary retention and urine culture was growing Klebsiella. He was treated with intravenous antibiotics at the time of discharge. He will be going on p.o. levofloxacin. Urology was consulted for urine retention, and he was found to have severe stricture of urethra likely because of benign prostatic hypertrophy and so suprapubic catheter was placed. He should be following up with Urology as an outpatient, and home care was set up for suprapubic catheter care. On admission, he was found to have acute kidney injury on chronic kidney disease stage 4, which was likely hypertensive in nature. He also had hyperkalemia and mild metabolic acidosis for which he was started on a bicarbonate At the time of discharge, his kidney function was stable and he was advised to follow up BMP and outpatient nephrology followup. He was found to have monoclonal gammopathy of undetermined significance as his serum protein electrophoresis has monoclonal band. No interventions were planned from Hematology/Oncology. He was advised to follow up with Hematology/Oncology as an outpatient. Patient had concerns about asbestosis, and previously he had consulted a law firm for medical loss against his previous employer. I provided him the information about the old granuloma which were noticed on lung and abdominal scan. I have advised him to follow up with outpatient lung doctor to discuss further about it. Discharge medications were provided to him in detail, and also had been written. All of his questions were answered. TIME SPENT: More than 30 minutes were spent in discharging this patient. cc: Hubert Herrera MD MTDD
== END 2018-12-14 18:20 | disposition home health service (06) | DRG 291 ==
LOC: P.ED 12:46 → SUATTDRO 20:09 → P.ICU 20:09 → P.EDIPHOLD 22:22 → ICU 23:45 → 3S 12-03 21:03 → 3N 12-05 14:33
PROVIDERS: ATTEND Internal Medicine
CPT/HCPCS: 50200; 71010; 71045; 71250; 74000; 74018; 74019; 74020; 74176; 76770; 80048; 80053; 80069; 81001; 81050; 82550; 82553; 82570; 82784; 82805; 83615; 83735; 83880; 84132; 84155; 84156; 84165; 84166; 84300; 84484; 85018; 85025; 85027; 85379; 85610; 85730; 86140; 86334; 86335; 87040; 87077; 87088; 87186; 88300; 88305; 88313; 93005; 93010; 93306; 93970; 94640; 94761; 94799; 96365; 96366; 96367; 96368; 96372; 96375; 97116; 97162; 97530; 99285; 99291; A9270; J0360; J0610; J0692; J0696; J1100; J1170; J1644; J1940; J2405; J2543; J3010; J3370; J7030; J7040

== ENCOUNTER 2019-07-29 13:34 | Inpatient (IN) ==
--- NOTE | 2019-07-29 15:33 | Diag Imaging Result Doc PS360 ---
EXAM: CHEST-1 VIEW 07/29/2019 HISTORY: Swelling and CHF TECHNIQUE: AP portable upright at 1505 COMMENT: There is cardiomegaly. There is no evidence of acute pulmonary disease. Compared to 12/12/2018 considering differences in technique there has been no significant change. IMPRESSION: Cardiomegaly. Electronically signed by Agus Cormier 07/29/2019 3:31 PM
--- NOTE | 2019-07-29 15:35 | Diag Imaging Result Doc PS360 ---
EXAM: KNEE 3 VIEWS LEFT 07/29/2019 HISTORY: Knee pain TECHNIQUE: Three views COMMENT: There are degenerative changes particularly in the medial joint compartment where there is [id number] contact. There is severe hypertrophic change in the patellofemoral joint. No evidence of fracture or dislocation is present. IMPRESSION: Severe osteoarthritis. Electronically signed by Agus Cormier 07/29/2019 3:33 PM
[2019-07-29 16:01] LABS: BASO# 0.03 X1000 (0.0-0.2); BASO% 0.2 % (0.0-0.8); EOS# 0.32 X1000 (0.0-0.7); EOS% 2.4 % (0.0-10.0); HEMATOCRIT 32.2 % (42.0-52.0); HEMOGLOBIN 9.8 g/dL (14.0-18.0); IMM GRAN# 0.05 X1000 (0.0-0.04); IMM GRAN% 0.4 % (0.0-0.5); LYMPH# 2.68 X1000 (1.2-3.4); LYMPH% 19.7 % (20.5-51.1); MCH 28.7 PG (27-31); MCHC 30.4 g/dL (33-37); MCV 94.2 FL (81-99); MONO# 1.15 X1000 (0.11-0.59); MONO% 8.5 % (1.7-9.3); MPV 10.2 FL (7.4-10.4); NEUT# 9.35 X1000 (1.4-6.5); NEUT% 68.8 % (42.2-75.2); PLT 302 X1000 (130-400); RBC 3.42 XMIL (4.7-6.1); RDW 12.8 % (11.5-14.5); WBC 13.58 X1000 (4.8-10.8)
[2019-07-29 16:05] LABS: INR 1.04; PROTIME 13.8 Seconds (11.0-16.0)
[2019-07-29 16:16] LABS: PTT 33.7 Seconds (22.3-41.8)
[2019-07-29 16:39] LABS: ALB/GLOB RATIO 0.6; ALBUMIN 3.1 g/dL (3.5-5.0); CALCIUM 8.8 mg/dL (8.8-10.2); CREATININE 4.3 mg/dL (0.7-1.2); TOTAL BILIRUBIN 0.2 mg/dL (0.20-1.00); TOTAL PROTEIN 7.9 g/dL (6.3-8.3)
[2019-07-29 16:42] LABS: POTASSIUM 6.4 mmol/L (3.5-5.1)
[2019-07-29] MEDS ORDERED: D50W SYRINGE IV ONE (16:48)
[2019-07-29] MEDS ORDERED: CALCIUM GLUCONATE 2 GM in NS 100 ML IV ONE (16:55)
[2019-07-29] MEDS ORDERED: HUMULIN R IV ONE (16:55)
[2019-07-29] MEDS ORDERED: SODIUM BICARBONATE 8.4% IV PUSH ONE (16:57)
[2019-07-29] MEDS ORDERED: KAYEXALATE PO ONE (16:59)
[2019-07-29] MEDS ORDERED: ALBUTEROL NEB INH ONE (16:59)
--- NOTE | 2019-07-29 17:18 | PROVIDER DOCUMENTATION ---
This chart was entered by Petrona Jimenez Scribe, acting as scribe for Roger Nava MD. HPI-General Adult - General Chief Complaint: Edema Stated Complaint: LEG SWELLING Time Seen by Provider: 07/29/19 14:22 Source: patient Allergies/Adverse Reactions: Patient Allergies Allergy/AdvReac Type Severity Reaction Status Date / Time No Known Allergies Allergy Verified 07/29/19 15:36 Home Medications: Home Medication List Medication Instructions Recorded Confirmed Last Taken Type Omeprazole [Prilosec] 20 mg PO DAILY@0700 #30 cap 12/14/18 07/29/19 07/29/19 Rx Carvedilol [Coreg] 12.5 mg PO Q12H 01/19/19 07/29/19 07/29/19 History Hydralazine [Apresoline] 50 mg PO TID 01/19/19 07/29/19 07/29/19 History Hydrochlorothiazide 25 mg PO DAILY 01/19/19 07/29/19 07/29/19 History Aspirin [Aspir-Low] 1 tab PO DAILY 07/29/19 07/29/19 07/29/19 History Furosemide [Lasix] 1 tab PO DAILY 07/29/19 07/29/19 07/29/19 History - History of Present Illness -Gen Adult Nature of Presenting Problems: 83 y/o male presents to ED with bilateral leg swelling and pain onset 1 week ago. Pt reports decreased ability to walk due to his symptoms. Pt states he has had chronic leg swelling for the past year due to CHF. Pt reports he saw pcp 2 days ago for these symptoms and he doubled his lasix. Pt states his symptoms have not improved, and his home health nurse told him to come to ED. Pt has indwelling wilhelm cath with good urine output. Pt denies any other symptoms including fever, shortness of breath, chest pain, or abdominal pain. Pt reports left knee pain for about the last month. Pt is alert and in no distress. Location of Pain/Injury: reports: lower extremity Pain Radiation: reports: no radiation Severity: reports: mild Onset/Duration: reports: 1 week ago, other (acute on chronic) Timing: reports: still present Context/Activities at Onset: reports: other (hx of CHF with recent increase in lasix without benefit) Modifying Factors: improves with: nothing Associated Symptoms: reports: trouble walking, other (bilateral leg pain and swelling) Similar Symptoms Previously?: Yes Recently seen or treated by another doctor?: Yes (pcp 2 days ago) Review of Systems - Adult - REVIEW OF SYSTEMS - ADULT Constitutional: reports: no symptoms reported. denies: fever Eyes: reports: no symptoms reported. denies: eye pain Ears, Nose, Mouth & Throat: reports: no symptoms reported. denies: throat pain Cardiovascular: reports: edema. denies: chest pain Respiratory: reports: no symptoms reported. denies: shortness of breath Gastrointestinal: reports: no symptoms reported. denies: abdominal pain Genitourinary: reports: no symptoms reported. denies: urinary retention Musculoskeletal: reports: joint pain (left knee) Integumentary: reports: no symptoms reported Neurological: reports: no symptoms reported. denies: headache/migraines Psychiatric: reports: no symptoms reported. denies: alcohol/drug dependence Endocrine: reports: no symptoms reported Hematologic/Lymphatic: reports: no symptoms reported, other (no bleeding) Allergic/Immunologic: reports: no symptoms reported Past History - Adult - PAST MEDICAL HISTORY-ADULT Review of Records: reports: Old Records Reviewed Major Childhood Illnesses: reports: denies history Cardiovascular: reports: CHF, HTN Respiratory: reports: denies history Gastrointestinal: reports: denies history Obstetrical/Gynecological: reports: denies history Genitourinary: reports: kidney disease, kidney stones Musculoskeletal: reports: denies history Neurological: reports: denies history Psychiatric: reports: denies history Endocrine/Immune: reports: denies history Other Conditions: reports: denies history - PRIOR SURGERIES/PROCEDURES Surgical/Procedure History: reports: none - IMMUNIZATION STATUS Childhood Immunizations: See Nurse Assessment Flu Vaccine: See Nurse Assessment - FAMILY HISTORY Family History: reviewed, not pertinent - SOCIAL HISTORY Smoking: non-smoker Substance Use: none/never Alcohol Use Frequency: never Living Situation: family Physical Exam-General - PHYSICAL EXAM-ADULT Initial Vital Signs Reviewed: Yes - CONSTITUTIONAL General Appearance: appears well, alert, no apparent distress - EYES Eyes: negative: conjuctival exudate, photophobia, scleral icterus - HEAD, EARS, NOSE, MOUTH & THROAT HENMT: normocephalic/atraumatic, moist mucous membranes, pharynx normal. negative: hearing deficit, pharyngeal erythema - NECK Neck: normal inspection - RESPIRATORY Respiratory: lungs clear, normal breath sounds, no respiratory distress. negative: crackles, stridor, wheezing - CARDIOVASCULAR Cardiovascular: regular rate, rhythm. negative: no edema (3+ bilateral LE edema) - GASTROINTESTINAL (ABDOMEN) Abdominal Exam: non tender, soft, distended - MUSCULOSKELETAL Extremity: non-tender, swelling (bilateral), other (left knee with mild tenderness, no significant swelling of the knee joint, no significant erythema.) - SKIN Integumentary: normal color, warm/dry - NEUROLOGIC Neurologic: grossly normal - PSYCHIATRIC Psych/Mental Status: normal mood/affect, normal thought content, normal thought process Progress - PLAN OF CARE/RESULTS Progress/Plan/Lab Results: Will evaluate for acute causes of knee pain and increased bilateral LE swelling - no current respiratory distress or chest pain - bilateral LE swelling, acute on chronic. Laboratory Tests 07/29/19 07/29/19 15:43 15:43 WBC 13.58 H RBC 3.42 L Hgb 9.8 L Hct 32.2 L MCV 94.2 MCH 28.7 MCHC 30.4 L RDW Std Deviation 12.8 Plt Count 302 MPV 10.2 Immature Gran % (Auto) 0.4 Neut % (Auto) 68.8 Lymph % (Auto) 19.7 L [place] % (Auto) 8.5 Eos % (Auto) 2.4 Baso % (Auto) 0.2 Immature Gran # (Auto) 0.05 H Neut # (Auto) 9.35 H Lymph # (Auto) 2.68 [place] # (Auto) 1.15 H Eos # (Auto) 0.32 Baso # (Auto) 0.03 PT 13.8 INR 1.04 PTT (Actin FS) 33.7 D-Dimer, Quantitative 2.94 H Orders Category Date Time Status CHEST-1 VIEW [RAD] Stat Exams 07/29/19 14:36 Completed KNEE 3 VIEWS LEFT [RAD] Stat Exams 07/29/19 14:38 Completed BNP [PRO B-NATRIURETIC PEPTIDE] Stat Lab 07/29/19 15:43 Received CBC WITH ELECTRONIC DIFF [HEME] Stat Lab 07/29/19 15:43 Completed COMPREHENSIVE METABOLIC PANEL [CHEM] Stat Lab 07/29/19 15:43 Received D-DIMER [COAG] Stat Lab 07/29/19 15:43 Completed PROTIME WITH INR [COAG] Stat Lab 07/29/19 15:43 Completed PTT [COAG] Stat Lab 07/29/19 15:43 Completed EKG [EKG] Stat Ther 07/29/19 14:36 Ordered Vital Signs - 24 hr 07/29/19 14:35 07/29/19 14:36 07/29/19 14:38 Temperature 97.8 F Pulse Rate 63 Respiratory Rate 19 Blood Pressure 167/56 167/56 O2 Sat by Pulse Oximetry 98 99 100 07/29/19 15:00 07/29/19 16:00 Temperature Pulse Rate Respiratory Rate Blood Pressure O2 Sat by Pulse Oximetry 99 99 Laboratory Tests 07/29/19 07/29/19 07/29/19 15:43 15:43 15:43 WBC 13.58 H RBC 3.42 L Hgb 9.8 L Hct 32.2 L MCV 94.2 MCH 28.7 MCHC 30.4 L RDW Std Deviation 12.8 Plt Count 302 MPV 10.2 Immature Gran % (Auto) 0.4 Neut % (Auto) 68.8 Lymph % (Auto) 19.7 L [place] % (Auto) 8.5 Eos % (Auto) 2.4 Baso % (Auto) 0.2 Immature Gran # (Auto) 0.05 H Neut # (Auto) 9.35 H Lymph # (Auto) 2.68 [place] # (Auto) 1.15 H Eos # (Auto) 0.32 Baso # (Auto) 0.03 PT 13.8 INR 1.04 PTT (Actin FS) 33.7 D-Dimer, Quantitative 2.94 H Sodium 138 Potassium 6.4 H* Chloride 102 Carbon Dioxide 15 L Anion Gap 21 BUN 99 H Creatinine 4.3 H Estimated GFR/1.73 m2 16 BUN/Creatinine Ratio 23 Glucose 96 Calculated Osmolality 306 Calcium 8.8 Total Bilirubin 0.20 AST 16 ALT 10 Alkaline Phosphatase 78 Xkg-V-Zjepfsfmyxh Pept Total Protein 7.9 Albumin 3.1 L Globulin 4.8 Albumin/Globulin Ratio 0.6 07/29/19 15:43 WBC RBC Hgb Hct MCV MCH MCHC RDW Std Deviation Plt Count MPV Immature Gran % (Auto) Neut % (Auto) Lymph % (Auto) [place] % (Auto) Eos % (Auto) Baso % (Auto) Immature Gran # (Auto) Neut # (Auto) Lymph # (Auto) [place] # (Auto) Eos # (Auto) Baso # (Auto) PT INR PTT (Actin FS) D-Dimer, Quantitative Sodium Potassium Chloride Carbon Dioxide Anion Gap BUN Creatinine Estimated GFR/1.73 m2 BUN/Creatinine Ratio Glucose Calculated Osmolality Calcium Total Bilirubin AST ALT Alkaline Phosphatase Jbl-A-Hnegdfrsuin Pept 907 H Total Protein Albumin Globulin Albumin/Globulin Ratio Result Diagrams: 07/29/19 15:43 07/29/19 15:43 - REASSESSMENT Reassessment #1 Status: other (Scribe note updated/reviewed) - EKG 1 Time of EKG reading by physician:: 17:42 EKG Read and Signed by:: Roger Nava EKG Interpretation (*Must complete 3 of following elements*): Abnormal Rate: 88 Rhythm: NSR [place]: normal QRS: other (possible L atrial enlargement) [place] Interval: normal ST Wave: non-specific ST changes Comments: No STEMI. -Dr. Nava - XRAY 1 XRAY Study: Chest Impression: See EMR Report ([facility] - [address] [place] [address] [place] [id number] [facility] - [address] [place] [address] Department of Imaging Patient: ARCADIO LOCKHART Date: 07/29/19#: [id number] : 1935 Status: REG [facility]#: [id number] Age/Sex: 83/MRoom/Bed: Loc: ED Ordering Physician: Roger Nava MD Family Physician: Hebert Doe MD Reason for Procedure: Swelling and CHF Signed EXAM: CHEST-1 VIEW 07/29/2019 HISTORY: Swelling and CHF TECHNIQUE: AP portable upright at 1505 COMMENT: There is cardiomegaly. There is no evidence of acute pulmonary disease. Compared to 12/12/2018 considering differences in technique there has been no significant change. IMPRESSION: Cardiomegaly. Electronically signed by Agus Cormier 07/29/2019 3:31 PM 07/29/19 1531 Interpreting Physician: Agus Cormier MD Dictated Date/Time: 07/29/19 1530 cc: Roger Nava MD; Hebert Doe MD) 2 XRAY: Left XRAY Study: Knee Impression: See EMR Report ([facility] - [address] [facility], [address], [place] [address] [facility] - [address] [place] [address] Department of Imaging Patient: ARCADIO LOCKHART Date: 07/29/19#: [id number] : 1935DM Status: [facility] ERAcct#: [id number] Age/Sex: 83/MRoom/Bed: Loc: ED Ordering Physician: Roger Nava MD Family Physician: Hebert Doe MD Reason for Procedure: Knee pain Signed EXAM: KNEE 3 VIEWS LEFT 07/29/2019 HISTORY: Knee pain TECHNIQUE: Three views COMMENT: There are degenerative changes particularly in the medial joint compartment where there is [id number] contact. There is severe hypertrophic change in the patellofemoral joint. No evidence of fracture or dislocation is present. IMPRESSION: Severe osteoarthritis. Electronically signed by Agus Cormier 07/29/2019 3:33 PM 07/29/19 1533 Interpreting Physician: Agus Cormier MD Dictated Date/Time: 07/29/19 1532 cc: Roger Nava MD; Hebert Doe MD) - CONSULTS/PCP/HOSPITALIST Notification #1 *Consult/PCP/Hospitalist*: Hospitalist Time Discussed: 17:26 Reason/Comments: Hyperkalemia; kidney failure; edema Consult Disposition: Admit Departure - Departure Date of Disposition Decision: 07/29/19 Time of Disposition Decision: 17:29 DIAGNOSIS: Hyperkalemia Edema Qualifiers: Edema type: unspecified Qualified Code(s): R60.9 - Edema, unspecified Kidney failure Qualifiers: Renal failure chronicity: unspecified chronicity Qualified Code(s): N19 - Unspecified kidney failure Disposition: ADMITTED INPATIENT 09 Certified Medical Emergency: Emergent Condition: Stable Referrals and Follow-Ups: Hebert Doe MD [Primary Care Provider] - - Critical Care Note This patient required my direct & personal management of CC.: No Attestation - Physician/ HARJINDER Attestation Patient care was provided by Advanced Practice Provider:: No The physician spent face to face time with patient:: Yes Advanced Practice Provider documentation review:: Supervising physician onsite and consulted in the evaluation and care of this patient. The physician did have a face to face encounter with the patient. This chart was documented by the indicated scribe, (Petrona Jimenez Scribe) and accurately reflects the services I performed and decisions made by me, Roger Nava MD, as attested by the provider's signature.
[2019-07-29] MEDS ORDERED: LASIX IV ONE (18:39)
--- NOTE | 2019-07-29 19:24 | HISTORY AND PHYSICAL ---
HISTORY OF PRESENT ILLNESS: Mr. Torres is an 83-year-old black male. He is followed by Dr. Hebert Doe. He states for the last 2 weeks he has had more swelling in his legs, more weakness, felt like he got where he could not walk. He does hurt in both his knees but just getting very weak and concerned about swelling. They did noninvasive venous studies of his legs, did not have a DVT in the emergency room, but his potassium was above 6 and just not able to get up and move around, increased swelling. Denies chest pain, denies true orthopnea or paroxysmal nocturnal dyspnea. No pleuritic pain. No sputum production. No squeezing chest pain, and he has had the swelling before. PAST MEDICAL HISTORY: Includes hypertensive heart disease, chronic kidney disease. I think Dr. Alcaraz has been following him. I think he has congestive heart failure. He had a renal ultrasound done on 12/03/2018 with bilateral increased renal cortical echotexture, which is a nonspecific indicator of medical renal disease, and simple left renal cyst was appreciated. His echocardiogram done in November of this last year was difficult study. Parasternal views were limited. Preserved left ventricular function. Ejection fraction 70%. Suspect diastolic dysfunction. Normal pulmonary pressures. So, he has chronic venous insufficiency. He had a positive protein that was worked up. 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 He had history of aggressive hypertension, some pulmonary edema, a urinary tract infection in the past, acute on chronic renal failure in the past. He had had abdominal pain and constipation, diverticulosis and he has had history of urinary tract infection and obesity, chronic back pain. PAST SURGICAL HISTORY: He has had a suprapubic catheter placement, never had a colostomy I do not believe. FAMILY HISTORY: History of diabetes mellitus. Three sisters with diverticulitis. A brother with lung disease, but he was a smoker though. 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 ALLERGIES: No known drug allergies. REVIEW OF SYSTEMS: General: No weight gain or loss that he is aware of, although he feels like he has had more swelling in his feet. No fever or chills. HEENT: No change in visual or hearing acuity. Respiratory: No increased work of breathing or dyspnea until this last couple of days but mainly weakness and swelling in his legs. Cardiovascular: No chest pain or tachy palpitation. No pleuritic pain. Genitourinary: He suffers from constipation on a chronic basis. He has a suprapubic catheter. Musculoskeletal/Neurologic: No focal complaints. PHYSICAL EXAMINATION: VITAL SIGNS: Temperature 97.8 degrees, pulse 99, respirations 18, blood pressure 167/56. EYES: Pupils are equal and round. LUNGS: Clear in all lung lugo, anterior, lateral and posterior. CARDIOVASCULAR EXAM: Regular rhythm and rate without murmur or S3. ABDOMEN: Soft, nondistended, nontender. Weight is 240 pounds, height 5 feet 10 inches. EXTREMITIES: He has 4+ pitting edema from ankle all the way up to his knees. He has some bullae and some that looked like keloid formation on his left leg in particular. I do not see any erythema or sign of infection. ENT: No oral or nasal mucosa lesions. NECK: Supple. No adenopathy. LABORATORY DATA: White count 13,580, hematocrit is 32, hemoglobin is 9.8, platelet count 302,000. Sodium 138, potassium 6.4, chloride 102, bicarb 15, BUN 99, creatinine 4.3, AST 16, ALT is 10, alkaline phosphatase 78, albumin is 3.1. Protime 13.8. RADIOLOGIC DATA: Chest x-ray shows cardiomegaly. No evidence of acute pulmonary disease, and his knee x-ray of left knee showed severe osteoarthritis. ASSESSMENT AND PLAN: 1. Chronic venous insufficiency in the face of diastolic dysfunction. See if we can get some of the fluid off of his legs. I do not see any sign of active infection, but we will try and diurese. 2. He has normal left ventricular function and appears diastolic dysfunction so should be able to handle the diuresis. We will watch his electrolytes. Note, his potassium is a little bit high. 3. Chronic kidney disease stage 4. His creatinine is 4.3. Dr. Alcaraz has followed in the past. We are going to diurese him. That should bring the potassium down. We will give him Veltassa, and we will give him 1 dose now. We will give him Lasix, and we will give Lasix at 80 mg IV push and do that q.12 hours, give 1 dose now. Note he had ultrasound done on his lower extremities, and he has no deep venous thrombosis. We will use some pneumatic stockings for deep venous thrombosis prophylaxis. 4. We will watch his blood pressure and continue his present medication. He is getting hydrochlorothiazide 25 mg a day, Apresoline 50 mg t.i.d. and Coreg 12.5 mg q.12 hours. 5. General weakness and deconditioning. We are going to need to get some physical therapy. We will check T4, TSH, B12 and folate. We will check an a.m. cortisol level and go from there. I think he can go to the regular floor. cc: Stephen Shaw MD MTDD
--- NOTE | 2019-07-29 19:46 | EKG Report ---
Test Performed on : 07/29/2019 5:42:43 PM Test Reason : CP Blood Pressure : / mmHG Vent. Rate : 088 BPM Atrial Rate : 088 BPM P-R Int : 192 ms QRS Dur : 096 ms QT Int : 378 ms P-R-T Axes : 056 023 202 degrees QTc Int : 457 ms Normal sinus rhythm. Possible Left atrial enlargement Marked ST abnormality, possible inferior subendocardial injury Abnormal ECG When compared with ECG of 12-DEC-2018 14:49, Vent. rate has increased BY [address] now depressed in Inferior leads ST now depressed in Anterolateral leads T wave inversion now evident in Inferior leads T wave inversion now evident in Anterior leads Unconfirmed Result
[2019-07-29] MEDS: VELTASSA PO SCH (20:19)
[2019-07-29] MEDS: COREG PO SCH (20:20)
[2019-07-30] MEDS ORDERED: PRILOSEC PO SCH (07:00)
[2019-07-30 07:35] LABS: BASO# 0.04 X1000 (0.0-0.2); BASO% 0.3 % (0.0-0.8); EOS# 0.27 X1000 (0.0-0.7); HEMATOCRIT 29.5 % (42.0-52.0); HEMOGLOBIN 8.9 g/dL (14.0-18.0); IMM GRAN# 0.04 X1000 (0.0-0.04); IMM GRAN% 0.3 % (0.0-0.5); LYMPH# 3.24 X1000 (1.2-3.4); LYMPH% 23.5 % (20.5-51.1); MCHC 30.2 g/dL (33-37); MCV 92.8 FL (81-99); MONO# 1.11 X1000 (0.11-0.59); MPV 10.3 FL (7.4-10.4); NEUT# 9.09 X1000 (1.4-6.5); NEUT% 65.9 % (42.2-75.2); PLT 335 X1000 (130-400); RBC 3.18 XMIL (4.7-6.1); RDW 12.8 % (11.5-14.5); WBC 13.79 X1000 (4.8-10.8)
[2019-07-30 08:05] LABS: ALB/GLOB RATIO 0.8; CALCIUM 8.9 mg/dL (8.8-10.2); CREATININE 3.9 mg/dL (0.7-1.2); POTASSIUM 4.6 mmol/L (3.5-5.1); TOTAL BILIRUBIN 0.31 mg/dL (0.20-1.00); TOTAL PROTEIN 6.9 g/dL (6.3-8.3)
[2019-07-30 08:21] LABS: FREE T4 0.96 ng/dL (0.93-1.70); TSH 2.18 uIUmL (0.27-4.20)
[2019-07-30] MEDS: LASIX IV SCH ×2 (08:53→21:22)
[2019-07-30] MEDS: ASPIRIN EC PO SCH (08:53)
[2019-07-30] MEDS: APRESOLINE PO SCH ×3 (08:53→17:46)
[2019-07-30] MEDS: HYDROCHLOROTHIAZIDE PO SCH (08:54)
[2019-07-30] MEDS: TYLENOL PO PRN (09:00)
[2019-07-30] MEDS: COREG PO SCH ×2 (10:06→21:21)
[2019-07-30] MEDS: VELTASSA PO SCH (10:07)
--- NOTE | 2019-07-30 14:24 | PROGRESS NOTE ---
DATE: 07/30/2019 SUBJECTIVE: Patient reports excruciating pain in the left knee. He has history of gout and looks like he has another flare up. The patient reports breathing better today. OBJECTIVE: Vital Signs: Temperature 98.4 degrees, heart rate 74, respiratory rate 16, blood pressure 130/92, O2 saturation 100% on room air. General: This is a chronically ill-appearing 83- year-old male, lying in bed, in no acute distress. Cardiovascular: S1, S2 heard. No murmurs, gallops, or rubs. Regular rate and rhythm. Respiratory: Clear bilaterally to auscultation. No work of breathing or using accessory muscles. Abdomen: Soft, nontender to palpation. Bowel sounds present. No organomegaly. Extremities: 4+ pitting edema in both lower extremities from the ankle all the way up to both knees. The left knee has significant edema, very tender to palpation and also warm to touch. Neurological: Patient alert and oriented x3. Moves 4 extremities. LABORATORY DATA: White cell count 13.79, hemoglobin 8.9, hematocrit 29.5, potassium 4.6, creatinine 3.9. ASSESSMENT AND PLAN: 1. Acute diastolic heart failure. We will continue with Lasix 80 mg IV q.12 hours. Clinically, this patient is breathing better and not requiring any oxygen supplementation. So, at this point we will continue to monitor this patient closely. 2. Left knee gouty attack. We will start patient on Solu-Medrol 60 mg IV q.12 hours and will increase the dose of omeprazole from 20 to 40 mg p.o. b.i.d. 3. Acute on chronic kidney disease stage IV. Creatinine has been 4.3 at admission but patient is getting better. Creatinine is 3.9 today. The baseline is 3.0 or around that number. We will continue to monitor. 4. Hypertension. Blood pressure is under control. We will continue current management. 5. Disposition. If the patient continues to report still feeling better tomorrow and knee is also getting better, we may let this patient go tomorrow. cc: Jamari Shore MD MTDClarence
--- NOTE | 2019-07-30 15:02 | NEPHROLOGY CONSULTATION ---
DATE: 07/30/2019 REASON FOR CONSULTATION: Chronic kidney disease. HISTORY OF PRESENT ILLNESS: Mr. Torres is an 83-year-old, man with hypertension, CKD stage 4, congestive heart failure. He has been followed by us in the past but he did not keep his last scheduled appointment. Baseline creatinine is around 3 with baseline renal function of around 25%. He came to the emergency room stating that he had weakness as such that he could not walk. He blames this on his knee. He states he has chronic knee pain that restricts his movement and this is associated with significant weakness that he states has been progressive in severity and ultimately reached the point he is not able to ambulate. He had generalized weakness. He came to the emergency room for evaluation where his initial vital signs had blood pressure 167/56 with heart rate 63, respiration 19, and he was afebrile. His potassium was 6.4 with a creatinine of 4.3, BUN of 99. On these bases, he was admitted to the hospital for further treatment and evaluation. He states that his appetite has been good and that he has no particular problem with nausea or vomiting. He does have chronic lower extremity swelling which he states has really not changed much. He did increase his Lasix in an attempt to help with his swelling. No cough or sputum production. No chills or fever, sweats or night sweats. PAST MEDICAL HISTORY: As above. HOME MEDICATIONS: Include omeprazole, carvedilol, hydralazine, hydrochlorothiazide, aspirin, furosemide. ALLERGIES: None. SOCIAL HISTORY: He is single and lives alone. No alcohol or tobacco. Has a very large and attentive family although none are present at the time of my exam. FAMILY HISTORY, SOCIAL HISTORY: Noncontributory. PHYSICAL EXAMINATION: Vital Signs: Blood pressure 130/92, heart rate 74, respirations 16, afebrile. General: A healthy appearing elderly man in no distress. Skin: Warm and dry. HEENT: Conjunctivae are pink. Pupils are equal. Oropharynx is clear. Normal tongue. Normal teeth, moist. Neck: Neck veins are distended. Trachea is midline. Heart: PMI is nondisplaced. Regular rate and rhythm without rubs. Lungs: Have equal excursion, equal breath sounds. No crackles, wheezes, accessory muscle use or retractions. Abdomen: Soft, nontender. Bowel sounds present. No organomegaly or masses. Extremities: 2+ edema with venous stasis changes. No clubbing or cyanosis. Left knee with moderate effusion and mildly warm. Neurologic: Nonfocal. No asterixis. IMPRESSION: 1. Chronic kidney disease. Creatinine is elevated above baseline but BUN is 93 today, 99 on presentation. He does not have overt uremia in the sense that he does not have nausea or vomiting or anorexia. No asterixis or rubs. No acute indications for dialysis. He states that he would not accept dialysis in any event. 2. Hyperkalemia. Certainly this is possibly the cause of his weakness. Potassium is improved with treatment, 4.6 this morning. 3. Volume status. Modest volume expansion though relatively asymptomatic. We will continue his furosemide. cc: Lopez Alcaraz MD
[2019-07-30] MEDS: SOLU-MEDROL IV SCH ×2 (16:17→21:21)
[2019-07-30] MEDS: PRILOSEC PO SCH (21:21)
[2019-07-31 06:18] LABS: BASO# 0.01 X1000 (0.0-0.2); BASO% 0.1 % (0.0-0.8); HEMOGLOBIN 9.7 g/dL (14.0-18.0); IMM GRAN# 0.08 X1000 (0.0-0.04); IMM GRAN% 0.5 % (0.0-0.5); LYMPH# 1.81 X1000 (1.2-3.4); LYMPH% 12.4 % (20.5-51.1); MCHC 30.3 g/dL (33-37); MCV 92.5 FL (81-99); MONO# 0.08 X1000 (0.11-0.59); MONO% 0.5 % (1.7-9.3); MPV 10.2 FL (7.4-10.4); NEUT# 12.64 X1000 (1.4-6.5); NEUT% 86.5 % (42.2-75.2); PLT 356 X1000 (130-400); RBC 3.46 XMIL (4.7-6.1); RDW 12.6 % (11.5-14.5); WBC 14.62 X1000 (4.8-10.8)
[2019-07-31] MEDS: SOLU-MEDROL IV SCH ×3 (06:47→21:53)
[2019-07-31] MEDS: PRILOSEC PO SCH ×2 (06:47→21:54)
[2019-07-31 06:54] LABS: ALB/GLOB RATIO 0.7; ALBUMIN 3.1 g/dL (3.5-5.0); CALCIUM 8.9 mg/dL (8.8-10.2); CREATININE 4.4 mg/dL (0.7-1.2); POTASSIUM 5.1 mmol/L (3.5-5.1); TOTAL BILIRUBIN 0.2 mg/dL (0.20-1.00); TOTAL PROTEIN 7.5 g/dL (6.3-8.3)
[2019-07-31] MEDS: LASIX IV SCH (08:38)
[2019-07-31] MEDS: COREG PO SCH ×2 (08:38→21:54)
[2019-07-31] MEDS: ASPIRIN EC PO SCH (08:38)
[2019-07-31] MEDS: APRESOLINE PO SCH ×3 (08:38→17:30)
[2019-07-31] MEDS: VELTASSA PO SCH (08:40)
[2019-07-31 10:45] LABS: HYPOCHROM 1+; LYMPHS 20 % (21-51); SEGS 80 % (42-75)
[2019-07-31] MEDS: HYDROCHLOROTHIAZIDE PO SCH (14:19)
--- NOTE | 2019-07-31 14:56 | PROGRESS NOTE ---
DATE: 07/31/2019 SUBJECTIVE: The patient reports that pain in the left knee is much better. No other complaints noted. He is not requiring any oxygen supplementation. OBJECTIVE: Vital Signs: Temperature 98 degrees, heart rate 74, respiratory rate 17, blood pressure 161/68, O2 saturation 99% on room air. General: This is a 89-year-old, male, lying in bed in no acute distress. Cardiovascular: S1, S2 heard. No murmurs, gallops, or rubs. Regular rate and rhythm. Respiratory: Clear bilaterally to auscultation. There are just minimal crackles noted in both pulmonary bases. The patient is not using any accessory muscles or having work of breathing. Abdomen: Soft, nontender to palpation. Bowel sounds present. No organomegaly. Extremities: No clubbing or cyanosis, but 2+ pedal edema with venous stasis changes. There is a left knee with less effusion in comparing with yesterday. Neurological: The patient is alert and oriented x3. Moves all 4 extremities. LABORATORY DATA: White cell count 14.62, hemoglobin 9.7, hematocrit 32.0, platelets 356,000. Creatinine is 4.4, BUN 100, potassium is 5.1. ASSESSMENT AND PLAN: 1. Acute diastolic heart failure. I think this patient is stable at this point, not requiring any oxygen supplementation, not short of breath. Considering that he has worsened renal failure, I prefer to hold this Lasix for a couple days and see how he does. 2. Left knee gouty attack. Clinically, this patient is doing much better. Will continue with Solu-Medrol 60 mg intravenously every 8 hours. 3. Acute on chronic kidney disease stage 4. Creatinine is again back to 4.4, with BUN concerning that is [address] Alcaraz from Nephrology has seen this patient. The patient agreed to stay and monitor his renal function, but he expressed his desire of not to be treated. 4. Hypertension. Blood pressure is under control. Will continue with the same management. 5. Disposition. At this point, will continue to monitor renal function and follow recommendations from Nephrology. cc: Jamari Shore MD
[2019-08-01 06:35] LABS: HEMATOCRIT 30.9 % (42.0-52.0); HEMOGLOBIN 9.4 g/dL (14.0-18.0); IMM GRAN# 0.13 X1000 (0.0-0.04); IMM GRAN% 0.5 % (0.0-0.5); LYMPH# 2.05 X1000 (1.2-3.4); LYMPH% 7.9 % (20.5-51.1); MCH 28.1 PG (27-31); MCHC 30.4 g/dL (33-37); MCV 92.5 FL (81-99); MONO# 0.56 X1000 (0.11-0.59); MONO% 2.2 % (1.7-9.3); MPV 10.3 FL (7.4-10.4); NEUT# 23.24 X1000 (1.4-6.5); NEUT% 89.4 % (42.2-75.2); PLT 365 X1000 (130-400); RBC 3.34 XMIL (4.7-6.1); RDW 12.4 % (11.5-14.5); WBC 25.98 X1000 (4.8-10.8)
[2019-08-01 06:48] LABS: ALB/GLOB RATIO 0.7; ALBUMIN 3.1 g/dL (3.5-5.0); CALCIUM 8.4 mg/dL (8.8-10.2); CREATININE 4.5 mg/dL (0.7-1.2); POTASSIUM 4.7 mmol/L (3.5-5.1); TOTAL BILIRUBIN 0.19 mg/dL (0.20-1.00); TOTAL PROTEIN 7.4 g/dL (6.3-8.3)
[2019-08-01] MEDS: PRILOSEC PO SCH ×2 (06:49→20:37)
[2019-08-01] MEDS: SOLU-MEDROL IV SCH ×3 (06:49→22:59)
[2019-08-01 07:03] LABS: LYMPHS 8 % (21-51); SEGS 92 % (42-75)
[2019-08-01] MEDS: VELTASSA PO SCH (08:41)
[2019-08-01] MEDS: HYDROCHLOROTHIAZIDE PO SCH (08:41)
[2019-08-01] MEDS: ASPIRIN EC PO SCH (08:41)
[2019-08-01] MEDS: APRESOLINE PO SCH ×3 (08:41→16:31)
[2019-08-01] MEDS: COREG PO SCH ×2 (08:46→20:37)
--- NOTE | 2019-08-01 13:55 | NEPHROLOGY PROGRESS NOTE ---
DATE: 08/01/2019 TIME SEEN: 0735. SUBJECTIVE: Mr. Torres is resting quietly in bed. States that he has changed his mind in regards with his illness and would like to have a preparation for dialysis in the near future. OBJECTIVE: His most recent vital signs, temperature 98.9 degrees, blood pressure 153/66, heart rate 55, respirations 18. He is on room air. Last recorded saturation 99%. He has had 360 mL in and 1550 out to Poe catheter. Laboratory Data: Sodium 136, potassium 4.7, chloride is 96, CO2 is 17, BUN 125, creatinine 4.5, glucose 162, his anion gap is 17, calcium 8.4, albumin 3.1. White count 25.98, hemoglobin 9.4, hematocrit 30.9, with a platelet count of 365,000. Physical Examination: General: This is an 83-year-old, black male resting quietly in bed. He has no complaints except he continues with left knee pain and positive overall body weakness. HEENT: Normocephalic, atraumatic. Conjunctivae are pale. He has ABDON. Mucous membranes are dry. Neck: Supple. Trachea midline. No evidence of JVD in the upright position. Cardiovascular: Regular rate and rhythm. No murmur or gallop appreciated. Lungs: Clear to auscultation bilaterally. Equal excursion, on room air. Abdomen: Soft, nontender. Positive bowel sounds. Genitourinary: Not inspected. Poe catheter is in place with adequate urine out. Extremities: Continues with 1 to 2+ lower extremity edema, left knee larger than right. Diminished pulses. Continues with dryness to bilateral lower extremities. Neurological: He is alert and oriented x3. ASSESSMENT AND PLAN: 1. Chronic kidney disease stage 4-5. Creatinine remains elevated above his baseline. His BUN remains elevated, now up to 125. He does not have any overt uremic symptoms. Adequate urine output at this time. He has no asterixis. No cardiac rub. He states at this time that he will accept dialysis. We have discussed vein mapping for possible placement of an arteriovenous fistula in the next 2 weeks. The patient is acceptable. 2. Electrolytes and acid-base balance. Hyperkalemia has improved with a potassium of 4.7, CO2 stable. 3. Fluid volume status. Patient has had modest volume expansion. Continues on his Lasix. 4. Anemia. This is close to target. No indications for intervention. 5. Fluid volume overload. Patient does remain on Lasix as indicated. We will continue to monitor his intakes and outputs. I would like to thank you for allowing us to follow with this patient. Dictated by GWENDOLYN Bender for Lopez Alcaraz MD Face to face encounter, data reviewed, discussed with Randall Jenkins on 08/01/19. I agree with the above assessment and plan of care. cc: GWENDOLYN Bender MD [facility]
--- NOTE | 2019-08-01 16:41 | PROGRESS NOTE ---
DATE: 08/01/2019 SUBJECTIVE: The patient reports pain in the left knee is getting better. OBJECTIVE: Vital Signs: Temperature 97.7 degrees, heart rate 54, respiratory rate 18, blood pressure 135/65. O2 saturation 100% on room air. General: This is an 83-year-old, male, lying in bed, in no acute distress. Cardiovascular: S1, S2 heard. No murmurs, gallops, or rubs. Regular rate and rhythm. Respiratory: Clear bilaterally to auscultation. No work of breathing or using accessory muscles. Abdomen: Soft, nontender to palpation. Bowel sounds present. No organomegaly. Extremities: No clubbing, cyanosis, or edema. No clubbing or cyanosis, but there is 2+ pitting edema with venous stasis changes. There is less fusion in the left knee compared with yesterday. Neurological: The patient is alert and oriented x3. Moves 4 extremities. LABORATORY DATA: Reviewed. ASSESSMENT AND PLAN: 1. Acute diastolic heart failure. I think this condition is getting better. He has been on Lasix before and here he has been receiving Lasix 80 mg IV q.12 hours. Considering the worsening renal failure we decided to hold this medication for now considering that clinically he is doing fine from this problem. He is not complaining of any shortness of breath. He is not requiring any oxygen supplementation. So, we will continue holding Lasix for now. 2. Acute on chronic kidney disease stage 4. Creatinine unfortunately continues to be the same. But BUN is very concerning because is 125 today. Although the initially the patient said that he is going to refuse any dialysis according to according to Nephrology, he is going to need dialysis so he agreed to have vein mapping for possible placement of arterial venous fistula in the next couple weeks. At this point, patient is stable. He does not have any clear uremic symptoms. We will continue to monitor BMP daily. 3. Left knee gouty attack. Clinically, patient is doing fine. I will decrease the doses of Solu- Medrol from 60 mg IV q.12h q8 hours to 40 mg IV q.12 hours. That is also causing leukocytosis. 4. Hypertension. Blood pressure is under control. We will continue with same management. DISPOSITION: At this point, we will continue to monitor renal function daily. We will continue following recommendations from Nephrology. cc: Jamari Shore MD [facility]
[2019-08-02 05:39] LABS: BASO# 0.01 X1000 (0.0-0.2); HEMOGLOBIN 9.5 g/dL (14.0-18.0); IMM GRAN# 0.14 X1000 (0.0-0.04); IMM GRAN% 0.6 % (0.0-0.5); LYMPH# 1.47 X1000 (1.2-3.4); LYMPH% 6.6 % (20.5-51.1); MCH 28.2 PG (27-31); MCHC 30.6 g/dL (33-37); MONO# 0.55 X1000 (0.11-0.59); MONO% 2.5 % (1.7-9.3); MPV 10.2 FL (7.4-10.4); NEUT# 20.24 X1000 (1.4-6.5); NEUT% 90.3 % (42.2-75.2); PLT 348 X1000 (130-400); RBC 3.37 XMIL (4.7-6.1); RDW 12.5 % (11.5-14.5); WBC 22.41 X1000 (4.8-10.8)
[2019-08-02] MEDS: SOLU-MEDROL IV SCH ×3 (06:02→21:49)
[2019-08-02] MEDS: PRILOSEC PO SCH ×2 (06:02→21:49)
[2019-08-02 06:20] LABS: AGAP 20; ALB/GLOB RATIO 0.8; ALBUMIN 3.1 g/dL (3.5-5.0); ALKALINE PHOSPHATASE 68 U/L (32-122); BUN 135 mg/dL (8-22); CHLORIDE 99 mmol/L (98-107); COSMO 321; CREATININE 4.5 mg/dL (0.7-1.2); ESTIMATED GFR 15; GLUCOSE 186 mg/dL (70-104); GOT 10 U/L (10-34); GPT 11 U/L (10-44); MAGNESIUM 2.2 mg/dL (1.5-2.7); POTASSIUM 4.6 mmol/L (3.5-5.1); SODIUM 136 mmol/L (136-145); TCO2 17 mmol/L (25-35); TOTAL BILIRUBIN < 0.15 mg/dL (0.20-1.00)
[2019-08-02 07:49] LABS: BANDS 2 % (0-1); LYMPHS 2 % (21-51); SEGS 96 % (42-75)
[2019-08-02] MEDS: COREG PO SCH ×2 (09:30→21:49)
[2019-08-02] MEDS: HYDROCHLOROTHIAZIDE PO SCH (09:30)
[2019-08-02] MEDS: VELTASSA PO SCH (09:30)
[2019-08-02] MEDS: ASPIRIN EC PO SCH (09:30)
[2019-08-02] MEDS: APRESOLINE PO SCH ×3 (09:30→17:03)
[2019-08-02] MEDS: LASIX IV SCH ×2 (09:43→21:49)
--- NOTE | 2019-08-02 11:31 | PROGRESS NOTE ---
DATE: 08/02/2019 SUBJECTIVE: The patient reports feeling fine. No shortness of breath. No nausea or vomiting. OBJECTIVE: Vital Signs: Temperature 97.6 degrees, heart rate 53, respiratory rate 18, blood pressure 149/69, O2 saturation 99% on room air. General: This is a chronically ill-appearing, 83- year-old, male, lying in bed in no acute distress. Cardiovascular: S1, S2 heard. No murmurs, gallops, or rubs. Regular rate and rhythm. Respiratory: Clear bilaterally to auscultation. No work of breathing or using accessory muscles. Abdomen: Soft, nontender to palpation. Bowel sounds present. No organomegaly. Extremities: No clubbing or cyanosis, but there is 2+ pitting edema in both lower extremities, with signs of venous insufficiency. Less effusion in the left knee. Neurological: The patient is alert and oriented x3. Moves all 4 extremities. LABORATORY DATA: Reviewed. ASSESSMENT AND PLAN: 1. Acute on chronic kidney disease stage 4. BUN continues to get higher. Today, it is 135, and yesterday was 125. Nephrology is following this patient. He had vein mapping yesterday. Will see when they are planning to do dialysis. Will continue to monitor. 2. Acute diastolic heart failure. I think this condition is stable. Will continue to monitor. Lasix has been discontinued because of worsening renal failure. 3. Left knee gouty attack. The patient is on Solu-Medrol intravenously. Will follow recommendations from Nephrology. Currently receiving 40 mg intravenously every 12 hours. Will continue with the same management. Leukocytosis that is secondary to this is improving. Will continue to monitor. 4. Hypertension. Blood pressure is under control. Will continue with the same management. 5. Disposition. Will continue to monitor this patient closely. cc: Jamari Shore MD
--- NOTE | 2019-08-02 13:08 | Extremity Venous Study ---
PROCEDURE NAME: Venous U/S Bilateral Legs - 07/29/2019 REQUESTING PHYSICIAN: Roger Katz FELTER TENNIS BALLS: Malgorzata. INDICATIONS: Edema, pain and elevated D-dimer. EQUIPMENT: Booster Vivid E9 ultrasound system with a 9 L-D transducer. FINDINGS: Images of bilateral lower extremity venous systems were obtained in both sagittal and transverse planes. Doppler was used to evaluate veins for spontaneity, phasicity, respiratory excursion, and digital augmentation. RESULTS: Normal venous compression, normal venous flow. No obvious superficial or deep venous thrombosis noted. INTERPRETATION: Essentially normal bilateral lower extremity venous study. cc: Bright Moore MD
--- NOTE | 2019-08-02 14:18 | Extremity Venous Study ---
PROCEDURE NAME: Vein Map/Hemodialysis Constantin Arms - 08/01/2019 REQUESTING PHYSICIAN: Dr. Alcaraz. ASSOCIATE PROFESSOR OF THEATRE: Mai. INDICATIONS: Evaluate for dialysis access. EQUIPMENT: Apparityid E9 ultrasound system with a 9 L-D transducer. FINDINGS: Of note, the patient is right-handed. On the right side, the patient's cephalic vein has thick neal. It measures 1.3 at the wrist. It increases in size to 2.1 at the antecubital fossa but then stays below 2. The basilic vein on the right side measures 1.7 at the wrist and does not increase to 2 until the upper arm. On the left side, the cephalic vein has thick neal throughout its entirety of its course and does not increase above 2 throughout the entirety of its length, even with the tourniquet on. The basilic vein has a maximal diameter of 2.3. INTERPRETATION: The patient is not a candidate for percutaneous intervention. The patient also has poor vein selection and may need to have an AV graft. If wanting to avoid an AV graft, the cephalic vein is only a marginal candidate. It does have thick neal on the left side. cc: MD Sheridan Amaral CRNP
--- NOTE | 2019-08-02 21:07 | PROVIDER PROGRESS NOTE ---
Progress Note Subjective: Mr. Torres has no complaints. He denies shortness of breath, nausea and vomiting, or chest pain. Got up with therapy yesterday. Objective: temperature 97.6, pulse 53, respirations 18, blood pressure 149/69, 02 sat 99% on room air. General elderly -[place] man lying in bed in no acute distress. HEENT: normocephalic, atraumatic. Pupils equal and reactive. Mucous membranes dry. Skin: warm and dry, thick scales to the posterior side of the right leg. Neck: Supple, 6 cm JVD Cardiovascular: S1S2, regular rate and rhythm. No murmur gallop noted. Respiratory: diminished left base anteriorly. Abdomen: soft, obese, nontender. Protrusion to the mid upper to right abdominal region. : Poe in place with clear yellow urine. Extremities: right > left BLE edema. Neurological: alert and oriented to person, place, and time. Labs: WBC 22.41, hemoglobin 9.5, hematocrit 31, platelet count 348, sodium 136, potassium 4.6, chloride 99, carbon dioxide 17, BUN 135, creatinine 4.5, total Bilirubin less than 0.15. Intake zero, output 2049. Impression: Chronic kidney disease stage 4-5. His creatinine is stable at 4.5 with a BUN that is continuously rising. He denies any uremic complaints. He is still on board with a renal replacement therapy if needed. Vein mapping suggests he would be a poor fistula candidate. We will refer for graft placement. Blood pressure. Stable. Fluid volume. Improving. Anemia. Stable. Electrolytes. Stable. Acid base balance. Acidotic. Add Sodium Bicarbonate 650mg BID Nutrition. Excellent.
[2019-08-03 06:02] LABS: BASO# 0.02 X1000 (0.0-0.2); BASO% 0.1 % (0.0-0.8); EOS# 0.04 X1000 (0.0-0.7); EOS% 0.2 % (0.0-10.0); HEMATOCRIT 33.2 % (42.0-52.0); HEMOGLOBIN 9.8 g/dL (14.0-18.0); IMM GRAN# 0.34 X1000 (0.0-0.04); IMM GRAN% 1.5 % (0.0-0.5); LYMPH# 1.34 X1000 (1.2-3.4); LYMPH% 5.9 % (20.5-51.1); MCH 28.3 PG (27-31); MCHC 29.5 g/dL (33-37); MONO# 0.68 X1000 (0.11-0.59); MPV 10.2 FL (7.4-10.4); NEUT# 20.24 X1000 (1.4-6.5); NEUT% 89.3 % (42.2-75.2); PLT 285 X1000 (130-400); RBC 3.46 XMIL (4.7-6.1); RDW 12.8 % (11.5-14.5); WBC 22.66 X1000 (4.8-10.8)
[2019-08-03] MEDS: PRILOSEC PO SCH ×2 (06:21→20:27)
[2019-08-03] MEDS: SOLU-MEDROL IV SCH (06:21)
[2019-08-03 07:31] LABS: AGAP 23; ALB/GLOB RATIO 0.6; ALBUMIN 2.7 g/dL (3.5-5.0); ALKALINE PHOSPHATASE 63 U/L (32-122); CALCIUM 7.9 mg/dL (8.8-10.2); CHLORIDE 94 mmol/L (98-107); COSMO 318; CREATININE 4.5 mg/dL (0.7-1.2); ESTIMATED GFR 15; GLUCOSE 238 mg/dL (70-104); GOT 10 U/L (10-34); GPT 11 U/L (10-44); MAGNESIUM 2.1 mg/dL (1.5-2.7); POTASSIUM 4.3 mmol/L (3.5-5.1); SODIUM 130 mmol/L (136-145); TCO2 13 mmol/L (25-35); TOTAL BILIRUBIN < 0.15 mg/dL (0.20-1.00); TOTAL PROTEIN 7.1 g/dL (6.3-8.3)
[2019-08-03 07:42] LABS: BUN 153 mg/dL (8-22)
[2019-08-03 07:53] LABS: LYMPHS 6 % (21-51); MONO 1 % (1-9); SEGS 93 % (42-75)
[2019-08-03] MEDS: APRESOLINE PO SCH ×3 (09:02→17:16)
[2019-08-03] MEDS: LASIX IV SCH ×2 (09:03→20:27)
[2019-08-03] MEDS: ASPIRIN EC PO SCH (09:03)
[2019-08-03] MEDS: HYDROCHLOROTHIAZIDE PO SCH (09:03)
[2019-08-03] MEDS: VELTASSA PO SCH (09:04)
[2019-08-03] MEDS: SODIUM BICARBONATE PO SCH ×2 (09:04→20:27)
[2019-08-03] MEDS: COREG PO SCH ×2 (09:04→20:27)
--- NOTE | 2019-08-03 11:13 | PROGRESS NOTE ---
DATE: 08/03/2019 SUBJECTIVE: Patient reports feeling fine. No shortness of breath. Not requiring any oxygen supplementation. No nausea and vomiting. The patient is oriented. Awake. OBJECTIVE: Vital Signs: Temperature 97.9 degrees, heart rate 55, respiratory rate 18, blood pressure 140/60. O2 saturation 100% on room air. General: This is an 83-year-old male, lying in bed, in no acute distress. Cardiovascular: S1, S2 heard. No murmurs, gallops, or rubs. Regular rate and rhythm. Respiratory: Clear bilaterally to auscultation. No work of breathing or using accessory muscles. Abdomen: Soft, nontender to palpation. Bowel sounds present. No organomegaly. Extremities: No clubbing, cyanosis. There is 2 +pedal edema in both lower extremities. There is definitely almost no effusion in the left knee. Neurological: Patient alert and oriented x3. Moves 4 extremities. LABORATORY DATA: Reviewed. ASSESSMENT AND PLAN: 1. Acute on chronic kidney disease stage 4. BUN continues to get higher. At this point, Nephrology is planning to place vascular access for this patient. We will do most likely tunnel catheter. Patient is completely okay to whatever procedure we may need to do, okay of course, with dialysis. 2. Acute diastolic heart failure. This condition is stable. We have held Lasix for now. Patient doing okay. We will continue with the same management. 3. Left knee gouty attack. The patient has been on Solu-Medrol for 3 days and his knee has been remarkably swollen as mentioned but now is almost normal. At this point, we will stop the Solu-Medrol. Will keep checking CBC daily. I am expecting to have less leukocytosis tomorrow. 4. Hypertension. Blood pressure is under control. We will continue with the same management. 5. Disposition following lead from Nephrology. cc: Jamari Shore MD
--- NOTE | 2019-08-03 18:01 | PROVIDER PROGRESS NOTE ---
Progress Note Subjective: Mr. Torres has no complaints. He denies shortness of breath, nausea and vomiting, or chest pain. He says he participates in therapy. Objective: temperature 97.9, pulse 58, respirations 17, blood pressure 185/54, O2 sat 100% on room air. General elderly -[place] man lying in bed in no acute distress. HEENT: normocephalic, atraumatic. Pupils equal and reactive, lipoma noted to right eye. Mucous membranes moist. Skin: warm and dry, thick scales to the posterior side of the right leg. Neck: Supple, 6 cm JVD Cardiovascular: S1S2, regular rate and rhythm. No murmur gallop noted. Respiratory: diminished bases anteriorly. Abdomen: soft, obese, nontender. Protrusion to the mid upper to right abdominal region. : Suprapubic catheter in place with clear yellow urine. Extremities: right > left BLE edema. Neurological: alert and oriented to person, place, and time. Labs: WBC 22.66, hemoglobin 9.8, hematocrit 33.2, platelet count 285, sodium 130, potassium 4.3, chloride 94, carbon dioxide 13, anion gap 23, BUN 153, creatinine 4.5, intake 0 output 2450 Impression: Chronic kidney disease stage 5. His creatinine remains at 4.5 with an increasing BUN. He denies any uremic complaints and states he is feeling well. BUN is now above 150. I discussed access needs with Dr. Dillon. rg Blood pressure. Above target. Fluid volume. Stable. Anemia. Stable. Electrolytes. Stable. Acid base balance. Acidotic.Sodium Bicarbonate started yesterday. Nutrition. Excellent.
[2019-08-03] MEDS: ZOFRAN IV PRN (23:43)
--- NOTE | 2019-08-04 05:27 | GENERAL SURGERY CONSULTATION ---
DATE: 08/03/2019 REASON FOR CONSULTATION: Tunnel dialysis catheter placement and insertion of arteriovenous graft. REQUESTING PHYSICIAN: Lopez Alcaraz MD. CONSULTING PHYSICIAN: Pancho Reece MD. HISTORY OF PRESENT ILLNESS: This is an 83-year-old male with chronic kidney disease stage 4, now apparently stage 5, with a history of hypertension and congestive heart failure. He has had rising BUN. He also has chronic lower extremity swelling and progressive weakness. He has actually been unable to ambulate prior to admission. He now will require hemodialysis and we have been consulted for access. PAST MEDICAL HISTORY: As above in the HPI. PAST SURGICAL HISTORY: None. HOME MEDICATIONS: Omeprazole, carvedilol, hydralazine, hydrochlorothiazide, aspirin, furosemide. ALLERGIES: No known drug allergies. SOCIAL HISTORY: He is single and lives alone. He denies tobacco or alcohol use. FAMILY HISTORY: Reviewed and noncontributory. REVIEW OF SYSTEMS: Ten systems reviewed and negative except as noted above. PHYSICAL EXAMINATION: Vital Signs: Temperature 97.6 degrees, pulse 51, respirations 18, blood pressure 159/69, O2 saturation 100%. General: A well-developed elderly male in no acute distress who looks his stated age. HEENT: Normocephalic, atraumatic. Extraocular muscles intact. Pupils are equal, round, and reactive to light. Sclerae anicteric. Moist mucous membranes. Hearing grossly normal. No oral lesions. Neck: Supple. No thyromegaly. CV: Regular rate and rhythm. Respiratory: Bilateral breath sounds. No work of breathing. GI: Soft, nontender, nondistended. Extremities: No clubbing or cyanosis, but there is bilateral lower extremity edema. Skin: Warm and dry. No rash. LABORATORY DATA: White blood cell count 22, hemoglobin 9.8, hematocrit 33. Electrolytes reviewed, notable for sodium of 130, BUN 153, creatinine 4.5. ASSESSMENT AND PLAN: Progressive chronic kidney disease now approaching stage 5. He will need dialysis access per the request of Dr. Alcaraz. We will plan a tunneled dialysis catheter placement as well as left arm AV graft creation. His vein mapping revealed no suitable superficial veins for fistula creation. I discussed the risks and benefits with him including bleeding, infection, catheter or graft malfunction, pneumothorax, and other imponderables. He understands and agrees to proceed. It appears that Thursday08/05/2019 will be the date of surgery. cc: Pancho Reece MD
[2019-08-04 06:02] LABS: BASO# 0.02 X1000 (0.0-0.2); BASO% 0.1 % (0.0-0.8); HEMATOCRIT 34.5 % (42.0-52.0); HEMOGLOBIN 10.8 g/dL (14.0-18.0); IMM GRAN# 0.27 X1000 (0.0-0.04); LYMPH# 3.32 X1000 (1.2-3.4); LYMPH% 12.3 % (20.5-51.1); MCHC 31.3 g/dL (33-37); MCV 89.4 FL (81-99); MONO# 2.38 X1000 (0.11-0.59); MONO% 8.8 % (1.7-9.3); MPV 10.6 FL (7.4-10.4); NEUT# 21.11 X1000 (1.4-6.5); NEUT% 77.8 % (42.2-75.2); PLT 391 X1000 (130-400); RBC 3.86 XMIL (4.7-6.1); RDW 12.6 % (11.5-14.5)
[2019-08-04] MEDS: PRILOSEC PO SCH ×2 (06:08→21:05)
[2019-08-04 06:30] LABS: ALB/GLOB RATIO 0.8; ALBUMIN 3.3 g/dL (3.5-5.0); CALCIUM 8.1 mg/dL (8.8-10.2); CREATININE 4.1 mg/dL (0.7-1.2); MAGNESIUM 2.1 mg/dL (1.5-2.7); POTASSIUM 4.1 mmol/L (3.5-5.1); TOTAL BILIRUBIN 0.2 mg/dL (0.20-1.00); TOTAL PROTEIN 7.3 g/dL (6.3-8.3)
[2019-08-04] MEDS: ZOFRAN IV PRN ×2 (06:55→12:02)
[2019-08-04] MEDS ORDERED: SOLU-MEDROL IV SCH (09:00)
[2019-08-04] MEDS: LASIX IV SCH (09:39)
[2019-08-04] MEDS: COREG PO SCH ×2 (09:40→21:06)
[2019-08-04] MEDS: SODIUM BICARBONATE PO SCH ×2 (09:40→21:05)
[2019-08-04] MEDS: APRESOLINE PO SCH ×3 (09:40→19:19)
[2019-08-04] MEDS: HYDROCHLOROTHIAZIDE PO SCH (09:40)
[2019-08-04] MEDS: ASPIRIN EC PO SCH (09:40)
[2019-08-04] MEDS: TYLENOL PO PRN (12:02)
--- NOTE | 2019-08-04 14:16 | PROGRESS NOTE ---
DATE: 08/04/2019 SUBJECTIVE: Patient reports not feeling well. He is feeling more nauseated and sometimes confused at that time. He reports feeling overall not good. OBJECTIVE: Vital Signs: Temperature 97.9 degrees, heart rate 60, respiratory rate 18, blood pressure 168/86, and O2 saturation 100% on room air. General: This is an 83-year-old male lying in bed in no acute distress. A little bit more confused today. Cardiovascular: S1, S2 heard. No murmurs, gallops, or rubs. Regular rate and rhythm. Respiratory: Clear bilaterally to auscultation. No work of breathing or using accessory muscles. Abdomen: Soft, nontender to palpation. Bowel sounds present. No organomegaly. There is no effusion of the left knee. Neurological: Patient is more confused, answers questions appropriately and complaining of headaches. Moves all 4 extremities spontaneously. LABORATORY DATA: BMP reveals BUN 158 with creatinine of 4.1. White cell count 27.1. ASSESSMENT AND PLAN: 1. Acute on chronic kidney disease stage 5. BUN continues to be high. It looks that this patient is becoming uremic. At this point, plan from nephrology is to place a tunneled catheter tomorrow. We will leave the decision to nephrology to decide when he is going to be dialyzed. At this point, we will continue to monitor this patient closely checking BMP daily. 2. Acute diastolic heart failure. That condition is stable. We are going to continue holding Lasix. For now, he has been on 40 mg IV q.12 hours because of worsening BUN. We will check an x-ray to see what the lungs look like. 3. Left knee gouty attack. Patient has been on Solu-Medrol for a few days. Now, that condition is resolved. We have stopped Solu-Medrol yesterday, and that is the reason why he has leukocytosis. I expect to have much better leukocyte count tomorrow. 4. Hypertension/ blood pressure is under control. We will continue with the same management. 5. Disposition. At this point, following leads from Nephrology. cc: Jamari Shore MD
--- NOTE | 2019-08-04 14:31 | PROVIDER PROGRESS NOTE ---
Progress Note Subjective: Hes complaining of nausea that started around breakfast time yesterday morning. He has had a little relief with PRN medications. Mr. Torres has had very little intake since the nausea began.He denies chest pain and shortness of breath. Objective: temperature 97.7, pulse 54, blood pressure 141/87, O2 sat 100% on room air. General elderly -[place]ian man lying in bed in some GI distress. HEENT: normocephalic, atraumatic. Pupils equal and reactive, lipoma noted to right eye. Mucous membranes dry. Skin: warm and dry, thick scales to the posterior side of the right leg. Neck: Supple, 6 cm JVD Cardiovascular: S1S2, regular rate and rhythm. No murmur gallop noted. Respiratory: diminished bases anteriorly. Abdomen: soft, obese, nontender. Protrusion to the mid upper to right abdominal region. : Suprapubic catheter in place with clear yellow urine. Extremities: trace edema to the BLE. Neurological: alert and oriented to person, place, and time. Labs: WBC 27.1, hemoglobin 10.8, hematocrit 34.5, platelet count 391, sodium 138, potassium 4.1, chloride 98, carbon dioxide 18, BUN 158, creatinine 4.1, intake 360, output 2900. Impression: Chronic kidney disease stage 5. His Creatinine and BUN remain elevated. He is showing uremic symptoms today and is scheduled for dialysis access tomorrow. Following placement we plan for Renal replacement therapy. Mr. Torres is in agreeable with his plan of care. Blood pressure. In target. Fluid volume. Stable. Anemia. Stable. Electrolytes. Stable. Acid base balance. Improving with sodium bicarbonate. Nutrition. Adequate given 24 hours of nausea. Medication review.
[2019-08-04] MEDS: VELTASSA PO SCH (15:42)
--- NOTE | 2019-08-04 22:23 | GENERAL SURGERY PROGRESS NOTE ---
DATE: 08/04/2019 SUBJECTIVE: The patient has had no acute events or complaints or changes overnight. OBJECTIVE: He is afebrile. Vital signs are stable.General: He is awake, alert, oriented x3. No acute distress. Extremities: The left arm was examined. There is a good brachial pulse. There is no edema. He also has a palpable left radial pulse at the wrist. CV: Regular rate and rhythm. Respiratory: No work of breathing. LABORATORY: White cell count 27,000, hemoglobin 10.8, hematocrit 34.5. Electrolytes reviewed and notable for BUN 158, creatinine 4.1, potassium is 4.1. ASSESSMENT/PLAN: An 83-year-old male with worsening chronic kidney disease now requiring hemodialysis. We are planning tunneled dialysis catheter placement as well as left arm AV graft tomorrow. We have gone over the risks and benefits with him. He understands and agrees to proceed. cc: Pancho Reece MD
[2019-08-05 05:28] LABS: BASO# 0.02 X1000 (0.0-0.2); BASO% 0.1 % (0.0-0.8); HEMATOCRIT 35.4 % (42.0-52.0); HEMOGLOBIN 11.3 g/dL (14.0-18.0); IMM GRAN# 0.18 X1000 (0.0-0.04); IMM GRAN% 0.8 % (0.0-0.5); LYMPH# 3.31 X1000 (1.2-3.4); LYMPH% 14.2 % (20.5-51.1); MCH 28.5 PG (27-31); MCHC 31.9 g/dL (33-37); MCV 89.2 FL (81-99); MPV 10.8 FL (7.4-10.4); NEUT# 17.72 X1000 (1.4-6.5); NEUT% 75.9 % (42.2-75.2); PLT 371 X1000 (130-400); RBC 3.97 XMIL (4.7-6.1); RDW 12.7 % (11.5-14.5); WBC 23.33 X1000 (4.8-10.8)
[2019-08-05 05:53] LABS: LYMPHS 17 % (21-51); MONO 8 % (1-9); SEGS 75 % (42-75)
[2019-08-05 06:01] LABS: ALB/GLOB RATIO 0.7; ALBUMIN 3.1 g/dL (3.5-5.0); CALCIUM 8.9 mg/dL (8.8-10.2); CREATININE 4.2 mg/dL (0.7-1.2); PHOSPHORUS 6.3 mg/dL (2.7-4.5); POTASSIUM 4.6 mmol/L (3.5-5.1); TOTAL BILIRUBIN 0.24 mg/dL (0.20-1.00); TOTAL PROTEIN 7.4 g/dL (6.3-8.3)
[2019-08-05] MEDS: PRILOSEC PO SCH ×2 (06:20→20:49)
[2019-08-05] MEDS ORDERED: NS 2,000 ML MISC PRN (06:29)
[2019-08-05] MEDS ORDERED: HEPARIN IV PRN (06:29)
[2019-08-05] MEDS ORDERED: TIGHT: 0.2 ML/HR FOR DIALYSIS MISC PRN (06:29)
[2019-08-05] MEDS: COREG PO SCH ×2 (08:46→22:06)
[2019-08-05] MEDS: APRESOLINE PO SCH ×3 (08:46→18:34)
[2019-08-05] MEDS: SODIUM BICARBONATE PO SCH ×2 (08:46→20:49)
[2019-08-05] MEDS: HYDROCHLOROTHIAZIDE PO SCH (08:46)
[2019-08-05] MEDS: ASPIRIN EC PO SCH (08:51)
--- NOTE | 2019-08-05 10:13 | Diag Imaging Result Doc PS360 ---
EXAM: CHEST-2 VIEWS 08/05/2019 HISTORY: pulmonary edema TECHNIQUE: Two views AP upright and sitting lateral COMMENT: Considering differences in inspiration and technique are has been no significant change since 07/29/2019. There is no evidence of acute pulmonary disease. IMPRESSION: Stable chest. Electronically signed by Augs Cormier 08/05/2019 10:10 AM
[2019-08-05] MEDS ORDERED: XYLOCAINE-MPF 2% ONE (12:57)
[2019-08-05] MEDS ORDERED: ROBINUL ONE ×2 (12:57→13:32)
[2019-08-05] MEDS ORDERED: DIPRIVAN 1% ONE (12:57)
[2019-08-05] MEDS ORDERED: KEFZOL 1 GM/D5W 2 GM/100 ML IVPB ONE (13:15)
[2019-08-05] MEDS ORDERED: NEO-SYNEPHRINE ONE (13:32)
[2019-08-05] MEDS ORDERED: SODIUM CHLORIDE 0.9% 20 ML ONE (13:32)
[2019-08-05] MEDS ORDERED: HEPARIN ONE (13:34)
[2019-08-05] MEDS ORDERED: XYLOCAINE 1%/EPI 1:100,000 ONE (13:34)
[2019-08-05] MEDS ORDERED: NS 250 ML ONE (13:35)
[2019-08-05] MEDS ORDERED: NS 1,000 ML ONE (13:35)
[2019-08-05 13:49] LABS: BODY FLUID SOURCE SYNOVIAL FLUID
[2019-08-05 13:54] LABS: MONOS 12 %; POLYS 88 %
[2019-08-05] MEDS ORDERED: KEFZOL 2 GM/D5W 2 GM/50 ML IVPB IV ONE (14:00)
[2019-08-05] MEDS ORDERED: ZOFRAN ONE (14:26)
[2019-08-05] MEDS ORDERED: FENTANYL ONE (14:42)
[2019-08-05 15:19] LABS: WBC BF 18436 /cumm
[2019-08-05] MEDS ORDERED: HEPARIN (DOSE) ONE (15:27)
--- NOTE | 2019-08-05 16:20 | NEPHROLOGY PROGRESS NOTE ---
DATE: 08/05/2019 SUBJECTIVE: He is lying in bed. No acute distress. He has not been for surgery yet today. He has plans for a tunneled catheter and a graft placement. Dialysis today for the first time for 2 hours is the plan. His nausea and vomiting are improved today. OBJECTIVE: Vital Signs: Blood pressure 140/54, heart rate 69, respirations 15, afebrile. General: In no acute distress. Skin: Warm and dry. Neck: Neck veins are not distended. Oropharynx is moist. Heart: Regular. No rubs. Lungs: Equal. No crackles. Abdomen: Soft, nontender. Bowel sounds present. Extremities: 2+ edema. No clubbing or cyanosis. IMPRESSION: 1. Chronic kidney disease stage 5. Access plan as above today. Dialysis today for 2 hours using a 2 potassium bath and a goal of 1 L ultrafiltration. 2. Left knee pain. Will ask orthopedics to examine. 3. Electrolytes/acid base acceptable. 4. Anemia in target. cc: Lopez Alcaraz MD
[2019-08-05] MEDS: VELTASSA PO SCH (16:51)
[2019-08-05] MEDS: DILAUDID ONE ×4 (17:20→17:29)
--- NOTE | 2019-08-05 17:43 | OPERATIVE NOTE ---
PROCEDURE DATE: PREOPERATIVE DIAGNOSIS: Synovitis with effusion, left knee. POSTOP DIAGNOSIS: Synovitis with effusion, left knee. PROCEDURE: Arthrocentesis left knee. SURGEON: Robbie Marrero MD. COMPLICATION: None. PROCEDURE IN DETAIL: 83-year-old male with a painful left swollen knee presents for arthrocentesis of the knee. Risks, benefits were discussed. He was at the bedside sterilely prepped and draped over the lateral aspect of the knee. Permission was obtained. A time-out was taken to confirm operative site, procedure, and extremity. Afterwards, an 18-gauge needle was inserted through the superior lateral retinaculum into the suprapatellar pouch. Roughly 20 mL of straw-colored fluid was obtained from the knee without complication. Needle was withdrawn. The area bandaged with gauze and Band-Aid. The specimen was sent to the laboratory for cell count, crystal analysis and culture analysis. He tolerated the procedure well. There were no complications. cc: Uzair Marrero MD
[2019-08-05] MEDS ORDERED: DILAUDID IV PRN (17:52)
[2019-08-05] MEDS ORDERED: NORCO-10 PO ONE (17:52)
--- NOTE | 2019-08-05 18:00 | ORTHOPAEDICS CONSULTATION ---
DATE: 08/05/2019 REASON FOR CONSULTATION: Left knee pain and swelling. HISTORY OF PRESENT ILLNESS: Mr. Torres is an 83-year-old male with a past medical history of chronic kidney disease, primary essential hypertension and heart disease who presented to [facility] with 2 weeks of leg swelling and weakness. He says it got to where he felt like he could not walk. The left knee is painful with range of motion. He states the knee has been swollen and painful for over a year. He says he does have a history of gout and believes this may be the cause of his pain. Orthopedics has been consulted for management of the left knee. He denies a fall or any specific injury to the knee. PAST MEDICAL HISTORY: 1. Primary essential hypertension. 2. Coronary artery disease. 3. Chronic kidney disease. PAST SURGICAL HISTORY: Suprapubic catheter. FAMILY HISTORY: Noncontributory. SOCIAL HISTORY: Denies tobacco, alcohol, or illicit drug use. He has a very attentive family. ALLERGIES: No known drug allergies. REVIEW OF SYSTEMS: A 10 point review of system was completed and negative except as mentioned above HPI. PHYSICAL EXAM: Vital Signs: Temperature 98.4 degrees, pulse 69, respirations 16, blood pressure 140/54, he is 100% on room air. Neurological: He is alert and oriented x3. Answers questions appropriately. HEENT: Head is atraumatic, normocephalic. Pupils equal, round, react to light. CV: Regular rate and rhythm. Pulmonary: Breathing is even, unlabored. Equal chest expansion. Abdomen: Appears nondistended. Left lower extremity exam, the knee does have quite a bit of effusion on it. It is tender to touch. He does have pain with range of motion. He has trouble getting to full extension. There is no erythema present. There are no skin ulcerations or abrasions. ASSESSMENT: Left knee effusion with pain. PLAN: We will plan to do a bedside joint aspiration today with Dr. Marrero. Dr. Marrero discussed this with the patient and family and they all wished to proceed. About 25 mL of clear synovial fluid was removed. It did appear that there was crystals in the fluid. It did not look purulent. We will send that off for culture. We will send it for culture and sensitivity, Gram stain, crystals and cell count. If all that comes back relatively normal, we will treat him with anti- inflammatories and steroids as allowed by the medical team. If it comes back positive for infection we will plan to do an irrigation, debridement. Further treatment will depend on the results of the joint aspirate. Dictated by GWENDOLYN Ruiz for Uzair Marrero MD cc: GWENDOLYN Ruiz MD
--- NOTE | 2019-08-05 21:44 | OPERATIVE NOTE ---
PROCEDURE DATE: 08/05/2019 PREOPERATIVE DIAGNOSIS: Endstage renal disease. POSTOP DIAGNOSIS: Endstage renal disease. PROCEDURE: 1. Creation of left brachioaxillary arteriovenous graft. 2. Insertion of tunneled hemodialysis catheter with fluoroscopic and ultrasound guidance. SURGEON: Pancho Reece MD. ANESTHESIA: General. ESTIMATED BLOOD LOSS: 50 mL. COMPLICATIONS: None apparent. SPECIMENS: None. FINDINGS: There was flow in the graft at the conclusion of the anastomoses. The right internal jugular vein was found with ultrasound to be compressible, patent without thrombus. Fluoroscopy revealed proper placement of the wire followed by the catheter to the superior vena cava right atrial junction. TECHNIQUE: The patient was brought to the operating room and placed supine on the table with the left arm abducted. His left arm was prepped and draped in usual sterile fashion. Incision was made transversely over the distal upper arm where the brachial artery was palpable. Dissection was carried down through the subcutaneous tissues with cautery and Metzenbaum scissors to the brachial artery. It was dissected out with Metzenbaum scissors and vessel loops were placed around it proximally and distally but we did not occlude it at this time. I then made an incision in the medial upper arm in the same fashion and dissected down through the subcutaneous tissues in a similar fashion. We found the axillary vein, while dissecting it out a small branch sheared off and I repaired the vein where the branch had sheared off with a byyzhz-fu-wrliu 7-0 Prolene. I then dissected around it proximally and distally and put a vessel loop around it distally. I then used the tunneling device to create a subcutaneous tunnel between the 2 incisions and brought a 4 to 7 mm Creola-Amandeep step graft tied to the tunneler into the subcutaneous tunnel. The tunneler was removed. The arterial end was cut at an angle. I then had the field assessor give the patient 5000 units of heparin. We let this circulate. I then obtained proximal and distal control with vessel loops, made an arteriotomy with 11 blade and Fraser scissors. I then widened the arteriotomy with a 3.5 mm punch. I then created a end-to-side anastomosis using 5-0 Creola-Amandeep in a running fashion . At the conclusion I restored flow through the brachial artery and into the graft. There was minimal bloody ooze. We put Surgifoam around it to control the suture hole bleeding. There was good flow through the graft. The graft was then clamped with a vascular clamp, I cut it to size to fit to the vein. I obtained distal control with the vessel loop and proximal control with a DeBakey clamp and a venotomy was made in the same fashion as described on the artery and then an anastomosis was created in the same fashion but this time using 6-0 Creola-Amandeep. Right before the anastomosis was complete, I restored flow through the graft and flushed it out and then completed the anastomosis. The proximal distal control on the axillary vein was removed. The clamp on the graft was removed. There was good flow through the graft. There was no signs of bleeding from either anastomosis. I then checked the graft. There was flow through it. I closed the incisions with interrupted subcutaneous 3-0 Polysorb and a running 4-0 subcuticular Biosyn, Steri-Strips. We then re-prepped and draped the patient for the dialysis catheter placement. The right internal jugular vein was found with ultrasound. It was accessed with a needle under ultrasound guidance. The wire passed through the needle easily and was confirmed to be in the right atrium with fluoroscopy. I then made a counter incision below the right clavicle and tunneled the catheter subcutaneously from this incision out through the neck incision. The tract over the wire was dilated, a sheath was passed over the wire. The wire was removed. The catheter was passed into the sheath. The sheath was removed. The tip was positioned correctly with fluoroscopy. I flushed each port with saline. Sterile caps were applied. I anchored it to the skin with nylon suture and closed the neck incision with subcuticular 4-0 Biosyn. He tolerated the procedure well, was awakened stable condition and transferred to the recovery room. cc: Pancho Reece MD
[2019-08-06] MEDS: ZOFRAN IV PRN ×2 (00:14→09:59)
[2019-08-06] MEDS: DILAUDID IV PRN ×2 (00:14→17:13)
--- NOTE | 2019-08-06 03:15 | PROGRESS NOTE ---
DATE: 08/05/2019 SUBJECTIVE: The patient was seen postop, so he was kind of confused, recovering from anesthesia. OBJECTIVE: Vital signs: Blood pressure 110/50, heart rate 75, respiratory rate 17, temperature 97.9 degrees. Cardiovascular: Regular rate and rhythm. Pulmonary: Bilateral breath sounds clear to auscultation. Gastrointestinal: Soft, nontender. Bowel sounds positive. Vascular: His subclavian site looked good. AV graft was covered. LABS: White count 23,000, hemoglobin and hematocrit 11 and 35, platelets of 371,000. Sodium 140, BUN and creatinine are 162 and 4.2, with a sugar of 144, and a phosphorus 6.3. PROBLEM LIST: 1. Chronic renal failure stage 5, essentially end-stage renal. He is at the point requiring dialysis. He is getting a tunneled catheter, which was accomplished, and an AV graft, which has been completed. Dialysis will progress per Dr. Alcaraz. 2. Diastolic heart failure. We will continue his current medications, although I do not think the Lasix is improving too much, at this point. We should probably stop that. 3. Gout. Polyarticular gout. He had been on Solu-Medrol. Continue colchicine. 4. Hypertension. We will continue to monitor closely. DISPOSITION: Pending new cycle on dialysis then we will decide about being able to go home. cc: Magdy Long MD
[2019-08-06 05:50] LABS: HEMATOCRIT 32.5 % (42.0-52.0); MCH 28.7 PG (27-31); MCHC 30.8 g/dL (33-37); MCV 93.4 FL (81-99); MPV 11.1 FL (7.4-10.4); RBC 3.48 XMIL (4.7-6.1); WBC 20.13 X1000 (4.8-10.8)
[2019-08-06 06:19] LABS: ALBUMIN 2.6 g/dL (3.5-5.0); CALCIUM 8.3 mg/dL (8.8-10.2); CREATININE 4.4 mg/dL (0.7-1.2); PHOSPHORUS 7.7 mg/dL (2.7-4.5); POTASSIUM 4.7 mmol/L (3.5-5.1)
[2019-08-06] MEDS: PRILOSEC PO SCH ×2 (06:30→20:44)
[2019-08-06] MEDS ORDERED: NS 2,000 ML MISC PRN (08:21)
[2019-08-06] MEDS ORDERED: HEPARIN IV PRN (08:21)
[2019-08-06] MEDS ORDERED: TIGHT: 0.2 ML/HR FOR DIALYSIS MISC PRN (08:21)
[2019-08-06] MEDS: ASPIRIN EC PO SCH (09:49)
[2019-08-06] MEDS: VELTASSA PO SCH (09:50)
[2019-08-06] MEDS: HYDROCHLOROTHIAZIDE PO SCH (09:50)
[2019-08-06] MEDS: APRESOLINE PO SCH ×3 (09:50→17:13)
[2019-08-06] MEDS: COREG PO SCH ×2 (09:50→20:44)
[2019-08-06] MEDS: SODIUM BICARBONATE PO SCH ×2 (09:50→20:44)
[2019-08-06] MEDS: TYLENOL PO PRN (12:26)
--- NOTE | 2019-08-06 13:04 | PROGRESS NOTE ---
DATE: 08/06/2019 SUBJECTIVE: Patient reports feeling fine. Denies any complaint at this time. OBJECTIVE: Vital Signs: Temperature 98.0 degrees, heart rate 69, respiratory rate 16, blood pressure 135/60, O2 saturation 100% on room air. General examination: This is an 83-year-old, male, lying in bed in no acute distress. Cardiovascular exam: S1, S2 heard. No murmurs, gallops, or rubs. Regular rate and rhythm. Respiratory exam: Clear bilaterally to auscultation. No work of breathing or using accessory muscles. Abdomen: Soft, nontender to palpation. Bowel sounds present. No organomegaly. AV graft in place. Neurological exam: Patient is alert and oriented x3. LABORATORY DATA: Reviewed. ASSESSMENT AND PLAN: 1. End-stage renal disease. The patient started dialysis yesterday. He had a jejunal catheter yesterday, so at this point
--- NOTE | 2019-08-06 14:09 | GENERAL SURGERY PROGRESS NOTE ---
DATE: 08/06/2019 SUBJECTIVE: The patient seems to be doing okay. OBJECTIVE: He had a little bit of decrease in his blood pressure during dialysis but seemed to tolerate it well. His graft seems to have flow in it at the moment. PLAN: We will continue to monitor while he is in the hospital. cc: Bright Moore MD
[2019-08-06 14:32] LABS: HEPATITIS PROFILE ACUTE SEE COMMENTS
--- NOTE | 2019-08-06 21:32 | NEPHROLOGY PROGRESS NOTE ---
DATE: 08/06/2019 SUBJECTIVE: He states he is little better today. His knee is about the same. He had problems with hypotension during his first dialysis treatment yesterday. OBJECTIVE: Vital Signs: Blood pressure 135/60, heart rate 69, respirations 16, afebrile. General: No acute distress. Skin: Warm and dry. Neck: Neck veins are not distended. Heart: Regular. No rubs. Lungs: Equal. No crackles. Abdomen: Soft, nontender. Bowel sounds present. Extremities: With minimal edema. No clubbing or cyanosis. IMPRESSION/PLAN: 1. Chronic kidney disease stage 5D. He will have dialysis again today. Minimal ultrafiltration, 3.5 hours using a 2 potassium bath. 2. Left knee pain. He underwent aspiration yesterday. Cultures are pending[place] [id number] with 88% polys. cc: Lopez Alcaraz MD
[2019-08-07 05:45] LABS: HEMATOCRIT 30.6 % (42.0-52.0); HEMOGLOBIN 9.4 g/dL (14.0-18.0); MCH 28.3 PG (27-31); MCHC 30.7 g/dL (33-37); MCV 92.2 FL (81-99); MPV 11.3 FL (7.4-10.4); RBC 3.32 XMIL (4.7-6.1); RDW 12.9 % (11.5-14.5); WBC 19.2 X1000 (4.8-10.8)
[2019-08-07] MEDS: PRILOSEC PO SCH ×2 (06:04→20:38)
[2019-08-07 06:15] LABS: ALBUMIN 2.4 g/dL (3.5-5.0); CALCIUM 8.1 mg/dL (8.8-10.2); PHOSPHORUS 5.3 mg/dL (2.7-4.5); POTASSIUM 4.5 mmol/L (3.5-5.1)
[2019-08-07] MEDS: ASPIRIN EC PO SCH (09:07)
[2019-08-07] MEDS: HYDROCHLOROTHIAZIDE PO SCH (09:07)
[2019-08-07] MEDS: SODIUM BICARBONATE PO SCH ×2 (09:07→20:38)
[2019-08-07] MEDS: VELTASSA PO SCH (09:07)
[2019-08-07] MEDS: COREG PO SCH ×2 (09:07→20:38)
[2019-08-07] MEDS: APRESOLINE PO SCH (09:08)
[2019-08-07] MEDS: DILAUDID IV PRN (09:08)
[2019-08-07] MEDS ORDERED: APRESOLINE PO SCH (15:00)
--- NOTE | 2019-08-07 16:26 | PROGRESS NOTE ---
DATE: 08/07/2019 SUBJECTIVE: The patient seems to be feeling better today compared with yesterday. He is an end- stage renal disease patient. We did an arthrocentesis that showed a white blood cell count of 18,436 with 88% polynuclear white blood cells. But even though we have this amount of polymorphonuclears and leukocyte count, his culture has been negative, as well as the Gram stain. He does have positive polarizable crystals with negative birefringent properties characteristic of monosodium urate/gout. OBJECTIVE: Vital Signs: Temperature 98 degrees, pulse 85, respiratory rate 16, blood pressure 109/46, oxygen saturation 99 on 2 L of nasal cannula. HEENT: Head normocephalic. No trauma. PERRLA. Neck: Supple. No JVD. No masses. Central trachea. Chest: Clear to auscultation. Abdomen: Soft. Extremities: He does have some edema, 1 to 2+. Left knee is painful to palpation and mobilization. Neurological: He is awake, alert. He is oriented. Generalized weakness. LABORATORY: WBC 19.2, hemoglobin 9.4, hematocrit 30.6, platelets 264,000. Sodium 136, potassium 4.5, chloride 97, bicarbonate 24, BUN 83, creatinine 4, glucose 136, calcium 8.1, phosphorus 5.3, albumin 2.4. ASSESSMENT AND PLAN: 1. End-stage renal disease. Continue with dialysis. 2. Diastolic heart failure. Continue removing fluid with dialysis. Medication has been stopped, which is his Lasix. 3. Left gout, much better. We do have a white blood cell count greater than 18,000 and the polymorphonuclear is elevated at 88%, but he is not on antibiotics and the pain is getting much better. He does have an elevated white blood cell count. I do not think he received any kind of steroid shot through the arthrocentesis. 4. Hypertension, controlled. cc: Tim Ernst MD
[2019-08-08 05:26] LABS: HEMATOCRIT 30.2 % (42.0-52.0); HEMOGLOBIN 9.1 g/dL (14.0-18.0); MCH 27.7 PG (27-31); MCHC 30.1 g/dL (33-37); MCV 92.1 FL (81-99); MPV 11.3 FL (7.4-10.4); RBC 3.28 XMIL (4.7-6.1); RDW 12.8 % (11.5-14.5); WBC 20.46 X1000 (4.8-10.8)
[2019-08-08 05:50] LABS: ALBUMIN 2.5 g/dL (3.5-5.0); CALCIUM 8.2 mg/dL (8.8-10.2); CREATININE 5.1 mg/dL (0.7-1.2); PHOSPHORUS 7.4 mg/dL (2.7-4.5); POTASSIUM 4.3 mmol/L (3.5-5.1)
[2019-08-08] MEDS: PRILOSEC PO SCH ×2 (06:26→20:48)
[2019-08-08] MEDS: HYDROCHLOROTHIAZIDE PO SCH (09:06)
[2019-08-08] MEDS: COREG PO SCH ×2 (09:06→20:48)
[2019-08-08] MEDS: ASPIRIN EC PO SCH (09:06)
[2019-08-08] MEDS: SODIUM BICARBONATE PO SCH ×2 (09:06→20:48)
--- NOTE | 2019-08-08 12:38 | GENERAL SURGERY PROGRESS NOTE ---
DATE: 08/08/2019 SUBJECTIVE: The patient is doing okay. He has had no acute events over the weekend I am aware of. He complains of some soreness in his left arm. OBJECTIVE: He is afebrile. Vital signs are stable.General: He is awake, alert, oriented x3. No acute distress. Chest: The right tunneled dialysis catheter is intact without hematoma or bleeding. Extremities: The left arm was examined. There is some expected edema around the surgical site in the upper arm. No active bleeding. He does have flow in the graft. There is no erythema or drainage. ASSESSMENT/PLAN: An 83-year-old male status post left upper arm AV graft placement and tunneled dialysis catheter placement. We will be available as needed. He can see me back in my office as an outpatient in the next couple weeks. cc: Pancho Reece MD
--- NOTE | 2019-08-08 14:23 | PROGRESS NOTE ---
DATE: 08/08/2019 SUBJECTIVE: Mr. Torres looks comfortable. He is he is not able to communicate, but he looks comfortable, breathing comfortably. OBJECTIVE: Vital Signs: Temperature 98 degrees, remains afebrile, pulse 80, respirations 20, blood pressure 125/93. HEENT: Pupils are equal and round. Lungs: Clear in all lung lugo. Cardiovascular: Regular Rhythm and rate without murmur or S3. Input and Output: Urine output is 2700 mL. ASSESSMENT AND PLAN: 1. End-stage renal disease. Continue hemodialysis. Volume status, electrolytes, acid-base look good. 2. Diastolic heart failure. Continue to remove fluid with dialysis. 3. Left gout much better. White count was greater than 18,000. Polymorphonuclear count was 88%. His pain is getting better. 4. Hypertension. PLAN: His left knee is much better. They are going to do some carotid studies on his neck. He is on aspirin 81 mg a day, Coreg 12.5 mg q.12, hydrochlorothiazide 25 mg a day, omeprazole 40 mg a day, Veltassa 8.4 mg daily and sodium bicarbonate 650 mg b.i.d. REVIEW OF LABS: Lab from this morning still leukocytosis white count 20,460, hematocrit is 30, platelet count is 254,000. Sodium 135, potassium 4.3, chloride 96, BUN is 108, creatinine 5.1. cc: Stephen Shaw MD
--- NOTE | 2019-08-08 15:03 | PROVIDER PROGRESS NOTE ---
Progress Note Subjective: patient reports fatigue, left knee pain, and decreased appetite. He denies all other complaints. Objective: temperature 97.9, pulse 66, respirations 17, blood pressure 118/57, O2 sat 100% on 2L cannula. General elderly -[place] man lying in bed in some GI distress. HEENT: normocephalic, atraumatic. Pupils equal and reactive, lipoma noted to right eye. Mucous membranes dry. Skin: warm and dry Neck: Supple, 6 cm JVD Cardiovascular: S1S2, regular rate and rhythm. No murmur gallop noted. Respiratory: diminished bases anteriorly. Abdomen: soft, obese, nontender. Protrusion to the mid upper to right abdominal region. : Suprapubic catheter in place with clear yellow urine. Extremities: 1+ pitting to bilateral ankles and feet. Neurological: alert and oriented to person, place, and time. Labs: WBC 20.46, hemoglobin 9.1, hematocrit 30.2, platelet count to 54, sodium 135, potassium 4.3, chloride 96, carbon dioxide 24, BUN 108, creatinine 5.1, albumin 2.5. Intake 802, output 1900. Impression: Chronic kidney disease stage 5 with recent progression to need Renal replacement therapy. He is stable today with the same complaints he has had for the last few days. We will hold off on hemodialysis today with plans to treat him tomorrow. Blood pressure. In target. Fluid volume. Slightly expanded. No acute distress noted. Anemia. Stable. Electrolytes. Stable. Acid base balance. Stable. Knee pain. Cultures show no growth. Nutrition. Encouraged to eat. Add supplement. Medication review. Veltassa started today. Should not need to continue this. rg
[2019-08-08] MEDS: VELTASSA PO SCH (16:36)
[2019-08-09 05:33] LABS: HEMATOCRIT 29.3 % (42.0-52.0); HEMOGLOBIN 9.1 g/dL (14.0-18.0); MCH 28.9 PG (27-31); MCHC 31.1 g/dL (33-37); MPV 11.6 FL (7.4-10.4); RBC 3.15 XMIL (4.7-6.1); WBC 19.11 X1000 (4.8-10.8)
[2019-08-09] MEDS: PRILOSEC PO SCH ×2 (06:00→21:56)
[2019-08-09 06:26] LABS: ALBUMIN 2.5 g/dL (3.5-5.0); CALCIUM 8.2 mg/dL (8.8-10.2); CREATININE 5.1 mg/dL (0.7-1.2); PHOSPHORUS 6.6 mg/dL (2.7-4.5); POTASSIUM 4.1 mmol/L (3.5-5.1)
[2019-08-09] MEDS ORDERED: VANCOMYCIN 1 GM/NS 1 GM/250 ML IVPB IV ONE (08:00)
[2019-08-09] MEDS ORDERED: TAZIDIME 1 GM in NS 50 ML IV ONE (08:01)
[2019-08-09] MEDS ORDERED: HEPARIN IV PRN (08:02)
[2019-08-09] MEDS ORDERED: TIGHT: 0.2 ML/HR FOR DIALYSIS MISC PRN (08:02)
[2019-08-09] MEDS ORDERED: NS 2,000 ML MISC PRN (08:02)
[2019-08-09] MEDS: SODIUM BICARBONATE PO SCH ×2 (13:34→21:56)
[2019-08-09] MEDS: HYDROCHLOROTHIAZIDE PO SCH (13:34)
[2019-08-09] MEDS: COREG PO SCH ×2 (13:34→21:56)
[2019-08-09] MEDS: ASPIRIN EC PO SCH (13:34)
--- NOTE | 2019-08-09 13:53 | PROGRESS NOTE ---
DATE: 08/09/2019 Mr. Torres is alert and oriented x3. He is on 2 L per nasal cannula. Poe present, approximately 200 mL in the bag. Complains of pain to left knee. Appetite is good. Ate a couple bites after dialysis. His left arm fistula is hard and red, and a little tender to touch. PHYSICAL EXAMINATION: Vital Signs: Temperature 98.6 degrees, pulse 80, respirations 17, blood pressure 131/57. Pupils are equal and round. Lungs are clear in all lung lugo. Cardiovascular Examination: Regular rhythm and rate without murmur or S3. Urine output was 1900 mL. ASSESSMENT AND PLAN: 1. Chronic kidney disease stage 5D, recent progression to need renal replacement therapy. Dr. Alcaraz is following. His volume status and electrolytes are acceptable. 2. Anemia, stable. Acid-base balance stable. 3. Knee pain. Cultures show no growth. 4. Encourage oral intake. 5. Suspect gout in the knee. The knee was tapped. He reports it may be a little better today. 6. Hypertension. Continue current orders. Aspirin 81 mg a day, Coreg 12.5 mg q.12, hydrochlorothiazide 25 mg a day, omeprazole 40 mg p.o. b.i.d., Veltassa 8.4 mg p.o. daily, sodium bicarbonate 650 mg p.o. b.i.d., ceftazidime was given 1 time dose when he came in, and vancomycin was given 1 time dose. Cultures from the left knee, no growth. Gram stain, 4+ white blood cells. Blood cultures, no growth as of yet, but they were just drawn this morning. cc: Stephen Shaw MD
[2019-08-09] MEDS: VELTASSA PO SCH (16:45)
--- NOTE | 2019-08-09 19:03 | PROVIDER PROGRESS NOTE ---
Progress Note Subjective: patient continues to voice left knee pain and decreased appetite. denies all other complaints. Objective: temperature 98.7, pulse 66, blood pressure 124/53, O2 sat 100% on 1.5 nasal cannula General elderly -[place] man lying in bed in some GI distress. HEENT: normocephalic, atraumatic. Pupils equal and reactive, lipoma noted to right eye. Mucous membranes moist. Skin: warm and dry Neck: Supple, JVD with hepatojugular reflux. Cardiovascular: S1S2, regular rate and rhythm. Heave present. No murmur or gallop noted. Respiratory: diminished bases anteriorly. Abdomen: soft, obese, nontender. Protrusion to the mid upper to right abdominal region. Hypoactive bowel sounds. : Suprapubic catheter in place with clear yellow urine. Extremities: 1+ pitting to bilateral ankles and feet. Left upper arm over fistula sight is hard, tender, and has areas of warmth. Foul odor noted. Neurological: alert and oriented to person, place, and time. Labs: WBC 19.11, hemoglobin 9.1, hematocrit 29.3, platelet count 263, sodium 136, potassium 4.1, chloride 97, carbon dioxide 22, BUN 119, creatinine 5.1. Impression: Chronic kidney disease stage 5 with recent progression to need Renal replacement therapy. He is stable today with the same complaints he has had for the last few days. He will have hemodialysis today. Blood pressure. In target. Fluid volume. Slightly expanded. No acute distress noted. Anemia. Stable. Electrolytes. Stable. Acid base balance. Stable. Knee pain. Cultures show no growth. Nutrition. Encouraged to eat. Constipation. Medication review.
[2019-08-10 05:43] LABS: C REACTIVE PROT QUANT 188.02 mg/L (0.00-5.00); CALCIUM 7.9 mg/dL (8.8-10.2); CREATININE 4.3 mg/dL (0.7-1.2); POTASSIUM 3.9 mmol/L (3.5-5.1); URIC ACID 5.6 mg/dL (3.4-7.0)
[2019-08-10] MEDS: PRILOSEC PO SCH ×2 (06:45→20:36)
[2019-08-10] MEDS: HYDROCHLOROTHIAZIDE PO SCH (09:02)
[2019-08-10] MEDS: COREG PO SCH ×2 (09:02→20:50)
[2019-08-10] MEDS: ASPIRIN EC PO SCH (09:02)
[2019-08-10] MEDS: SODIUM BICARBONATE PO SCH ×2 (09:02→20:37)
[2019-08-10] MEDS ORDERED: DULCOLAX PR PRN (12:42)
[2019-08-10] MEDS: MIRALAX PO SCH (13:05)
[2019-08-10] MEDS: MILK OF MAGNESIA PO PRN (13:05)
[2019-08-10] MEDS: VELTASSA PO SCH (14:25)
--- NOTE | 2019-08-10 14:27 | GENERAL SURGERY PROGRESS NOTE ---
DATE: 08/10/2019 SUBJECTIVE: Patient says he feels pretty good. His left arm is sore, but he denies severe pain. OBJECTIVE: Vital Signs: He is afebrile. Vital signs are stable. Extremities: The left upper arm was examined. There is mild to moderate induration and swelling without foul drainage or odor. Incisions are intact and appear clean. There was flow in the graft that is palpable. ASSESSMENT/PLAN: An 83-year-old male status post left upper arm arteriovenous graft. Healing appears to be within the usual limits of postop swelling. We will keep an eye on it while he is here in the hospital. cc: Pancho Reece MD
--- NOTE | 2019-08-10 16:04 | PROVIDER PROGRESS NOTE ---
Progress Note Subjective: Mr. Torres voices feelings of malaise and continued low appetite. Objective: temperature 98.6, pulse 68, respirations 17, blood pressure 120/58, O2 sat 100% on nasal cannula 1.5 L General elderly -Thai man lying in bed in no distress.. HEENT: normocephalic, atraumatic. Pupils equal and reactive, lipoma noted to right eye. Mucous membranes moist. Skin: warm and dry Neck: Supple, JVD with hepatojugular reflux. Cardiovascular: S1S2, regular rate and rhythm. Heave present. No murmur or gallop noted. Respiratory: diminished bases anteriorly. Abdomen: soft, obese, nontender. Protrusion to the mid upper to right abdominal region. Hypoactive bowel sounds. : Suprapubic catheter in place with Rachel urine. Extremities: 1+ pitting to bilateral ankles and feet. Left upper arm over fistula sight is firm, tender, and has areas of warmth. Neurological: alert and oriented to person, place, and time. Labs: sodium 137, potassium 3.9, chloride 97, carbon dioxide 26, BUN 67, creatinine 4.3. Intake 222, output 1750. Impression: Chronic kidney disease stage 5 with recent progression to need Renal replacement therapy. He had his hemodialysis yesterday with a 1.5 L ultrafiltration. Blood pressure. In target. Fluid volume. Slightly expanded. No acute distress noted. Anemia. Stable on last labs. Electrolytes. Stable. Acid base balance. Stable. Nutrition. Encouraged to eat. Constipation. Medication review. Veltassa daily. Will discontinue this.
--- NOTE | 2019-08-10 17:43 | PROGRESS NOTE ---
DATE: 08/10/2019 SUBJECTIVE: Mr. Torres states he is feeling a little bit better, less discomfort. He is breathing comfortably. He is awake and alert, and oriented x3. Denies any shortness of breath. He is still on 2 L per nasal cannula O2. His pain in his left knee he says is less. Appetite is pretty good, ate especially his fruit. He denies any cough. Blood pressure within normal limits. Left upper arm fistula, palpable bruit, hard and red. Edema noted to bilateral extremities from the ankle to mid mccullough. OBJECTIVE: Remains afebrile. Temperature 98.3 degrees, pulse 80, respirations 16, and blood pressure 114/83. Pupils are equal and round. Lungs are clear in all lung lugo. Cardiovascular: Regular rhythm and rate without murmur or S3. Urine output is 1800 mL. ASSESSMENT AND PLAN: 1. Chronic kidney disease stage 5D, recent progression to need for renal replacement therapy. He had hemodialysis yesterday, and he took off about 1.5 L of ultrafiltration. Blood pressure appears on target with volume status slightly expanded, but improved. Anemia is stable. Electrolytes and acid-base status are stable. 2. We suspect he has some gout in the knee, and continue present anti-inflammatory. 3. Hypertension. Blood pressure well controlled. His blood cultures from the 14th no growth thus far, and no growth from tapping his left knee. REVIEW OF PRESENT ORDERS: I do not see any change. cc: Stephen Shaw MD
[2019-08-10] MEDS: SORBITOL PO PRN (20:36)
[2019-08-11] MEDS: PRILOSEC PO SCH ×2 (06:28→21:03)
[2019-08-11] MEDS: SODIUM BICARBONATE PO SCH ×2 (08:56→21:03)
[2019-08-11] MEDS: COREG PO SCH ×2 (08:56→21:03)
[2019-08-11] MEDS: ASPIRIN EC PO SCH (08:56)
[2019-08-11] MEDS: MILK OF MAGNESIA PO PRN (08:56)
[2019-08-11] MEDS: HYDROCHLOROTHIAZIDE PO SCH (08:56)
[2019-08-11] MEDS: MIRALAX PO SCH (08:56)
[2019-08-11] MEDS ORDERED: NS 2,000 ML MISC PRN (11:18)
[2019-08-11] MEDS ORDERED: HEPARIN IV PRN (11:18)
--- NOTE | 2019-08-11 15:59 | PROGRESS NOTE ---
DATE: 08/11/2019 SUBJECTIVE: Mr. Torres is feeling a little better. I saw him while he was getting dialysis. No complaints. No complaints of pain. Leg pain is better. Knee pain is better. OBJECTIVE: Vital Signs: Temperature 98.3 degrees, pulse 68, respirations 14, blood pressure 119/48. Eyes: Pupils are equal and round. Lungs: Lungs are clear in all lung lugo. Cardiovascular exam: Regular rhythm and rate without murmur or S3. Abdomen: Soft. Skin: Skin is warm and dry. : Urine output is 1400 mL. ASSESSMENT AND PLAN: 1. Chronic kidney disease stage 5 D, recent progression and need for renal replacement. So, got hemodialysis again today. 2. Gout in his knee and seems to be doing better from that standpoint. 3. Hypertension. Blood pressure appears to be well controlled. Looking at his orders, I do not see any change at this point, and we again did discuss discharge plans. White count still elevated when checked on the 14; I will recheck it again in the morning and we will check his electrolytes as well. cc: Stephen Shaw MD
[2019-08-11] MEDS: NS 1,000 ML IV SCH (18:24)
--- NOTE | 2019-08-11 18:30 | PROVIDER PROGRESS NOTE ---
Progress Note Subjective: Mr. Torres voices feelings of general malaise. Objective: temperature 98.3, pulse 68, respirations 14, blood pressure 118/48, O2 sat 100% on 2 L nasal cannula. General elderly -[place]ian man lying in bed in no distress.. HEENT: normocephalic, atraumatic. Pupils equal and reactive, lipoma noted to right eye. Mucous membranes moist. Skin: warm and dry Neck: Supple, JVD with hepatojugular reflux. Cardiovascular: S1S2, regular rate and rhythm. Heave present. No murmur or gallop noted. Respiratory: diminished bases anteriorly. Abdomen: soft, obese, nontender. Protrusion to the mid upper to right abdominal region. Active bowel sounds. : Suprapubic catheter in place with Rachel urine. Extremities: 1+ pitting to bilateral ankles and feet. Left upper arm over fistula sight is firm, tender, and has areas of warmth. Neurological: alert and oriented to person, place, and time. Labs: intake 960, output 1000 Impression: Chronic kidney disease stage 5 with recent progression to need Renal replacement therapy. He will have his routine hemodialysis treatment. No changes. Blood pressure. In target. Fluid volume. Slightly expanded. He will have hemodialysis today. Anemia. Stable on last labs. Electrolytes. Stable. Acid base balance. Stable. Nutrition. Encouraged to eat. Medication review. No changes. He has been up very little. We discussed this. His knee is improving. He will get up more. ale
--- NOTE | 2019-08-11 20:24 | GENERAL SURGERY PROGRESS NOTE ---
DATE: 08/11/2019 SUBJECTIVE: The patient is doing well. No new complaints. OBJECTIVE: Vital signs: He is afebrile. Vital signs are stable. General: He is awake, alert, and oriented x3. No acute distress. Extremities: The left arm is examined. There is flow in the graft. The incisions are clean, dry, and intact. The swelling is mild and improving. No drainage. ASSESSMENT AND PLAN: An 83-year-old male status post left arm arteriovenous graft. It appears to be healing appropriately. We will see him on an as-needed basis. cc: Pancho Reece MD
[2019-08-11] MEDS: SORBITOL PO PRN (21:03)
[2019-08-12] MEDS: DILAUDID IV PRN ×2 (00:33→06:31)
[2019-08-12] MEDS: NS 1,000 ML IV SCH (00:33)
[2019-08-12 06:01] LABS: MCH 28.6 PG (27-31); MCHC 29.6 g/dL (33-37); MCV 96.4 FL (81-99); MPV 10.5 FL (7.4-10.4); RBC 2.8 XMIL (4.7-6.1); RDW 12.8 % (11.5-14.5); WBC 21.47 X1000 (4.8-10.8)
[2019-08-12 06:30] LABS: ALBUMIN 2.3 g/dL (3.5-5.0); CALCIUM 7.8 mg/dL (8.8-10.2); MAGNESIUM 2.1 mg/dL (1.5-2.7); PHOSPHORUS 4.5 mg/dL (2.7-4.5); POTASSIUM 4.2 mmol/L (3.5-5.1)
[2019-08-12] MEDS: PRILOSEC PO SCH ×2 (06:32→21:32)
[2019-08-12] MEDS: HYDROCHLOROTHIAZIDE PO SCH (08:37)
[2019-08-12] MEDS: MIRALAX PO SCH (08:37)
[2019-08-12] MEDS: SODIUM BICARBONATE PO SCH ×2 (08:37→21:32)
[2019-08-12] MEDS: COREG PO SCH ×2 (08:37→21:32)
[2019-08-12] MEDS: ASPIRIN EC PO SCH (08:37)
[2019-08-12] MEDS: FOLIC ACID PO SCH (12:13)
[2019-08-12] MEDS: VITAMIN B-12 PO SCH (12:14)
[2019-08-12] MEDS ORDERED: NS 2,000 ML MISC PRN (13:34)
--- NOTE | 2019-08-12 14:28 | PROGRESS NOTE ---
DATE: 08/12/2019 SUBJECTIVE: Mr. Torres was resting comfortably, easy to arouse. Says his knee pain is better, but he is not able to walk and get around. He is not going to be able to go home. He requires dialysis and we did have palliative care come, states he saw them. No change in his code status, but he is getting weaker and weaker. He expressed desire for no resuscitation measures. He got detailed instruction on do not resuscitate level 1 and 2 in full code. The patient and daughter voiced understanding, expressed that he is in agreement to continue dialysis. He will not be able to go home without a lot more help. His plan is to go home with family helping him with his care. OBJECTIVE: Vital Signs: Temperature 98.0 degrees, pulse 65, respirations 16, blood pressure 117/54. Eyes: Pupils are equal and round. Lungs: Clear in all lung lugo. Cardiovascular exam: Regular rhythm and rate without murmur or S3. : Urine output is 3000 mL. ASSESSMENT AND PLAN: 1. Chronic kidney disease stage 5 D. Recent progression to need renal replacement. We will have his routine hemodialysis treatment. His volume, electrolytes, acid base and anemia are all stable. 2. Arthritis in his knee. 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 3. General weakness and deconditioning. He is not able to get around and walk very much at all. 4. History of hypertension. REVIEW OF HIS ORDERS: He is getting acetaminophen 650 mg p.o. q. 6 hours, aspirin 81 mg a day, Coreg 12.5 mg q. 12 hours, cyanocobalamin 2000 mcg p.o. daily, folic acid 1 mg daily, hydrochlorothiazide 25 mg a day, Prilosec 40 mg p.o. b.i.d., polyethylene glycol 17 g daily, sodium bicarbonate 650 mg p.o. b.i.d., sorbitol 30 mL p.o. q. 8 hours p.r.n. REVIEW OF LABS: White count still elevated at 21,470, hematocrit is 27, hemoglobin is 8, platelet count is 260,000. Note he has had persistent elevation of white count and it is predominantly neutrophils. We will ask Hematology to explore whether there could be underlying bone marrow dysfunction, including myelocytic leukemia. Sodium 139, potassium 4.2, chloride 101. BUN 51, creatinine 4.0, albumin is 2.3. cc: Stephen Shaw MD
--- NOTE | 2019-08-12 15:02 | HEMO/ONC CONSULTATION ---
DATE: 08/12/2019 REASON FOR CONSULTATION: Leukocytosis. HISTORY OF PRESENT ILLNESS: Mr. Torres is an 83-year-old, -[place] male, with a history of hypertension, CKD stage 4, and congestive heart failure. He came to the ER with a complaint of swelling in his legs, increased weakness, and felt like he could not walk for the last 2 weeks. Deep vein thrombosis was ruled out in the emergency department and it was noted his potassium was above 6, and he was not able to get up and move around because of the swelling. The patient was admitted for further evaluation at that time. The patient has been complaining of chronic knee pain which restricts his movement and is associated with significant weakness, which has been increasing in severity. According to Dr. Alcaraz, he does have chronic lower extremity swelling and has recently increased his Lasix, and was ultimately determined that the patient has severe gout of his left knee. PAST MEDICAL HISTORY: Chronic kidney disease stage 4, hypertension, congestive heart failure, chronic venous insufficiency, MGUS. PAST SURGICAL HISTORY: He has a suprapubic catheter placement. Denies alcohol or tobacco. 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 ALLERGIES: No known drug allergies. HOME MEDICATIONS: Aspirin, carvedilol, Lasix, hydralazine, hydrochlorothiazide, omeprazole. REVIEW OF SYSTEMS: Increase of extremity swelling, chronic constipation, suprapubic catheter. All other review of systems is negative. PHYSICAL EXAMINATION: Vital Signs: Temperature 98.0 degrees, pulse rate 65, respiratory rate 16, blood pressure 117/54, O2 saturation 100% on nasal cannula at 3 L. He is in 0/10 pain. General: Chronically ill-appearing gentleman in no acute distress. HEENT: Sclerae anicteric. PERRLA. Oral mucosa normal. Cardiovascular: Normal S1, S2. Regular rate and rhythm. No murmur noted. Respiratory: Diminished breath sounds at the bases, otherwise clear to auscultation. Normal respiratory effort. Abdomen: Protuberant, soft, nontender. Bowel sounds present. Genitourinary: Suprapubic catheter in place, not assessed. Extremities: Pitting edema +1 to bilateral ankles and feet. Fistula noted to left upper arm. Neurological: Alert and oriented x3. No focal motor deficits noted. LABORATORY: WBCs 21.47, hemoglobin 8.0, hematocrit 27.0, platelet count 260,000. ESR 105. Creatinine 4.0, glucose 126, calcium 7.8. ASSESSMENT AND PLAN: 1. Chronic kidney disease stage 5. Recent progression and need for renal replacement. Dr. Alcaraz is closely following. Continue management per his guidelines. 2. Gout to the left knee. Seems to be quite significant. 3. Hypertension. Blood pressure is in the target range. Continue to monitor per medical management. 4. Deep venous thrombosis prophylaxis. Use SCDs or pneumatic stockings. 5. Disposition. Please call us if needed over the weekend. Dictated by GWENDOLYN Moreno for Anuj Woods MD Patient seen and examined. As above. He complains of severe pain in his left knee from gout. Leukocytosis is likely reactive. We will review blood smear. Check LDH. Will follow with you. Anuj Woods MD cc: Anuj Woods MD MTDD
--- NOTE | 2019-08-12 18:00 | NEPHROLOGY PROGRESS NOTE ---
DATE: 08/12/2019 SUBJECTIVE: He is still complaining of knee pain. He also complains of a sore on his backside. He has sit on the bed with therapy on a few occasions. He is very weak with trying to walk to the bathroom and required maximum assistance. OBJECTIVE: Vital Signs: Blood pressure 115/40, heart rate 67, respirations 15, afebrile. General: No acute distress. Skin: Warm and dry. Conjunctivae are pink. Neck: Veins are not appreciated. Heart: Regular. No gallops or rubs. Lungs: Equal. No crackles. Abdomen: Soft. Normal bowel sounds. Extremities: No edema. Left knee remains tender and swollen. IMPRESSION/PLAN: 1. Chronic kidney disease 5D. He will have dialysis today, but we will have minimum ultrafiltration as he is still making adequate urine. 2. Electrolytes/acid base/volume status. All intact. 3. Leukocytosis. We will ask Dr. Woods to assist. May be related to his steroids, but all white counts measured since November of last year, have been above normal. Neutrophil predominance. 4. Anemia. Hemoglobin 8.0 today. Observe, but he may require transfusion. Folate and B12 are low. I will treat these. Check iron stores. cc: Lopez Alcaraz MD
[2019-08-13] MEDS: PRILOSEC PO SCH ×2 (06:28→20:52)
[2019-08-13 07:41] LABS: IRON SATURATION 16 %; TIBC 120 ug/dL; TOTAL IRON 19 ug/dL (53-167); UNBOUND IRON 101 ug/dL (112-346)
[2019-08-13] MEDS: MIRALAX PO SCH ×2 (08:57→20:52)
[2019-08-13] MEDS: VITAMIN B-12 PO SCH (08:57)
[2019-08-13] MEDS: HYDROCHLOROTHIAZIDE PO SCH (08:58)
[2019-08-13] MEDS: ASPIRIN EC PO SCH (08:58)
[2019-08-13] MEDS: COREG PO SCH ×2 (08:58→20:52)
[2019-08-13] MEDS: FOLIC ACID PO SCH (08:58)
[2019-08-13] MEDS: NEPHRO-VITE PO SCH (08:58)
[2019-08-13] MEDS: SODIUM BICARBONATE PO SCH ×2 (08:58→20:52)
--- NOTE | 2019-08-13 11:12 | PROGRESS NOTE ---
DATE: 08/13/2019 SUBJECTIVE: Mr. Torres was in the bed. He states his bowels have been slow and would like a stool softener. His left knee is still sore and painful but seems to have improved a little. He is tolerating dialysis. His volume status, electrolytes, liver function looked good. OBJECTIVE: Vital signs: Temperature is 98.7 degrees, remains afebrile, pulse 60, respirations 16, blood pressure 111/44. HEENT: Pupils are equal and round. Lungs: Lungs are clear in all lung lugo. Cardiovascular: Regular rhythm and rate without murmur or S3. Abdomen: Abdomen is soft. Skin: Skin is warm. Extremities: Left knee with generalized swelling and effusion. It is not near as tender as it was a couple days ago. ASSESSMENT AND PLAN: 1. Chronic kidney disease stage 5D. Continue dialysis. Volume status, electrolytes and acid- base look good. 2. Gout of left knee with discomfort and swelling and having significant pain from that. 3. Hypertension. Blood pressure well controlled. 4. General weakness and deconditioning. Continue physical therapy and occupational therapy. 5. Constipation. I will put him on some MiraLAX, and he can have milk of magnesia as needed. He was already on some sorbitol, and he is getting MiraLAX 17 g once a day. We will go up to twice a day. cc: Stephen Shaw MD
[2019-08-13] MEDS: ZOLOFT PO SCH (14:52)
[2019-08-13] MEDS: DILAUDID IV PRN (22:17)
[2019-08-14] MEDS: PRILOSEC PO SCH ×2 (06:50→20:29)
[2019-08-14] MEDS: COREG PO SCH ×2 (08:16→20:29)
[2019-08-14] MEDS: ASPIRIN EC PO SCH (08:16)
[2019-08-14] MEDS: MIRALAX PO SCH ×3 (08:16→20:28)
[2019-08-14] MEDS: NEPHRO-VITE PO SCH (08:17)
[2019-08-14] MEDS: SODIUM BICARBONATE PO SCH ×2 (08:17→20:29)
[2019-08-14] MEDS: FOLIC ACID PO SCH (08:17)
[2019-08-14] MEDS: HYDROCHLOROTHIAZIDE PO SCH (08:17)
[2019-08-14] MEDS: ZOLOFT PO SCH (08:17)
[2019-08-14] MEDS: VITAMIN B-12 PO SCH (08:17)
--- NOTE | 2019-08-14 10:19 | PROGRESS NOTE ---
DATE: 08/14/2019 SUBJECTIVE: Mr. Torres is feeling better. His leg feels a little better. He feels a little stronger today, so he is encouraged. He had dialysis yesterday. PHYSICAL EXAMINATION: Vital Signs: He remains afebrile, temperature 98.4 degrees, pulse 62, respirations 20, blood pressure 132/41. HEENT: Pupils are equal and round. Lungs: Clear in all lung lugo. Cardiovascular: Regular rhythm and rate without murmur or S3. Abdomen: Soft. Skin: Warm and dry. ASSESSMENT AND PLAN: 1. Chronic kidney disease stage 5D. Continue his hemodialysis. Volume status, electrolytes, acid-base look good. 2. 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 3. General weakness and deconditioning. His legs are very weak. He is not able to ambulate or bear weight. Continue physical therapy. 4. Hypertension. Continue to follow blood pressure. 5. Constipation. I think that his bowel regimen is working. Reviewed all of his orders. He still has an elevated white count, which we think is reactive from inflammation. Hematology is following. cc: Stephen Shaw MD
[2019-08-14] MEDS: DILAUDID IV PRN (23:25)
[2019-08-15] MEDS: DILAUDID IV PRN (05:47)
[2019-08-15] MEDS: PRILOSEC PO SCH ×3 (05:47→20:36)
[2019-08-15] MEDS ORDERED: HEPARIN IV PRN (06:14)
[2019-08-15] MEDS ORDERED: NS 2,000 ML MISC PRN (06:14)
[2019-08-15] MEDS ORDERED: TIGHT: 0.2 ML/HR FOR DIALYSIS MISC PRN (06:14)
[2019-08-15 09:53] LABS: ALBUMIN 2.4 g/dL (3.5-5.0); CALCIUM 7.9 mg/dL (8.8-10.2); CREATININE 4.7 mg/dL (0.7-1.2); PHOSPHORUS 4.6 mg/dL (2.7-4.5); POTASSIUM 4.4 mmol/L (3.5-5.1)
[2019-08-15 10:06] LABS: HEMATOCRIT 25.8 % (42.0-52.0); HEMOGLOBIN 7.4 g/dL (14.0-18.0); MCH 28.6 PG (27-31); MCHC 28.7 g/dL (33-37); MCV 99.6 FL (81-99); MPV 10.3 FL (7.4-10.4); RBC 2.59 XMIL (4.7-6.1); RDW 12.4 % (11.5-14.5); WBC 16.61 X1000 (4.8-10.8)
--- NOTE | 2019-08-15 12:57 | PROGRESS NOTE ---
DATE: 08/15/2019 SUBJECTIVE: Mr. Torres was getting dialysis. He was sleeping, easy to arouse. No complaints. States his leg is doing better. OBJECTIVE: Vital Signs: Remains afebrile, temperature 98.4 degrees, pulse 60 respirations 19, blood pressure 120/49. Eyes: Pupils are equal and round. Lungs: Clear in all lung lugo. Cardiovascular exam: Regular rhythm and rate without murmur or S3. Abdomen: Soft. Skin: Warm and dry. : Urine output: He is on dialysis. He had 1300 output yesterday. ASSESSMENT AND PLAN: 1. Chronic kidney disease stage 5 D. He is getting hemodialysis. Volume status, electrolytes, acid-base look good. 2. Gout inflammation, left knee. This is better. He is very weak in his legs. Continue physical therapy. We are looking for possible rehabilitation options. He cannot go home at this point. 3. General weakness/deconditioning. Looking for rehabilitation. 4. Hypertension. Blood pressure is well controlled. 5. Constipation, which is resolved. 6. Had leukocytosis, which we think is probably reactive. Today the white count was down to 16,000, so continue present orders. Looking for rehabilitation position. cc: Stephen Shaw MD
[2019-08-15] MEDS: COREG PO SCH ×2 (13:31→20:36)
[2019-08-15] MEDS: ASPIRIN EC PO SCH (13:31)
[2019-08-15] MEDS: HYDROCHLOROTHIAZIDE PO SCH (13:31)
[2019-08-15] MEDS: SODIUM BICARBONATE PO SCH ×2 (13:31→20:36)
[2019-08-15] MEDS: ZOLOFT PO SCH (13:31)
[2019-08-15] MEDS: MIRALAX PO SCH ×2 (13:31→20:36)
[2019-08-15] MEDS: VITAMIN B-12 PO SCH (13:32)
[2019-08-15] MEDS: NEPHRO-VITE PO SCH (13:32)
[2019-08-15] MEDS: FOLIC ACID PO SCH (13:32)
--- NOTE | 2019-08-15 13:51 | HEMO/ONC PROGRESS NOTE ---
DATE: 08/15/2019 SUBJECTIVE: The patient is being cleaned up by the nurses this morning. The patient had a bowel movement in bed. He is due to go to dialysis here in a few minutes. He had a good night. No significant events. The patient's pain is improving. OBJECTIVE: Vital signs: Temperature is 98.1, pulse rate 66, respiratory rate 19, blood pressure 122/46, O2 saturation is 100% on nasal cannula at 2 L. He has 7/10 abdominal pain. General: The patient is in no acute distress. HEENT: Sclerae anicteric. PERRLA. Oral mucosa is normal. Cardiovascular: Normal S1 and S2. Heart rate and rhythm regular. Respiratory: Lung sounds are clear to auscultation. Normal respiratory effort. Abdomen is protuberant, soft. Skin: Warm, dry and intact. Neurologic: Awake, alert and oriented x3. DIAGNOSTIC DATA: WBC is 16.61, hemoglobin 7.4, hematocrit 25.8, platelet count 291. Creatinine 4.7, calcium 7.9. LDH is 222. ASSESSMENT: 1. Chronic kidney disease stage 5. The patient is being managed per Dr. Alcaraz. His kidney dysfunction is contributing to his anemia. 2. Gout to the left knee. The patient's white blood cell count is decreasing as the patient's gout is being treated. His white blood cell count is most likely reactive. 3. Hypertension. Continue to monitor for medical management. 4. DVT prophylaxis. The patient has on pneumatic stockings. PLAN: The patient's LDH was normal. Continue to treat the patient for gout. His leukocytosis will most likely continue to decrease. We will continue to follow peripherally as needed. Dictated by GWENDOLYN Moreno for Anuj Woods MD Patient's WBC trending down. LDH is not particularly elevated. Blood smear without immature white cell forms. This is likely from inflammation related to his left knee. No further evaluation needed from Hematology standpoint. Will follow peripherally. Thank you. Anuj Woods MD cc: Anuj Woods MD [facility]
--- NOTE | 2019-08-15 16:20 | PROVIDER PROGRESS NOTE ---
Progress Note Subjective: Mr. Torres voices feeling better today. He denies any uremic complaints. Objective: temperature 98.4, pulse 58, blood pressure 120/45, how do you set 100% on the 2 L nasal cannula. General elderly -Citizen Of [place] man lying in bed in no distress.. HEENT: normocephalic, atraumatic. Pupils equal and reactive, lipoma noted to right eye. Mucous membranes moist. Skin: warm and dry Neck: Supple, 6cm JVD Cardiovascular: S1S2, regular rate and rhythm. No murmur or gallop noted. Respiratory: diminished bases anteriorly. Abdomen: soft, obese, nontender. Protrusion to the mid upper to right abdominal region. Active bowel sounds. : Suprapubic catheter in place with Rachel urine. Extremities: 1+ pitting to bilateral ankles and feet. Left upper arm over fistula sight is less firm and less tender. Neurological: alert and oriented to person, place, and time. Labs: intake 360, output 650. Impression: Chronic kidney disease stage 5 with recent progression to need Renal replacement therapy. He will have his routine hemodialysis treatment with a 2K bath and attempt a 2 L ultrafiltration. Blood pressure. In target. Fluid volume. Slightly expanded. He will have hemodialysis today. Anemia. Stable on last labs. Electrolytes. Stable on last labs. Acid base balance. Stable on last labs. Nutrition. Encouraged to eat. Ambulation. Encouraged to participate with PT/OT Medication review. No changes. Depression. I added Zoloft last week.
[2019-08-16] MEDS: PRILOSEC PO SCH ×2 (06:01→20:17)
[2019-08-16] MEDS: HYDROCHLOROTHIAZIDE PO SCH (08:31)
[2019-08-16] MEDS: ZOLOFT PO SCH (08:31)
[2019-08-16] MEDS: VITAMIN B-12 PO SCH (08:31)
[2019-08-16] MEDS: NEPHRO-VITE PO SCH (08:31)
[2019-08-16] MEDS: FOLIC ACID PO SCH (08:31)
[2019-08-16] MEDS: SODIUM BICARBONATE PO SCH ×2 (08:31→20:18)
[2019-08-16] MEDS: MIRALAX PO SCH ×2 (08:31→20:18)
[2019-08-16] MEDS: COREG PO SCH ×2 (08:31→20:18)
[2019-08-16] MEDS: ASPIRIN EC PO SCH (08:31)
[2019-08-16] MEDS: DILAUDID IV PRN (08:38)
[2019-08-16] MEDS ORDERED: COLCRYS PO ONE (12:56)
--- NOTE | 2019-08-16 13:44 | PROGRESS NOTE ---
DATE: 08/16/2019 SUBJECTIVE: This morning, Mr. Torres referred to be doing well. Denies any new complaints. Mr. Torres has been in the hospital for the past 18 days. Initially presented because of because of shortness of breath, leg swelling. He was found to be in renal failure, which has been progressively getting worse. He is currently on dialysis, started on 08/06/2019, and he has had 4 sessions during the hospital course. OBJECTIVE: Current Vital Signs: Blood pressure is 105/80, pulse of 55, respirations are 20, temperature is 97.7 degrees. General Examination: Mr. Torres is an 83-year-old, elderly, - Citizen Of [place] gentleman. He is in bed. No distress. HEENT: Mucosa is pink and moist. Anicteric. Acyanotic. Neck: Supple. Chest: Good air entry bilaterally. There were no crepitations, no rhonchi. There is a tunneled right jugular dialysis catheter. Cardiovascular: Regular rate and rhythm. No murmurs, no rubs, no gallops. GI: Abdomen is soft, nontender. Bowel sounds present. Extremities: No pedal edema. MERCHANDISING ASSISTANT: The patient is awake, alert, and oriented. Laboratory Data: Hemoglobin is 7.4. ASSESSMENT: 1. Fluid overload on admission secondary to worsening kidney failure. This has been addressed with ultrafiltration. 2. Chronic kidney disease 5/end-stage renal disease. Patient is on hemodialysis. Nephrology is on board. 3. Left knee gout arthropathy with flare. The patient is status post arthrocentesis. The fluid is consistent with an inflammatory etiology and the crystals were positive for gout. The patient will be started on hemodialysis-dosed colchicine. 4. Normocytic anemia, presumably due to renal failure. The patient's iron studies are within normal range. Ferritin is actually 782, percent saturation is 16. I think the patient can be started on Epogen. We will, however, defer that to the foreign exchange trader on board. 5. Hypertension, controlled. 6. Generalized weakness and deconditioning. Patient is being seen on a daily basis by physical therapy. He was not able to participate a lot this morning because of pain. Recommendation is to get him to a skilled PT upon discharge. We are waiting on arrangement from social work and case management. cc: Jarred Chapman MD
--- NOTE | 2019-08-16 18:41 | PROVIDER PROGRESS NOTE ---
Progress Note Subjective: Mr. Torres voices feeling better than he has since he was admitted. He denies any uremic complaints. Objective: temperature 7.7, pulse 55, respirations 20, blood pressure 105/30, o2 sat 100% on 2 L nasal cannula. General elderly -Nepalese man lying in bed in no distress.. HEENT: normocephalic, atraumatic. Pupils equal and reactive, lipoma noted to right eye. Mucous membranes moist. Skin: warm and dry Neck: Supple, 6cm JVD with no hepatojugular reflux Cardiovascular: S1S2, regular rate and rhythm. No murmur or gallop noted. Respiratory: diminished bases anteriorly. Abdomen: soft, obese, nontender. Protrusion to the mid upper to right abdominal region. Active bowel sounds. : Suprapubic catheter in place with Rachel urine. Extremities: 1+ pitting to bilateral ankles and feet. Left upper arm over fistula sight is less firm and less tender. Neurological: alert and oriented to person, place, and time. Labs: intake 560, output 2250 Impression: Chronic kidney disease stage 5 with recent progression to need Renal replacement therapy. He had his hemodialysis treatment yesterday with a 2L ultrafiltration without complications. Blood pressure. In target. Fluid volume. Euvolemic on exam. Anemia. Low, does not meet transfusion criteria. low B12, folate, and iron. Replacing all. rg Electrolytes. Stable Acid base balance. Stable Nutrition. Encouraged to eat. Ambulation. Encouraged to participate with PT/OT Medication review. No changes.
[2019-08-17 05:35] LABS: HEMATOCRIT 26.6 % (42.0-52.0); HEMOGLOBIN 7.7 g/dL (14.0-18.0); MCH 28.3 PG (27-31); MCHC 28.9 g/dL (33-37); MCV 97.8 FL (81-99); RBC 2.72 XMIL (4.7-6.1); RDW 12.1 % (11.5-14.5); WBC 14.31 X1000 (4.8-10.8)
[2019-08-17] MEDS ORDERED: TIGHT: 0.2 ML/HR FOR DIALYSIS MISC PRN (06:13)
[2019-08-17] MEDS ORDERED: HEPARIN IV PRN (06:13)
[2019-08-17] MEDS ORDERED: NS 2,000 ML MISC PRN (06:13)
[2019-08-17 06:21] LABS: ALBUMIN 2.5 g/dL (3.5-5.0); CALCIUM 8.3 mg/dL (8.8-10.2); CREATININE 4.3 mg/dL (0.7-1.2); PHOSPHORUS 3.8 mg/dL (2.7-4.5); POTASSIUM 4.5 mmol/L (3.5-5.1)
[2019-08-17] MEDS: PRILOSEC PO SCH ×2 (06:28→20:14)
[2019-08-17] MEDS: ASPIRIN EC PO SCH (08:47)
[2019-08-17] MEDS: FOLIC ACID PO SCH (08:47)
[2019-08-17] MEDS: VITAMIN B-12 PO SCH (08:47)
[2019-08-17] MEDS: ZOLOFT PO SCH (08:47)
[2019-08-17] MEDS: HYDROCHLOROTHIAZIDE PO SCH (08:48)
[2019-08-17] MEDS: NEPHRO-VITE PO SCH (08:48)
[2019-08-17] MEDS: MIRALAX PO SCH ×2 (08:48→20:14)
[2019-08-17] MEDS: SODIUM BICARBONATE PO SCH ×2 (08:48→20:14)
[2019-08-17] MEDS: VENOFER 200 MG in NS 150 ML IV SCH (08:48)
[2019-08-17] MEDS: COREG PO SCH ×2 (08:48→20:14)
--- NOTE | 2019-08-17 14:10 | PROVIDER PROGRESS NOTE ---
Progress Note Subjective: He voices an episode of paroxysmal nocturnal dyspnea without chest pain, and diaphoresis. He voices feeling great now and has no uremic complaints. Objective: temperature 98.9, pulse 66, respirations 16, blood pressure 122/52, 02 sat 100% on 3 L nasal cannula. General elderly -[place] man lying in bed in no distress.. HEENT: normocephalic, atraumatic. Pupils equal and reactive, lipoma noted to right eye. Mucous membranes moist. Skin: warm and dry Neck: Supple, 6cm JVD with no hepatojugular reflux Cardiovascular: S1S2, regular rate and rhythm. No murmur or gallop noted. Respiratory: diminished bases posteriorly. Abdomen: soft, obese, nontender. Protrusion to the mid upper to right abdominal region. Active bowel sounds. : Suprapubic catheter in place with Rachel urine. Extremities: 1+ pitting to bilateral ankles and feet. Left upper arm over fistula sight is less firm and less tender. Neurological: alert and oriented to person, place, and time. Labs: WBC 14.31, hemoglobin 7.7, hematocrit 26.6, sodium 139, potassium 4.5, chloride 104, carbon dioxide 13, BUN 65, creatinine 4.3. Intake 444, output 450. Impression: Chronic kidney disease stage 5 with recent progression to need Renal replacement therapy. He will have his hemodialysis treatment with a 2K bath and attempt ultrafiltration to his last post dialysis weight. Anticipating transfer to [facility] after his dialysis today. Blood pressure. In target. Fluid volume. Euvolemic on exam. Anemia. Low, does not meet transfusion criteria. Electrolytes. Stable Acid base balance. Stable Nutrition. Encouraged to eat. Ambulation. Encouraged to participate with PT/OT Medication review. No changes.
[2019-08-18] MEDS: PRILOSEC PO SCH (06:06)
[2019-08-18] MEDS: VENOFER 200 MG in NS 150 ML IV SCH (08:34)
[2019-08-18] MEDS: MIRALAX PO SCH (08:34)
[2019-08-18] MEDS: VITAMIN B-12 PO SCH (08:41)
[2019-08-18] MEDS: ASPIRIN EC PO SCH (08:41)
[2019-08-18] MEDS: ZOLOFT PO SCH (08:42)
[2019-08-18] MEDS: NEPHRO-VITE PO SCH (08:42)
[2019-08-18] MEDS: SODIUM BICARBONATE PO SCH (08:42)
[2019-08-18] MEDS: COREG PO SCH (08:42)
[2019-08-18] MEDS: HYDROCHLOROTHIAZIDE PO SCH (08:42)
[2019-08-18] MEDS: FOLIC ACID PO SCH (08:42)
[2019-08-18] MEDS: DILAUDID IV PRN (09:04)
[2019-08-18] MEDS ORDERED: COLCRYS PO SCH (11:15)
--- NOTE | 2019-08-18 11:23 | DISCHARGE SUMMARY ---
ADMISSION DATE: 07/29/2019 DISCHARGE DATE: 08/18/2019 LENGTH OF STAY: Twenty days. INVASIVE PROCEDURES DONE DURING THIS ADMISSION: 1. Left knee arthrocentesis was done by Dr. Marrero. 2. A creation of a left brachioaxillary arteriovenous graft and then insertion of a tunneled hemodialysis catheter was done by Dr. Reece on 08/05/2019. CONSULTATIONS DURING THIS ADMISSION: 1. Nephrology was consulted. Patient was seen by Dr. Alcaraz. 2. Orthopedics was consulted. Patient was seen by Dr. Marrero. 3. Surgery was consulted. Patient was seen by Dr. Reece. IMAGING STUDIES OF SIGNIFICANCE: 1. A chest x-ray did show cardiomegaly. 2. An initial x-ray of the knee showed severe osteoarthritis. 3. Extremity venous Doppler study shows normal, no DVT. 4. Subsequent chest x-ray showed no changes. ADMISSION DIAGNOSES: 1. Fluid overload. 2. Diastolic dysfunction. 3. Chronic kidney disease stage 4. 4. Uncontrolled hypertension. DIAGNOSES AT THE TIME OF DISCHARGE: 1. Fluid overload on admission secondary to end-stage renal disease. 2. 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 A biopsy done in 2019 result noted. Patient has been started on renal replacement therapy. He is on a Thursday, Thursday, and Thursday schedule. 3. Left knee gout arthropathy with flare. The patient is status post left knee arthrocentesis. Fluid was consistent with an inflammatory etiology. Crystals were negative birefringent which was consistent with gout. 4. Normocytic anemia with underlying iron deficiency. Patient has gotten multiple doses of Venofer infusion. We will continue with nephrology management. 5. Hypertension, controlled. 6. Generalized weakness and deconditioning. Physical therapy was consulted. 7. Left ventricular hypertrophy secondary to hypertensive heart disease. Ejection fraction of 70% with diastolic dysfunction noted on echocardiogram. 8. Hyperuricemia. DISCHARGE MEDICATIONS: 1. Aspirin 81 mg p.o. daily. 2. Carvedilol 12.5 b.i.d. 3. MiraLAX. 4. Amlodipine 2.5 b.i.d. 5. Sodium bicarb. 6. Sertraline 50 mg p.o. q.a.m. 7. Losartan 25 mg p.o. daily. 8. Folic acid 1 mg p.o. daily. 9. Colchicine 0.3mg 2 times per week PRESENTING COMPLAINT: Shortness of breath, knee pains. HISTORY OF PRESENTING COMPLAINT: Mr. Torres is an 83-year-old, -[place] gentleman, normally follows up with Dr. Doe for his comorbidity management including hypertension, CKD. Came to the emergency department because of generalized weakness, both knees hurting but worse on the left, and edema in the lower extremities. Upon presentation, Mr. Torres was evaluated and admitted for further medical care. HOSPITAL COURSE: Mr. Torres was admitted to the medical floor. He was initially started on pain management for his arthritis. Physical therapy was consulted. Orthopedics was consulted because of the monoarticular swelling. Dr. Marrero evaluated him. An arthrocentesis was done. The fluid analysis is reported in his chart but it was consistent with an inflammatory joint. The crystals were negative birefringent, which was consistent with gout. Mr. Torres was given a one-time dose of colchicine. During the hospital course, Mr. Golds renal function also did not improve. His fluid status continued to worsen. He did fail maximal medical therapy so nephrology made a decision to start him on renal replacement therapy. Surgery was consulted. A graft was created and a tunneled catheter was also placed. He has had at least 5 sessions of hemodialysis during the hospital course. He has tolerated this very well. He is scheduled on Thursday, Thursday, and Thursday sessions. Mr. Torres was also seen by physical therapy on multiple occasions. This morning, Mr. Torres referred to be doing remarkably well. His fluid status has significantly improved with ultrafiltration. He is currently negative balance of 22,500 mL. He has been tolerating his meals. He has been having regular bowel movements. We think he is now stable to be transitioned to rehab to continue with his physical restorationism. Of note, Mr. Torres's hydrochlorothiazide and Lasix have all be discontinued because of gout and hyperuricemia. He has been started, however, on losartan and amlodipine for both blood pressure management and also to enhance uricosuria. He is also on renally dose colchicine Mr. Torres will follow up with Dr. Hebert Doe, Dr. Alcaraz. All the discharge instructions have been discussed with him and he voiced understanding. Time spent for discharge is 35 minutes. cc: MD Hebert Dunham MD Reginald D. Gladish, MD MTDD
[2019-08-18 11:49] VITALS: BP 112/48
--- NOTE | 2019-08-18 15:10 | PROVIDER PROGRESS NOTE ---
Progress Note Subjective: Denies any uremic complaints, he still voices left knee pain. Objective: temperature 98.0, pulse 68, respirations 20, blood pressure 121/51, O2 sat 100% on 3 L nasal cannula. General elderly -Serbian man lying in bed in no distress.. HEENT: normocephalic, atraumatic. Pupils equal and reactive, lipoma noted to right eye. Mucous membranes moist. Skin: warm and dry right tunnel cath Neck: Supple, 8cm JVD with no hepatojugular reflux Cardiovascular: S1S2, regular rate and rhythm. No murmur or gallop noted. Respiratory: diminished bases posteriorly. Abdomen: soft, obese, nontender. Protrusion to the mid upper to right abdominal region. Active bowel sounds. : Suprapubic catheter in place with Rachel urine. Extremities: 1+ pitting to bilateral ankles and feet. Left upper arm fistula with a tegaderm in place. Neurological: alert and oriented to person, place, and time. Labs: intake 630, output 2400 Impression: Chronic kidney disease stage 5 with recent progression to need Renal replacement therapy. He had hemodialysis yesterday with a 2L ultrafiltration. He is anticipating discharging to [facility] after his dialysis today. Blood pressure. In target. Fluid volume. Euvolemic on exam. Anemia. Low, does not meet transfusion criteria. On iron b12, folate Electrolytes. Stable Acid base balance. Stable Nutrition. Encouraged to eat. Ambulation. Encouraged to participate with PT/OT Gout. We will start back colchicine 0.6mg qday. Medication review. No changes.
[2019-08-18] MEDS ORDERED: NORVASC PO SCH (21:00)
== END 2019-08-18 15:54 | DRG 264 ==
LOC: SUPCPDRO → ED 13:34 → SUATTDRO 22:21 → 1N 22:21
PROVIDERS: ATTEND Internal Medicine

== ENCOUNTER 2019-08-26 10:09 | Inpatient (IN) ==
[2019-08-26] MEDS ORDERED: DUONEB (A & A) INH ONE (11:48)
--- NOTE | 2019-08-26 12:06 | Diag Imaging Result Doc PS360 ---
EXAM: CHEST-1 VIEW HISTORY: cough TECHNIQUE: Single view COMPARISON: 08/05/2019 FINDINGS: The lungs are well expanded. The heart is not enlarged. The vessels are not distended. There are no infiltrates. No effusion identified. Right jugular catheter in good position. No pneumothorax. IMPRESSION: No pneumonia Electronically signed by Brandon Childs 08/26/2019 12:03 PM
[2019-08-26 14:17] LABS: BASO# 0.05 X1000 (0.0-0.2); BASO% 0.6 % (0.0-0.8); EOS# 0.36 X1000 (0.0-0.7); EOS% 4.2 % (0.0-10.0); HEMATOCRIT 28.6 % (42.0-52.0); HEMOGLOBIN 8.4 g/dL (14.0-18.0); IMM GRAN# 0.05 X1000 (0.0-0.04); IMM GRAN% 0.6 % (0.0-0.5); LYMPH# 3.21 X1000 (1.2-3.4); LYMPH% 37.6 % (20.5-51.1); MCH 28.4 PG (27-31); MCHC 29.4 g/dL (33-37); MCV 96.6 FL (81-99); MONO# 0.88 X1000 (0.11-0.59); MONO% 10.3 % (1.7-9.3); MPV 9.7 FL (7.4-10.4); NEUT# 3.98 X1000 (1.4-6.5); NEUT% 46.7 % (42.2-75.2); PLT 357 X1000 (130-400); RBC 2.96 XMIL (4.7-6.1); RDW 12.6 % (11.5-14.5); WBC 8.53 X1000 (4.8-10.8)
[2019-08-26 14:20] LABS: INR 1.15; PROTIME 14.9 Seconds (11.0-16.0)
[2019-08-26 14:21] LABS: PTT 34.8 Seconds (22.3-41.8)
[2019-08-26 14:33] LABS: ALB/GLOB RATIO 0.8; ALBUMIN 2.8 g/dL (3.5-5.0); CALCIUM 7.7 mg/dL (8.8-10.2); CREATININE 3.9 mg/dL (0.7-1.2); POTASSIUM 4.6 mmol/L (3.5-5.1); TOTAL BILIRUBIN 0.27 mg/dL (0.20-1.00); TOTAL PROTEIN 6.2 g/dL (6.3-8.3); URIC ACID 4.1 mg/dL (3.4-7.0)
[2019-08-26] MEDS ORDERED: LASIX IV ONE (15:20)
--- NOTE | 2019-08-26 15:24 | PROVIDER DOCUMENTATION ---
This chart was entered by Aissatou Rivera Scribe, acting as scribe for Jos Gaston MD. HPI-General Adult - General Chief Complaint: Cough Stated Complaint: SOB, COUGHING Time Seen by Provider: 08/26/19 11:32 Source: patient, family, EMS Allergies/Adverse Reactions: Patient Allergies Allergy/AdvReac Type Severity Reaction Status Date / Time No Known Allergies Allergy Verified 08/26/19 13:34 Home Medications: Home Medication List Medication Instructions Recorded Confirmed Last Taken Type Aspirin [Aspir-Low] 1 tab PO DAILY 07/29/19 08/26/19 08/26/19 History Amlodipine [Norvasc] 2.5 mg PO BID tab 08/18/19 08/26/19 08/26/19 Rx Carvedilol [Coreg] 12.5 mg PO Q12H tab 08/18/19 08/26/19 08/26/19 Rx Colchicine [Colcrys] 0.3 mg PO DIRECTED #120 tab 08/18/19 08/26/19 08/26/19 Rx Folic Acid 1 mg PO DAILY tab 08/18/19 08/26/19 08/26/19 Rx Losartan [Cozaar] 25 mg PO DAILY #120 tab 08/18/19 08/26/19 08/26/19 Rx Polyethylene Glycol 3350 [Miralax] 17 gm PO BID powder, packet 08/18/19 08/26/19 Unknown Rx Sertraline [Zoloft] 50 mg PO QAM tab 08/18/19 08/26/19 08/26/19 Rx Sodium Bicarbonate 650 mg PO BID tab 08/18/19 08/26/19 08/26/19 Rx Cetirizine [Zyrtec] 1 tab PO DAILY 08/26/19 08/26/19 08/26/19 History Esomeprazole Magnesium [Heartburn 1 tab PO DAILY 08/26/19 08/26/19 08/26/19 History Treatment] Melatonin 1 tab PO QHS 08/26/19 08/26/19 08/25/19 History - History of Present Illness -Gen Adult Nature of Presenting Problems: 83 yobm presents to the ed with c/o dry cough, subjective fever and gout pain for 1 week. pt is currently at [facility] and has wilhelm in place. pt did do dialysis yesterday and mostly complains of gout pain. pt on exam is nontoxic in appearance and is in no obvious distress Location of Pain/Injury: reports: lower extremity Pain Radiation: reports: no radiation Quality of Pain: reports: aching, burning Severity: reports: moderate Onset/Duration: reports: 1 week ago Timing: reports: still present, constant Context/Activities at Onset: reports: light activity Modifying Factors: improves with: nothing Associated Symptoms: reports: cough, fever/chills (subjective), joint pain, trouble walking. denies: back/neck pain, chest pain, vomiting Similar Symptoms Previously?: Yes Recently seen or treated by another doctor?: Yes Review of Systems - Adult - REVIEW OF SYSTEMS - ADULT Constitutional: reports: see HPI, fever (subjective) Eyes: reports: no symptoms reported Ears, Nose, Mouth & Throat: reports: no symptoms reported Cardiovascular: denies: chest pain, palpitations Respiratory: reports: see HPI, cough. denies: shortness of breath, wheezing Gastrointestinal: denies: diarrhea, nausea, vomiting Genitourinary: reports: see HPI, other (cath in place) Musculoskeletal: reports: see HPI (left knee), joint pain. denies: back pain, neck pain Integumentary: reports: no symptoms reported Neurological: denies: dizziness/vertigo, headache/migraines Psychiatric: reports: no symptoms reported Endocrine: reports: no symptoms reported Hematologic/Lymphatic: reports: no symptoms reported Allergic/Immunologic: reports: no symptoms reported All Other Systems: Reviewed and Negative Past History - Adult - PAST MEDICAL HISTORY-ADULT Review of Records: reports: Old Records Reviewed, Nursing Assessment Review, Medications Reviewed, Social history reviewed & non-contributory. Major Childhood Illnesses: reports: denies history Cardiovascular: reports: CHF, HTN Respiratory: reports: denies history Gastrointestinal: reports: denies history Genitourinary: reports: dialysis, ESRD, kidney disease, kidney stones Musculoskeletal: reports: denies history Neurological: reports: denies history Psychiatric: reports: denies history Endocrine/Immune: reports: denies history Other Conditions: reports: denies history - PRIOR SURGERIES/PROCEDURES Surgical/Procedure History: reports: reviewed, not pertinent - IMMUNIZATION STATUS Childhood Immunizations: See Nurse Assessment Flu Vaccine: See Nurse Assessment - FAMILY HISTORY Family History: reviewed, not pertinent - SOCIAL HISTORY Smoking: denies Substance Use: denies Living Situation: care facility Physical Exam-General - PHYSICAL EXAM-ADULT Initial Vital Signs Reviewed: Yes - CONSTITUTIONAL General Appearance: appears well, alert, no apparent distress, obese - EYES Eyes: PERRL/EOMI, pink conjunctivae - HEAD, EARS, NOSE, MOUTH & THROAT HENMT: moist mucous membranes, dental decay - NECK Neck: non-tender, full range of motion, supple, normal inspection - RESPIRATORY Respiratory: no pleuratic chest pain, no respiratory distress, no accessory muscle use, rhonchi (bilateral) - CARDIOVASCULAR Cardiovascular: normal peripheral pulses, regular rate, rhythm - CHEST (BREASTS) Chest/Breast: deferred - GASTROINTESTINAL (ABDOMEN) Abdominal Exam: normal bowel sounds, non tender, soft - GENITOURINARY Male Genitalia: other (pt has cath in place from [facility]) Rectal Exam: deferred Hemoccult Exam: deferred - LYMPHATIC Lymphatic: no adenopathy - MUSCULOSKELETAL Back Exam: no CVA tenderness, no vertebral tenderness Extremity: normal capillary refill, pelvis stable, tenderness (left knee secondary to tx of gout) - SKIN Integumentary: normal color, normal turgor, warm/dry - NEUROLOGIC Neurologic: grossly normal - PSYCHIATRIC Psych/Mental Status: normal mood/affect, normal thought content, normal thought process, oriented x 3 Progress - PLAN OF CARE/RESULTS Progress/Plan/Lab Results: Vital Signs - 8 hr 08/26/19 10:14 08/26/19 11:05 Temperature 98.4 F 98.7 F Pulse Rate 73 73 Respiratory Rate 20 22 Blood Pressure 130/62 130/63 O2 Sat by Pulse Oximetry 100 100 Orders Category Date Time Status CHEST-1 VIEW [RAD] Stat Exams 08/26/19 11:46 Ordered BNP [PRO B-NATRIURETIC PEPTIDE] Stat Lab 08/26/19 11:47 Uncollected CBC WITH ELECTRONIC DIFF [HEME] Stat Lab 08/26/19 11:46 Uncollected COMPREHENSIVE METABOLIC PANEL [CHEM] Stat Lab 08/26/19 11:46 Uncollected PT [PROTIME WITH INR] [COAG] Stat Lab 08/26/19 11:46 Uncollected PTT [COAG] Stat Lab 08/26/19 11:46 Uncollected TROPONIN T HIGH SENSITIVITY Stat Lab 08/26/19 11:47 Uncollected URIC ACID [CHEM] Stat Lab 08/26/19 11:46 Uncollected Albuterol 2.5MG/Ipratrop 0.5MG [Duoneb (A & A)] Med 08/26/19 11:48 Discontinued 3 ml INH NOW ONE Aerosol Treatments Routine Oth 08/26/19 11:48 Active Aerosol Treatments Stat Oth 08/26/19 11:48 Active EKG [EKG] Stat Ther 08/26/19 11:46 Ordered Result Diagrams: 08/26/19 13:52 08/26/19 13:52 - REASSESSMENT Reassessment #1 Time Reassessed: 15:02 Status: improving (pt is resting in bed) - EKG 1 Time of EKG reading by physician:: 15:08 EKG Read and Signed by:: Jos Gaston (ST and T wave abnormality anterolat eral ischemia) EKG Interpretation (*Must complete 3 of following elements*): Abnormal Rate: 57 Rhythm: sinus bradycardia [place]: normal QRS: normal NC Interval: normal - XRAY 1 XRAY: Bilateral XRAY Study: Chest Impression: See EMR Report (EXAM: CHEST-1 VIEW HISTORY: cough TECHNIQUE: Single view COMPARISON: 08/05/2019 FINDINGS: The lungs are well expanded. The heart is not enlarged. The vessels are not distended. There are no infiltra antonietta. No effusion identified. Right jugular catheter in good position. No pneumothorax. IMPRESSION: No pneumonia Electronically signed by Brandon Childs 08/26/2019 12:03 PM 08/26/19 1203 Interpreting Physician: Brandon Childs MD Dictated Date/Time: 08/26/19 1202 cc: Jos Gaston MD; Hebert Doe MD) - CONSULTS/PCP/HOSPITALIST Notification #1 *Consult/PCP/Hospitalist*: Amy for hospitalist Time Discussed: 15:22 (spoke with amy) Consult Disposition: Will see in ED, Admit Departure - Departure Date of Disposition Decision: 08/26/19 Time of Disposition Decision: 15:23 DIAGNOSIS: Renal insufficiency, Chest pain, Acute exacerbation of CHF (congestive heart failure) Disposition: ADMITTED INPATIENT 09 Certified Medical Emergency: Emergent Condition: Fair Referrals and Follow-Ups: Hebert Doe MD [Primary Care Provider] - - Critical Care Note This patient required my direct & personal management of CC.: No Attestation - Physician/ HARJINDER Attestation Patient care was provided by Advanced Practice Provider:: No The physician spent face to face time with patient:: Yes Advanced Practice Provider documentation review:: Supervising physician onsite and consulted in the evaluation and care of this patient. The physician did have a face to face encounter with the patient. This chart was documented by the indicated scribe, (Aissatou Rivera Scribe) and accurately reflects the services I performed and decisions made by me, Jos Gaston MD, as attested by the provider's signature.
--- NOTE | 2019-08-26 15:52 | EKG Report ---
Test Performed on : 08/26/2019 3:08:47 PM Test Reason : cough, sob Blood Pressure : / mmHG Vent. Rate : 057 BPM Atrial Rate : 057 BPM P-R Int : 170 ms QRS Dur : 090 ms QT Int : 424 ms P-R-T Axes : 048 029 154 degrees QTc Int : [address] & T wave abnormality, consider anterolateral ischemia Abnormal ECG When compared with ECG of 29-JUL-2019 17:42, (Unconfirmed) Vent. rate has decreased BY [address] no longer depressed in Inferior leads ST no longer depressed in Anterior leads T wave inversion no longer evident in Inferior leads QT has shortened Unconfirmed Result
[2019-08-26] MEDS ORDERED: ZOFRAN IV PRN (16:31)
--- NOTE | 2019-08-26 17:16 | Diag Imaging Result Doc PS360 ---
EXAM: KNEE 3 VIEWS LEFT - 08/26/2019 HISTORY: pain TECHNIQUE: Left knee three views COMPARISON: 07/29/2019 FINDINGS: There are severe osteoarthritic changes similar to the prior exam. There is no discrete fracture or dislocation. IMPRESSION: Severe osteoarthritic changes. No discrete fracture or dislocation. Electronically signed by Madhu Clinton 08/26/2019 5:13 PM
--- NOTE | 2019-08-26 17:19 | Diag Imaging Result Doc PS360 ---
EXAM: FOOT COMPLETE LEFT - 08/26/2019 HISTORY: pain TECHNIQUE: Left foot three views COMPARISON: None. FINDINGS: There is calcaneal spurring which is most prominent at the Achilles tendon insertion. There is hallux valgus. There are degenerative/osteoarthritic changes. There are no discrete erosive or destructive changes. There is no fracture or dislocation identified. There is no opaque foreign body identified. IMPRESSION: Hallux valgus. Degenerative/osteoarthritic changes. No evidence of fracture or dislocation. No indication of osteomyelitis. Electronically signed by Madhu Clinton 08/26/2019 5:16 PM
[2019-08-26] MEDS: DUONEB (A & A) INH SCH ×2 (19:30→23:48)
[2019-08-26] MEDS: PULMICORT INH SCH (19:30)
--- NOTE | 2019-08-26 19:45 | HISTORY AND PHYSICAL ---
ADDENDUM: The patient seen and examined by me face to face. All the laboratory, vital signs, and images were reviewed. This patient presented with left knee pain and ankle pain that is really tender to palpation and mobilization. X-ray shows severe osteoarthritis. He also has a history of left knee gout and was discharged a few days ago because of that. I will continue with the same management. He has bilateral crackles and rales, but he is on dialysis. As per the patient, a long time ago he had a chemical exposure, and he has been having chemical bronchitis since then. I do believe we need to get the Orthopedic Surgery on board to evaluate this patient and treat this patient probably as an outpatient. I am not sure if this patient is going to be able to do any kind of knee replacement or ankle replacement based on his past medical history, age, and dialysis. Vital signs are stable as well as the laboratory, with chronic increased troponin due to end-stage renal disease, and slightly elevated proBNP. Dr. Alcaraz has been consulted. I agree with the rest of the nurse practitioner's assessment and plan. cc: Tim Ernst MD
--- NOTE | 2019-08-26 20:20 | HISTORY AND PHYSICAL ---
PRIMARY CARE PROVIDER: Hebert Doe MD ONCOLOGIST: Anuj Woods MD SEATER GRINDER: Lopez Alcaraz MD UROLOGIST: Joe Rose MD. He has a suprapubic catheter. CHIEF COMPLAINT: Shortness of breath and left knee pain. HISTORY OF PRESENT ILLNESS: Mr. Francisco J Torres is an 83-year-old male with a medical history of most recently being started on hemodialysis. He was actually admitted earlier this month for fluid volume overload along with diastolic dysfunction, uncontrolled hypertension. Since this past Thursday, he has been having increased shortness of breath, rattling in his chest, subjective fevers, and he has had worsening left knee pain and left foot pain. His left knee pain is so severe he can barely move it, and he goes to screaming. Currently dialysis is on Thursday, and Thursday. He had dialysis yesterday without any problems. As far as his cough goes, it is nonproductive. He came here with these complaints. The chest x-ray that was performed does not show any pneumonia. He is bradycardic on his EKG; no ST changes. He does have an elevated troponin, but he has a chronically elevated troponin. His chest pain he has is only when he is coughing. We will admit him for fluid volume overload. Most likely this is from volume. PAST MEDICAL HISTORY: 1. Severe osteoarthritis, specifically in the knees. 2. Diastolic dysfunction. 3. Endstage renal disease with dialysis on Thursday, , Thursday. 4. Hypertension. 5. Hypertensive heart disease. 6. Gout. 7. GERD. 8. Depression. 9. Insomnia. 10. 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 PAST SURGICAL HISTORY: 1. Left knee arthrocentesis just this month, July 2019. 2. Left brachioaxillary AV graft creation and insertion of a tunneled hemodialysis catheter, performed by Dr. Reece on 08/05/2019. 3. Suprapubic catheter placement by Dr. Rose. Apparently he has had it for a few years. SOCIAL HISTORY: Currently he is living in [facility]. They have to use a chair lift to get him into the wheelchair. Physical therapy hurts his knees too bad to work with physical therapy. Denies tobacco, alcohol or illicit drug use. 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 He also has a history of chemical inhalation and chemical bronchitis in the past. FAMILY HISTORY: Mother, diabetes. Father unknown. Three sisters, diabetes. A brother had lung disease but was a smoker. ALLERGIES: No known drug allergies. HOME MEDICATIONS: 1. Melatonin 3 mg p.o. nightly. 2. Aspirin 81 mg p.o. daily. 3. Nexium 20 mg p.o. daily. 4. Zyrtec 10 mg p.o. daily. 5. Colchicine 0.3 mg p.o. as directed. 6. Coreg 12.5 mg p.o. every 12 hours. 7. Losartan 25 mg p.o. daily. 8. Folic acid 1 mg p.o. daily. 9. MiraLAX 17 g p.o. twice daily. 10. Norvasc 2.5 mg p.o. twice daily. 11. Sodium bicarbonate 650 mg p.o. twice daily. 12. Zoloft 50 mg p.o. daily. REVIEW OF SYSTEMS: Fourteen-point review of systems are complete. All were negative except for those mentioned in above HPI. PHYSICAL EXAMINATION: VITAL SIGNS: Temperature 98.7 degrees, heart rate 74, respiratory rate 20, blood pressure 126/81, O2 saturation 100% on 2 L nasal cannula. GENERAL: He is 5 feet 9 inches tall, 213 pounds. BMI is 31.5. Mr. Francisco J Torres is an 83-year- old male. He is in no acute distress. He is able to answer questions appropriately. HEENT: Atraumatic, normocephalic. Pupils equal, round and reactive to light. Extraocular movements intact. Mucous membranes are moist. NECK: Trachea midline. CARDIOVASCULAR: S1, S2. Regular rate and rhythm. No rubs, gallops or murmurs. Lower extremity edema 1 to 2+. Dorsalis and radial pulses +2. Negative JVD or carotid bruits. PULMONARY: Coarse anterior and posteriorly, with expiratory wheezes noted throughout. No accessory muscle use or work of breathing noted. Tolerating 2 L nasal cannula. GASTROINTESTINAL: Soft, nontender, nondistended. Positive bowel sounds x4. GENITOURINARY: Suprapubic catheter in place, with clear yellow urine. Site is without infection. Followed by Dr. Rose. EXTREMITIES: He has difficulties moving his lower extremities due to the severe pain. His knees are permanently bent secondary to the severe osteoarthritis and the gout that he has in his knees. He also complains of left heel pain. It looks like there is some purplish hue to the left heel. LABORATORY DATA: White blood cells 8000, hemoglobin 8, hematocrit 28, platelet count 357,000. INR is 1.15, PTT is 34.8. Sodium 139, potassium 4.6, BUN 30, creatinine 3.9, glucose 85. Uric acid is 4.1. Calcium 7.7, bilirubin 0.27, AST 19, ALT 16. Troponin 203. ProBNP 1427. Albumin 2.8. DIAGNOSTIC DATA: Chest x-ray: No pneumonia. EKG: Sinus bradycardia, rate 57, QTc is 412. ASSESSMENT AND PLAN: 1. Dyspnea since Thursday, with signs and symptoms of fluid volume overload. [id number] diastolic heart failure. He received Lasix in the emergency room at 20 mg. He is an endstage renal disease, on dialysis patient. He received dialysis yesterday, so we will put in a consult for Dr. Alcaraz. 2. Endstage renal disease, on hemodialysis. Dr. Alcaraz consulted. 3. Severe left knee pain with severe osteoarthritis. Also right knee pain, but the left is worse, which is causing him to have decreased mobility and ambulation. He feels like it is a gout flare, but the uric acid is actually in normal range. We will continue the colchicine. He recently this month had a left knee arthrocentesis performed by Dr. Marrero. We will need to do something about the pain he is having in his left knee, since it is hindering his ability to be active. 4. Hypertension, currently is controlled. We will continue his home medications. 5. Deep venous thrombosis prophylaxis. Heparin 5000 units subcutaneously every 12 hours. 6. Chest pain, but this is associated with coughing. Every time he coughs he is having pain. His troponin is 203, but he has chronic troponinemia and this is also in the setting of congestive heart failure with endstage renal disease. Dictated by GWENDOLYN Rucker for Tim Ernst MD cc: GWENDOLYN Rucker MD
[2019-08-26] MEDS: MIRALAX PO SCH (20:52)
[2019-08-26] MEDS: HEPARIN SUBQ SCH (20:53)
[2019-08-26] MEDS: COREG PO SCH (20:53)
[2019-08-26] MEDS: NORVASC PO SCH (20:53)
[2019-08-26] MEDS: MELATONIN PO SCH (21:18)
[2019-08-26] MEDS: SODIUM BICARBONATE PO SCH (21:18)
[2019-08-27] MEDS: TYLENOL PO PRN ×2 (02:24→09:50)
[2019-08-27] MEDS: DUONEB (A & A) INH SCH ×6 (03:15→23:34)
[2019-08-27] MEDS: PRILOSEC PO SCH (06:16)
[2019-08-27 06:23] LABS: BASO# 0.03 X1000 (0.0-0.2); BASO% 0.4 % (0.0-0.8); EOS# 0.34 X1000 (0.0-0.7); HEMATOCRIT 29.6 % (42.0-52.0); HEMOGLOBIN 8.3 g/dL (14.0-18.0); IMM GRAN# 0.04 X1000 (0.0-0.04); IMM GRAN% 0.6 % (0.0-0.5); LYMPH# 2.71 X1000 (1.2-3.4); LYMPH% 39.7 % (20.5-51.1); MCH 27.6 PG (27-31); MCV 98.3 FL (81-99); MONO# 0.88 X1000 (0.11-0.59); MONO% 12.9 % (1.7-9.3); MPV 9.8 FL (7.4-10.4); NEUT# 2.82 X1000 (1.4-6.5); NEUT% 41.4 % (42.2-75.2); PLT 319 X1000 (130-400); RBC 3.01 XMIL (4.7-6.1); RDW 12.8 % (11.5-14.5); WBC 6.82 X1000 (4.8-10.8)
[2019-08-27 06:35] LABS: ALB/GLOB RATIO 0.7; ALBUMIN 2.6 g/dL (3.5-5.0); CREATININE 4.5 mg/dL (0.7-1.2); MAGNESIUM 1.8 mg/dL (1.5-2.7); POTASSIUM 4.4 mmol/L (3.5-5.1); TOTAL BILIRUBIN 0.27 mg/dL (0.20-1.00); TOTAL PROTEIN 6.2 g/dL (6.3-8.3)
[2019-08-27] MEDS ORDERED: TIGHT: 0.2 ML/HR FOR DIALYSIS MISC PRN (06:50)
[2019-08-27] MEDS ORDERED: HEPARIN IV PRN (06:50)
[2019-08-27] MEDS ORDERED: NS 2,000 ML MISC PRN (06:50)
--- NOTE | 2019-08-27 08:29 | NEPHROLOGY CONSULTATION ---
DATE: 08/27/2019 REASON FOR ADMISSION: Fluid volume overload. Shortness of breath. Left knee pain. REASON FOR CONSULTATION: ESRD, fluid volume overload, evaluate and treat. HISTORY OF PRESENT ILLNESS: This is an 83-year-old gentleman with history of diastolic dysfunction and recently started hemodialysis for his chronic kidney disease. The patient did go to dialysis on his last treatment day of . He was actually slightly below his dry weight and did have another 2 L removed at that time. The patient came to the hospital because of shortness of breath. Continued to worsen in the ER, along with his left knee pain that became so severe he could not move it. In the ER, a chest x-ray did not show pneumonia, but did show some chronic fluid overload. The patient was admitted for severe osteoarthritis, fluid volume overload, dyspnea, chest pain. Chest pain was worse with coughing. His labs and workup did not indicate any new cardiac issues. PAST MEDICAL HISTORY: End-stage renal disease. Hemodialysis, TTS, osteoarthritis, diastolic dysfunction, hypertension hypertensive heart disease, gout, GERD, depression, insomnia, chemical bronchitis. SURGICAL HISTORY: He has a tunneled dialysis catheter, suprapubic catheter. He has a left AV graft and left knee arthrocentesis earlier this month. ALLERGIES: None. HOME MEDICATIONS: Listed as aspirin, colchicine, Coreg, folic acid, MiraLAX, Norvasc, melatonin, Nexium, Zyrtec, losartan, sodium bicarbonate and Zoloft. FAMILY HISTORY: Noncontributory. SOCIAL HISTORY: No current EtOH, tobacco or illicit drug use. REVIEW OF SYSTEMS: Cough, shortness of breath, knee pain. PHYSICAL EXAMINATION: Vital Signs: Temperature 97.8 degrees, pulse 55, respiratory rate 17, blood pressure 130/57. Intake not measured. Output 325 mL voided. General: Chronically ill- appearing, elderly gentleman resting in bed. He is awake and alert. He is in no acute distress. HEENT: Normocephalic, atraumatic. ABDON. Conjunctivae are pale. Oral mucosa is moist. Neck: Supple. He has positive JVD. Cardiovascular: Regular rate and rhythm without murmur. Pulmonary: He has some wheezes bilaterally. No rales or rhonchi. Abdomen: Soft, with positive bowel sounds. : Not inspected. Minimal void. Extremities: No clubbing, cyanosis, edema. Integumentary: Skin is warm and dry. Tunneled dialysis catheter site clean, dry and intact. His left lower extremity in an immobilizer. LAB DATA: WBC of 6.8, hemoglobin 8.3. Sodium 138, potassium 4.4, CO2 26, creatinine 4.5. ASSESSMENT AND PLAN: 1. Chronic kidney disease 5 D. Today is his routine dialysis day. Again he was below his dry weight at his treatment on . We will challenge that dry weight for another 2 liters up to 4 kg if he tolerates that amount removal. Re-evaluate on Thursday for additional treatment. 2. Electrolytes, acid-base balance anemia on a 2 potassium bath today. Hemoglobin acceptable. Monitor. 3. Hypertension, controlled. 4. Chest pain. It appears more pleuritic in nature. 5. Left knee pain. He had fluid from the knee checked prior to this hospitalization and is noted as gout. Dictated by GWENDOLYN Geronimo for Lopez Alcaraz MD cc: Lopez Alcaraz MD [facility]
[2019-08-27] MEDS: PULMICORT INH SCH ×2 (08:52→19:17)
[2019-08-27] MEDS: ASPIRIN EC PO SCH (09:51)
[2019-08-27] MEDS: HEPARIN SUBQ SCH ×2 (09:51→22:59)
[2019-08-27] MEDS: SODIUM BICARBONATE PO SCH ×2 (09:51→23:00)
[2019-08-27] MEDS: COREG PO SCH ×2 (09:51→23:00)
[2019-08-27] MEDS: NORVASC PO SCH ×2 (09:51→22:59)
[2019-08-27] MEDS: FOLIC ACID PO SCH (09:52)
[2019-08-27] MEDS: ZYRTEC PO SCH (09:52)
[2019-08-27] MEDS: COZAAR PO SCH (09:52)
[2019-08-27] MEDS: ZOLOFT PO SCH (09:52)
[2019-08-27] MEDS: COLCRYS PO SCH (10:11)
--- NOTE | 2019-08-27 17:03 | PROGRESS NOTE ---
DATE: 08/27/2019 SUBJECTIVE: Today, Mr. Torres refers to be doing fairly okay. He still has some pains in the left knee, but feels a lot better. OBJECTIVE: Vital signs: Blood pressure 154/68, pulse of 60, respirations 18, and temperature 97.6 degrees. General: Mr. Torres is an 83 year old gentleman. He was in bed. He just finished on dialysis. HEENT: Mucosa is pink and moist. Anicteric. Acyanotic. Neck: Supple. Chest: Good air entry bilaterally. There were no crepitations. No rhonchi. Cardiovascular: Regular rate and rhythm. There are no murmurs. No rubs. No gallops. Abdomen: Soft. Nontender. Bowel sounds are present. There is a suprapubic catheter noted. Extremities: No pedal edema. The left knee is minimally swollen and tender, but it looks a lot better than when he was here the last time. The patient also has a right tunnel catheter for dialysis. ASSESSMENT: 1. End-stage renal disease on hemodialysis. 2. Left knee pain secondary to severe osteoarthritis and gout arthropathy. The patient is on colchicine. Physical Therapy has been consulted as well as Orthopedics. 3. Hypertension controlled. 4. Dyspnea on presentation, presumably from mild fluid overload, and improved with dialysis. cc: Jarred Chapman MD
--- NOTE | 2019-08-27 17:24 | Diag Imaging Result Doc PS360 ---
EXAM: CHEST-2 VIEWS INDICATION: sob TECHNIQUE: 2 views COMPARISON: 08/26/2019 FINDINGS: The right Vas-Cath is in stable position. The lungs remain grossly clear. There is no discrete pleural fluid collection or pneumothorax. The cardiomediastinal silhouette and central vasculature are grossly unremarkable. IMPRESSION: Stable chest with no definite acute pathology by plain radiograph. Electronically signed by Uzair Fortune 08/27/2019 5:22 PM
[2019-08-27] MEDS: MIRALAX PO SCH ×2 (17:27→23:00)
--- NOTE | 2019-08-27 17:43 | EKG Report ---
Test Performed on : 08/27/2019 06:08:33 AM Test Reason : chest pain Blood Pressure : / mmHG Vent. Rate : 051 BPM Atrial Rate : 051 BPM P-R Int : 178 ms QRS Dur : 092 ms QT Int : 446 ms P-R-T Axes : 049 034 138 degrees QTc Int : [address] & T wave abnormality, consider lateral ischemia Abnormal ECG Confirmed by Easton CEJA, Gamal Resendiz ([id number]) on 08/28/2019 9:24:56 AM
[2019-08-27] MEDS: MELATONIN PO SCH (22:59)
[2019-08-28] MEDS: DUONEB (A & A) INH SCH ×6 (03:03→23:32)
[2019-08-28 05:40] LABS: BASO# 0.05 X1000 (0.0-0.2); BASO% 0.5 % (0.0-0.8); EOS# 0.28 X1000 (0.0-0.7); EOS% 2.5 % (0.0-10.0); HEMATOCRIT 28.7 % (42.0-52.0); HEMOGLOBIN 8.2 g/dL (14.0-18.0); IMM GRAN# 0.14 X1000 (0.0-0.04); IMM GRAN% 1.3 % (0.0-0.5); LYMPH# 4.19 X1000 (1.2-3.4); LYMPH% 37.9 % (20.5-51.1); MCH 28.3 PG (27-31); MCHC 28.6 g/dL (33-37); MONO# 1.21 X1000 (0.11-0.59); MONO% 10.9 % (1.7-9.3); MPV 9.6 FL (7.4-10.4); NEUT% 46.9 % (42.2-75.2); PLT 327 X1000 (130-400); RDW 12.6 % (11.5-14.5); WBC 11.07 X1000 (4.8-10.8)
[2019-08-28 06:06] LABS: ALB/GLOB RATIO 0.7; ALBUMIN 2.6 g/dL (3.5-5.0); CREATININE 3.6 mg/dL (0.7-1.2); MAGNESIUM 1.8 mg/dL (1.5-2.7); POTASSIUM 4.1 mmol/L (3.5-5.1); TOTAL BILIRUBIN 0.27 mg/dL (0.20-1.00); TOTAL PROTEIN 6.5 g/dL (6.3-8.3)
[2019-08-28] MEDS: PRILOSEC PO SCH (06:32)
[2019-08-28 06:51] LABS: EOS 2 % (1-10); LYMPHS 36 % (21-51); MONO 11 % (1-9); SEGS 51 % (42-75)
[2019-08-28] MEDS: PULMICORT INH SCH ×2 (07:45→19:21)
[2019-08-28] MEDS: MIRALAX PO SCH ×2 (09:53→21:08)
[2019-08-28] MEDS: HEPARIN SUBQ SCH ×2 (09:54→21:08)
[2019-08-28] MEDS: COZAAR PO SCH (09:54)
[2019-08-28] MEDS: ZYRTEC PO SCH (09:54)
[2019-08-28] MEDS: NORVASC PO SCH ×2 (09:54→21:08)
[2019-08-28] MEDS: ZOLOFT PO SCH (09:55)
[2019-08-28] MEDS: ASPIRIN EC PO SCH (09:55)
[2019-08-28] MEDS: FOLIC ACID PO SCH (09:55)
[2019-08-28] MEDS: SODIUM BICARBONATE PO SCH ×2 (09:55→21:08)
[2019-08-28] MEDS: COREG PO SCH ×2 (09:55→21:12)
--- NOTE | 2019-08-28 13:01 | PROGRESS NOTE ---
DATE: 08/28/2019 SUBJECTIVE: I have seen and examined Mr. Torres today. He said he feels a lot better. He still has some pain in the left knee. He said he has been evaluated early on by orthopedics and there is a plan for intra-articular steroid injection today. OBJECTIVE: Vital Signs: Blood pressure is 109/56, pulse of 71, respirations are 16, temperature is 97.9 degrees, the patient is saturating 98% on room air. General Examination: Mr. Torres is an 83-year-old elderly, gentleman. He is in bed. No distress. HEENT: Mucosa is pink and moist. Anicteric. Acyanotic. Neck: Supple. Chest: Air entry is bilaterally reduced. There are a few rhonchi in the posterior lung lugo. Cardiovascular: Regular rate and rhythm. No murmurs, no rubs, no gallops. GI: Abdomen is soft. Minimally distended but nontender. There is a suprapubic catheter in place. Extremities: No pedal edema. The left knee is minimally swollen and tender. 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 ASSESSMENT: 1. Left knee pain secondary to severe osteoarthritis and gout arthropathy. The patient is currently on colchicine. Orthopedics has evaluated him. I understand there is a plan for injection of the knee. 2. Endstage renal disease, on hemodialysis. Nephrology is on board. 3. Hypertension, controlled. 4. Dyspnea on presentation, presumably from fluid overload, improved with dialysis. PLAN: In general, Mr. Torres was discharged to [facility] on August 18, 2019. Unfortunately, he said he was not getting adequate care and his left knee continues to be hurting, so he came back to the hospital. He was dialyzed yesterday. He started back on his colchicine and orthopedics has seen him again. I think there is a plan for an intra-articular steroid injection. Mr. Torres would want to be discharged home with home health. He said he does not want to go back to the rehab ([facility]). cc: Jarred Chapman MD
--- NOTE | 2019-08-28 13:22 | CONSULTATION ---
DATE OF CONSULTATION: 08/28/2019 FAMILY PHYSICIAN: Hebert Doe M.D. PRIMARY CARE PROVIDER: Hebert Doe M.D. ONCOLOGIST: Anuj Woods M.D. FINISH FILER: Lopez Alcaraz M.D. CONSULTING PHYSICIAN: Dr. Stout. CHIEF COMPLAINT: Left knee pain and left foot and ankle pain. HISTORY OF PRESENT ILLNESS: This 83-year-old, male was seen in bed 110A. He was apparently admitted secondary to dyspnea, end-stage renal disease, as well as severe left knee pain, with known severe osteoarthritis, as well as history of gout. He states over the last few days, he has had increased pain and swelling in the knee. He actually saw Dr. Marrero about a month ago, and had an aspiration done of the knee, which revealed gouty attack. He has been taking colchicine. He states it has helped some of his pain. He currently had dialysis on 08/26/2019. Denies any chest pain or shortness of breath currently. PAST MEDICAL HISTORY: Includes: 1. Severe osteoarthritis of the left knee and left ankle. 2. Diastolic dysfunction. 3. End-stage renal disease with dialysis Thursday, , Thursday. 4. Hypertension. 5. Gout. 6. Depression. 7. Insomnia. PAST SURGICAL HISTORY: 1. He has had a left brachial axillary AV graft. 2. Suprapubic catheter. MEDICATIONS: Melatonin, aspirin, Nexium, Zyrtec, colchicine, Coreg, losartan, folic acid, MiraLAX, Norvasc, sodium bicarb, Zoloft. ALLERGIES: No known drug allergies. SOCIAL HISTORY: Currently lives in [facility]. He does have to use a chair lift for wheelchair movement. No tobacco or illicit drugs. 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 FAMILY HISTORY: Mother with diabetes, as well as sisters with diabetes. REVIEW OF SYSTEMS: Negative, except stated otherwise above in the HPI. PHYSICAL EXAMINATION: General: He is currently alert and oriented to person, place, and time. HEENT: Head is normocephalic, atraumatic. Eyes: Pupils equal, round, react to light and accommodation. Extraocular muscles intact bilaterally. Ears: No otalgia or otorrhea. Throat is not injected. Neck: Supple. Trachea is midline. Cardiovascular: Regular rate and rhythm. Respiratory: No distress noted. Chest rise equal bilaterally. Abdomen: Soft, nontender. Musculoskeletal: He has got a large effusion to his left knee. No erythema. No sign of infection. He has got pain with any range of motion. Slight varus deformity present. No open wounds or sores. He has got a flexion contracture as well to the left knee. To the left foot and ankle, he has got no open wounds or sores. He has got pain with any range of motion at the tibiotalar joint. He has got a mild effusion or erythema. No sign of infection. Negative Homans bilaterally. Vital Signs: Temperature is 98.6 degrees, pulse 70, respirations 16, blood pressure 121/53, O2 sat is 96% on room air. ASSESSMENT: 1. Left knee primary osteoarthritis with secondary gouty osteoarthritis. 2. Left ankle osteoarthritis. 3. End-stage renal disease, currently on hemodialysis 3 days a week. 4. Hypertension. RECOMMENDATIONS: The patient had an arthrocentesis performed, which demonstrated acute gouty attack in July by Dr. Marrero. He states the colchicine is improving. From a medical standpoint, he is not a candidate for a total knee arthroplasty due to multiple medical comorbidities. If primary team is okay, we can inject the left knee with a steroid injection. This should significantly improve his overall swelling and symptoms. Thank you for this consultation. cc: Leonel Patel DO
[2019-08-28] MEDS: TYLENOL PO PRN (21:08)
[2019-08-28] MEDS: MELATONIN PO SCH (21:08)
[2019-08-29] MEDS: DUONEB (A & A) INH SCH ×6 (03:40→23:08)
[2019-08-29] MEDS: PRILOSEC PO SCH (06:49)
[2019-08-29 06:55] LABS: BASO# 0.02 X1000 (0.0-0.2); BASO% 0.2 % (0.0-0.8); EOS# 0.34 X1000 (0.0-0.7); EOS% 2.9 % (0.0-10.0); HEMATOCRIT 29.6 % (42.0-52.0); HEMOGLOBIN 8.4 g/dL (14.0-18.0); IMM GRAN# 0.18 X1000 (0.0-0.04); IMM GRAN% 1.5 % (0.0-0.5); LYMPH# 4.05 X1000 (1.2-3.4); LYMPH% 34.5 % (20.5-51.1); MCH 27.8 PG (27-31); MCHC 28.4 g/dL (33-37); MONO# 1.39 X1000 (0.11-0.59); MONO% 11.8 % (1.7-9.3); NEUT# 5.77 X1000 (1.4-6.5); NEUT% 49.1 % (42.2-75.2); PLT 321 X1000 (130-400); RBC 3.02 XMIL (4.7-6.1); RDW 12.9 % (11.5-14.5); WBC 11.75 X1000 (4.8-10.8)
[2019-08-29 07:17] LABS: ALB/GLOB RATIO 0.7; ALBUMIN 2.6 g/dL (3.5-5.0); CREATININE 4.8 mg/dL (0.7-1.2); MAGNESIUM 1.8 mg/dL (1.5-2.7); POTASSIUM 4.4 mmol/L (3.5-5.1); TOTAL BILIRUBIN 0.35 mg/dL (0.20-1.00); TOTAL PROTEIN 6.5 g/dL (6.3-8.3)
[2019-08-29] MEDS: PULMICORT INH SCH ×2 (07:49→19:32)
[2019-08-29 07:55] LABS: BANDS 2 % (0-1); LYMPHS 32 % (21-51); MONO 6 % (1-9); SEGS 58 % (42-75)
[2019-08-29 07:56] LABS: HYPOCHROM 1+
[2019-08-29] MEDS: MIRALAX PO SCH ×2 (08:15→21:24)
[2019-08-29] MEDS: FOLIC ACID PO SCH (08:15)
[2019-08-29] MEDS: SODIUM BICARBONATE PO SCH ×2 (08:15→21:23)
[2019-08-29] MEDS: ASPIRIN EC PO SCH (08:16)
[2019-08-29] MEDS: COZAAR PO SCH (08:16)
[2019-08-29] MEDS: HEPARIN SUBQ SCH ×2 (08:16→21:23)
[2019-08-29] MEDS: ZYRTEC PO SCH (08:16)
[2019-08-29] MEDS: ZOLOFT PO SCH (08:16)
[2019-08-29] MEDS: COREG PO SCH ×2 (08:16→21:22)
[2019-08-29] MEDS: NORVASC PO SCH ×2 (08:16→21:23)
[2019-08-29] MEDS ORDERED: XYLOCAINE-MPF 0.5% INJ ONE (12:00)
[2019-08-29] MEDS ORDERED: DEPO-MEDROL MISC ONE (12:01)
[2019-08-29] MEDS ORDERED: MARCAINE 0.25% INJ ONE (12:01)
--- NOTE | 2019-08-29 13:12 | ORTHOPAEDICS PROGRESS NOTE ---
DATE: 08/29/2019 SUBJECTIVE DATA: Mr. Torres is seen for his concurrent left knee pain with gouty arthritis flare- up. He reports his pain is 8/10 at this time. He states that he has been taking his colchicine, and that it is steadily getting worse and swelling more. He reports that he talked to Dr. Patel over the weekend, and that he had mentioned an injection in his left knee. OBJECTIVE DATA: There is a +2 effusion to the left knee. There is decreased range of motion due to swelling and pain. There is tenderness throughout the knee. There is a questionable Rodo's sign. There is negative Homans sign. There is good sensation. There are good pedal pulses. ASSESSMENT: Gouty arthritis flare-up, left knee. PLAN: At this time, I have aspirated the left knee, and obtained roughly 40 mL of yellow, cloudy fluid. This is consistent with his gouty arthritis. We went ahead and injected the left knee today with Depo-Medrol 80 mg, as well as lidocaine and Marcaine. He will need to follow up with us once he gets out of the hospital in roughly 2 weeks to see if he is still improving. If it starts to swell any more, we may need to drain it again. Dictated by GWENDOLYN James for Irvin Jernigan MD cc: GWENDOLYN James MD
--- NOTE | 2019-08-29 14:45 | PROGRESS NOTE ---
DATE: 08/29/2019 SUBJECTIVE: This patient seems to be feeling better. He is still complaining of left knee pain. He is getting a steroid shot in the knee today. I have talked to the family about this patient. He has been refusing to go to a rehab center. He will go home tomorrow morning. He is going to be re-evaluated today for additional treatment with dialysis as well and depending on that, hopefully, this patient can be discharged tomorrow morning. OBJECTIVE: Vital Signs: Temperature 98.1 degrees, pulse 66, respiratory rate 16, blood pressure 121/48, oxygen saturation 96 on room air. HEENT: Head normocephalic. No trauma. PERRLA. Neck: Supple. No JVD. No masses. Central trachea. Chest: Clear to auscultation. Some crepitus bilaterally and a few rhonchi. He has a dialysis catheter on the right upper chest. Abdomen: Soft, nontender, nondistended. No hepatosplenomegaly. Extremities: He has left knee edema. No clubbing. No cyanosis. Also, he has left ankle pain. Neurological Examination: The patient is alert. He is oriented. He is following commands. He does have generalized weakness. Laboratory: WBC 11.7, hemoglobin 8.4, hematocrit 29.6, platelets 321,000. Sodium 140, potassium 4.4, chloride 100, bicarbonate 28, BUN 31, creatinine 4.8, glucose 100, calcium 8, magnesium 1.8, albumin 2.6. ASSESSMENT AND PLAN: 1. Left knee pain secondary to severe osteoarthritis and gout arthropathy. This patient is currently on colchicine. Orthopedic surgery evaluated this patient. He is getting a steroid shot today. He is not able to ambulate. Case discussed with the family. He does not want to go back to a rehab center. 2. End-stage renal disease, on hemodialysis. Nephrology department will re-evaluate this patient today to see if he needs more treatment. We will continue to monitor and hopefully tomorrow, he can be discharged home. This can be after dialysis if a dialysis is an option for him tomorrow. 3. Hypertension, stable. 4. Shortness of breath on presentation, likely due to fluid overload. That is better with dialysis. 5. The patient came from [facility] on 08/18/2019. Unfortunately, he does not want to go back to the rehab center. He wants to go home with home health so this has been set up and hopefully tomorrow morning, I will discharge him. I will wait for the final evaluation by orthopedic surgery and nephrology department. cc: Tim Ernst MD
--- NOTE | 2019-08-29 14:55 | PROVIDER PROGRESS NOTE ---
Progress Note Subjective: He complains of left knee pain. He denies any uremic complaints. Objective: temperature 98.1, pulse 66, respirations 16, blood pressure 132/53, 02 sat 99% on room air. General elderly -Haitian man lying in bed in no distress.. HEENT: normocephalic, atraumatic. Pupils equal and reactive, lipoma noted to right eye. Mucous membranes moist. Skin: warm and dry. Right tunnel catheter. Neck: Supple, 6cm JVD Cardiovascular: S1S2, regular rate and rhythm. No murmur or gallop noted. Respiratory: diminished bases anteriorly. Abdomen: soft, obese, nontender. Protrusion to the mid upper to right abdominal region. Active bowel sounds. : Suprapubic catheter in place. Extremities: 1+ pitting to bilateral ankles and feet. Left upper arm fistula. Neurological: alert and oriented to person, place, and time. Labs: WBC 11.75, hemoglobin 8.4, hematocrit 29.6, platelet count 321, sodium 140, potassium 4.4, chloride 100, carbon dioxide 28, BUN 31, creatinine 4.8. Intake 340, output 400. Impression: Chronic kidney disease stage 5D. He will have his routine hemodialysis treatment tomorrow. He denies any urinary complaints at present. Left knee pain. Defer to primary and surgery. Blood pressure. In target. Fluid volume. Euvolemic. Anemia. Stable. Electrolytes. Stable. Acid base balance. Stable. Nutrition. Adequate. Ambulation. Consult PT/OT Medication review. No changes.
[2019-08-29] MEDS: MELATONIN PO SCH (21:22)
[2019-08-30] MEDS: DUONEB (A & A) INH SCH ×4 (03:37→15:26)
[2019-08-30 05:46] LABS: BASO# 0.02 X1000 (0.0-0.2); BASO% 0.1 % (0.0-0.8); EOS# 0.04 X1000 (0.0-0.7); EOS% 0.3 % (0.0-10.0); HEMATOCRIT 30.3 % (42.0-52.0); HEMOGLOBIN 8.5 g/dL (14.0-18.0); IMM GRAN# 0.18 X1000 (0.0-0.04); IMM GRAN% 1.3 % (0.0-0.5); LYMPH# 2.31 X1000 (1.2-3.4); LYMPH% 16.5 % (20.5-51.1); MCH 27.4 PG (27-31); MCHC 28.1 g/dL (33-37); MCV 97.7 FL (81-99); MONO# 0.86 X1000 (0.11-0.59); MONO% 6.2 % (1.7-9.3); MPV 9.8 FL (7.4-10.4); NEUT# 10.55 X1000 (1.4-6.5); NEUT% 75.6 % (42.2-75.2); PLT 312 X1000 (130-400); WBC 13.96 X1000 (4.8-10.8)
[2019-08-30] MEDS ORDERED: TIGHT: 0.2 ML/HR FOR DIALYSIS MISC PRN (06:06)
[2019-08-30] MEDS ORDERED: HEPARIN IV PRN (06:06)
[2019-08-30] MEDS ORDERED: NS 2,000 ML MISC PRN (06:06)
[2019-08-30] MEDS: PRILOSEC PO SCH (06:26)
[2019-08-30 06:28] LABS: ALB/GLOB RATIO 0.7; ALBUMIN 2.7 g/dL (3.5-5.0); CREATININE 5.4 mg/dL (0.7-1.2); MAGNESIUM 1.9 mg/dL (1.5-2.7); POTASSIUM 5.6 mmol/L (3.5-5.1); TOTAL BILIRUBIN 0.25 mg/dL (0.20-1.00); TOTAL PROTEIN 6.8 g/dL (6.3-8.3)
[2019-08-30] MEDS: PULMICORT INH SCH (07:48)
[2019-08-30 08:59] VITALS: BP 125/63
[2019-08-30] MEDS: MIRALAX PO SCH (09:14)
[2019-08-30] MEDS: NORVASC PO SCH (09:15)
[2019-08-30] MEDS: ZOLOFT PO SCH (09:15)
[2019-08-30] MEDS: COREG PO SCH (09:16)
[2019-08-30] MEDS: COLCRYS PO SCH (09:16)
[2019-08-30] MEDS: HEPARIN SUBQ SCH (09:16)
[2019-08-30] MEDS: SODIUM BICARBONATE PO SCH (09:16)
[2019-08-30] MEDS: ZYRTEC PO SCH (09:16)
[2019-08-30] MEDS: ASPIRIN EC PO SCH (09:16)
[2019-08-30] MEDS: FOLIC ACID PO SCH (09:16)
[2019-08-30] MEDS: COZAAR PO SCH (09:16)
--- NOTE | 2019-08-30 16:18 | PROVIDER PROGRESS NOTE ---
Progress Note Subjective: He voices relief of knee pain with Depo-Medrol, lidocaine, and Marcaine injection. He has no uremic complaints. Objective: temperature 98.2, pulse 73, respirations 11, blood pressure 125/63, 02 sat 98% on room air. General elderly -Thai man lying in bed in no distress.. HEENT: normocephalic, atraumatic. Pupils equal and reactive, lipoma noted to right eye. Mucous membranes moist. Skin: warm and dry. Right tunnel catheter. Neck: Supple, 6cm JVD Cardiovascular: S1S2, regular rate and rhythm. No murmur or gallop noted. Respiratory: diminished bases anteriorly. Abdomen: soft, obese, nontender. Protrusion to the mid upper to right abdominal region. Active bowel sounds. : Suprapubic catheter in place with cloudy sediment in tubing. Extremities: 1+ pitting to bilateral ankles and feet. Left upper arm fistula. Neurological: alert and oriented to person, place, and time. Labs: WBC 13.96, hemoglobin 8.5, hematocrit 30.3, platelet count 312, sodium 137, potassium 5.6, chloride 98, carbon dioxide 27, BUN 42, creatinine 5.4. Intake 240, output 700. Impression: Chronic kidney disease stage 5D. He will have his routine hemodialysis treatment with a 2.0 potassium, 2.5 calcium bath and a goal of 3-4 L ultrafiltration. Left knee pain. Resolved with Depo-Medrol, lidocaine, and Marcaine injection. Blood pressure. In target. Fluid volume. Euvolemic. Anemia. Stable. Electrolytes. Corrections with hemodialysis today Acid base balance. Stable. Nutrition. Adequate. Ambulation. PT consulted and evaluated yesterday Medication review. No changes.
--- NOTE | 2019-08-30 21:56 | DISCHARGE SUMMARY ---
ADMISSION DATE: 08/26/2019 DISCHARGE DATE: 08/30/2019 DISCHARGE DIAGNOSES: 1. Left knee pain secondary to severe osteoarthritis and gout arthropathy. 2. End-stage renal disease on hemodialysis. 3. Hypertension. 4. Shortness of breath on presentation, resolved, likely due to fluid overload. 5. Fluid overload, resolved. 6. The patient came from [facility] on 08/25/2019. Unfortunately, he does not want to go back to the rehab. He wants to go home with home health, yesterday the case had been discussed with the daughter and they agree with that. 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 Apparently for a few days, he has been having increasing shortness of breath. He has been having some subjective fever and worsening left knee pain and left foot pain, x-ray showed severe osteoarthritis on both places. He has a history of gout in the left knee that is being currently treating, he has been admitted and evaluated by Nephrology Department and Orthopedic Surgery Department. Unfortunately, he is not a good candidate for any kind of intervention/replacement of that knee, but he received an injection with steroids and he is feeling better. He was complaining of some breathing problem upon admission, but likely that was related with some fluid overload that was corrected after dialysis, the patient is awake. He is oriented. He is able to eat by himself, as per the patient he is feeling fine, he will be discharged home with home health since he does not want to go to a rehab center. PHYSICAL EXAMINATION: Temperature 98.2 degrees, pulse 73, respiratory rate 11, blood pressure 125/63, oxygen saturation 98 on room air. HEENT: Head normocephalic, no trauma. PERRLA. Neck: Supple. No JVD. No masses. Central trachea. Chest: Clear to auscultation. Some crepitus bilaterally. He has a dialysis catheter on the right upper chest. Abdomen: Soft, nontender, nondistended. No hepatosplenomegaly. Extremities: He has left knee edema. No clubbing. No cyanosis. He also has left ankle pain. Neurological Examination: The patient is alert. He is oriented. He is following commands. He does have generalized weakness and he is not able to ambulate because of the pain. LABORATORY: WBC 13.9, hemoglobin 8.5, hematocrit 30.3, platelet 312,000. Sodium 137, potassium 5.6, chloride 98, bicarbonate 27, BUN 42, creatinine 5.4, glucose 151, calcium 8, albumin 2.7. DISCHARGE MEDICATIONS: 1. DuoNeb 3 mL inhaler every 4 hours as needed for shortness of breath. 2. Amlodipine 2.5 mg p.o. b.i.d. 3. Aspirin 1 tablet p.o. daily. 4. Carvedilol 12.5 mg p.o. q. 12 hours. 5. Zyrtec 1 tablet p.o. daily. 6. Colchicine 0.3 mg as directed, on Thursday and Saturdays. 7. Esomeprazole 1 tablet p.o. daily. 8. Folic acid 1 mg p.o. daily. 9. Losartan 25 mg p.o. daily. 10. Melatonin 3 mg p.o. at bedtime. 11. MiraLAX 17 g p.o. b.i.d., this can be held if he is having more than 2 or 3 bowel movements. 12. Zoloft 50 mg p.o. q.a.m. 13. Sodium bicarb 650 mg p.o. b.i.d. 14. Tramadol 25 mg p.o. q. 8 hours p.r.n. for pain. cc: Tim Ernst MD
== END 2019-08-30 17:03 | disposition home health service (06) | DRG 291 ==
LOC: SUPCPDRO → ED 10:09 → EDIPHOLD 16:38 → SUATTDRO 16:38 → 1N 22:13
PROVIDERS: ATTEND Internal Medicine